=== PATIENT | male | born 1950 | race Caucasian/White ===

== ENCOUNTER 2023-01-18 14:49 | Outpatient (RCR) | payer MEDICARE, OTHER, SELFPAY | END 2023-01-18 23:59 | disposition home or self-care (01) | LOC: RST 14:49 | PROVIDERS: ATTENDING PHYSICIAN Physical Medicine & Rehabilitation; FAMILY PHYSICIAN Family Medicine | DX: R13.12 Dysphagia, oropharyngeal phase (principal); R47.1 Dysarthria and anarthria; Z85.810 Personal history of malignant neoplasm of tongue | CPT/HCPCS: 92507; 92526 ==

== ENCOUNTER 2023-03-08 13:51 | Outpatient (RCR) | payer MEDICARE, OTHER, SELFPAY | END 2023-03-08 15:43 | disposition home or self-care (01) | LOC: RST 13:51 | PROVIDERS: ATTENDING PHYSICIAN Physical Medicine & Rehabilitation; FAMILY PHYSICIAN Family Medicine | DX: R13.12 Dysphagia, oropharyngeal phase (principal); R47.1 Dysarthria and anarthria; Z85.810 Personal history of malignant neoplasm of tongue | CPT/HCPCS: 92507; 92526 ==

== ENCOUNTER 2023-03-11 16:11 | Outpatient (RCR) | payer MEDICARE, OTHER, SELFPAY | END 2023-03-11 23:59 | disposition home or self-care (01) | LOC: CRHB 16:11 | PROVIDERS: ATTENDING PHYSICIAN Internal Medicine | DX: I25.10 Atherosclerotic heart disease of native coronary artery without angina pectoris (principal); Z95.1 Presence of aortocoronary bypass graft | CPT/HCPCS: G0422 ==

== ENCOUNTER 2023-03-14 05:04 | Observation (INO) | payer MEDICARE, OTHER, SELFPAY ==
[2023-03-13 20:43] VITALS: BP 110/82; BMI 22.0
[2023-03-13 21:33] LABS: % Basophils 0.4 % (0-2); % Eosinophils 0.6 % (0-6); % Immature Granulocytes 0.1 % (0-0.5); % Monocytes 7.5 % (1.7-9.3); % Neutrophils 75.4 % (42.2-75.2); Absolute Lymphocytes 1.1 10^3/uL (1.2-3.4); Absolute Monocytes 0.5 10^3/uL (0.1-0.6); Absolute Neutrophils 5.2 10^3/uL (1.4-6.5); Hematocrit 41.9 % (39.0-52.0); Hemoglobin 13.9 g/dL (13.0-18.0); Mean Corp Hgb Conc. 33.2 g/dL (33.0-37.0); Mean Corpuscular Hgb 31.2 pg (27.0-31.0); Mean Corpuscular Volume 93.9 fL (80.0-94.0); Mean Platelet Volume 10.8 fL (7.4-10.4); Nucleated Red Blood Cells % 0 % (-); Platelet Count 226 10^3/uL (130-400); Red Blood Cell Count 4.46 10^6/uL (4.70-6.10); Red Cell Dist. Width 13.3 % (11.5-14.5); White Blood Cell Count 6.9 10^3/uL (4.8-10.8)
[2023-03-13 21:44] LABS: Lactic Acid 1.3 mmol/L (0.7-2.0)
[2023-03-13 21:50] LABS: ALT (SGPT) 18 U/L (0-50); AST (SGOT) 32 U/L (17-59); Albumin 4.5 g/dl (3.5-5.0); Alkaline Phosphatase 124 U/L (38-126); Blood Urea Nitrogen 24 mg/dl (9-20); Calcium 9.8 mg/dl (8.4-10.2); Carbon Dioxide 29 mmol/L (22-30); Chloride 99 mmol/L (98-107); Estimated Creatinine Clearance 111 ml/min; Glucose 141 mg/dl (70-99); Lipase 207 U/L (23-300); Potassium 4.3 mmol/L (3.5-5.1); Sodium 135 mmol/L (135-145); Total Bilirubin 1.1 mg/dl (0.2-1.3); Total Protein 7.6 g/dl (6.3-8.2); eGFR > 60.00
[2023-03-13 21:57] LABS: Troponin I < 0.012 ng/ml
--- NOTE | 2023-03-13 22:04 | ED.GENMED ---
History of Present Illness
General
Chief Complaint: Abdominal Pain
Source: patient and family
Time Seen by Provider: 03/13/23 21:54
Travel History
Have you had any contact with someone who has COVID-19?: No
Do you have any symptoms of coronavirus? Fever > 100 degrees, chills, cough, shortness of breath, sore throat, loss of taste or smell, muscle aches, or headache?: No
History of Present Illness
History of Present Illness:
This patient is a 73-year-old male with a history of CAD, A-fib, neck cancer status post resection, feeding tube, COPD, etc. who presents emergency department complaints of upper abdominal pain since about 530 tonight. The pain was gradual in onset
and getting worse. Sometimes he notes the pain also in his back. The pain was not sudden onset. He denies vomiting but does note nausea. He denies fever, chills, chest pain, shortness of breath, lower abdominal pain, urinary symptoms. Patient
uses feeding tube for a afternoon feeding without difficulty. Patient denies other complaints. Of note, patient just finished cardiac rehab today with a 'passed with [facility]' report.
Past History
Past History
ED Past Medical History: Cancer (tongue, txed w/ chemo/XRT), GERD and HTN; Negative CAD or NIDDM
ED Past Surgical History: Other (radical neck)
Patient has exhibited threatening behavior?: No
PSI?: No
Social History
Tobacco: Non-smoker
Alcohol: None
Drug: None
Personal:
Employment: Employed
Phy Exam
Physical Exam
Physical Exam:
GENERAL: Alert , in no apparent distress
EYE: pupils equal and reactive
NECK: Supple, no significant adenopathy, obvious area of resection noted at the left anterior neck area without swelling redness warm.
ENT: o/p clr, mm slightly dry.
CARDIAC: Regular rate and rhythm .
LUNGS: Clear breath sounds bilaterally, no acute respiratory distress, no wheezes/rales/rhonchi
ABDOMEN: Soft, moderate epigastric tenderness, no r/g, normal active bowel sounds, feeding tube without surrounding drainage or bleeding
NEUROLOGICAL: Alert and oriented, no focal neuro deficits
SKIN: Warm and dry, skin intact.
MUSCULOSKELETAL: No edema, well perfused.
PSYCH: Normal and appropriate interaction.
Course
Orders/Labs/Results
Orders:
Orders
03/13/23 20:48
Electrocardiogram (*1) Urgent
Reason for Study: Chest Pain
EKG- Treatment ONCE
03/13/23 21:12
Complete Blood Count/With Diff Urgent
Comprehensive Metabolic Panel Urgent
Lipase Urgent
Comment: ADD ON
Troponin I Urgent
03/13/23 21:21
Add On- LAB Urgent
Tests Added?: lipase
03/13/23 21:25
Lactic Acid Urgent
Blood Culture Urgent
JOCELYN Source: Blood/Venous
Specimen Description:
03/13/23 22:01
HYDROmorphone [Dilaudid] 1 mg IV NOW STA
03/13/23 22:04
CT Abd/Pel (IV only)-DH only Urgent
Comment:
Reason For Exam: upper abd pain, n
Ondansetron Injectable [Zofran] 4 mg IV NOW STA
03/14/23 00:12
CXR2 [CR Chest - 2 Views ] Stat
Comment:
Reason For Exam: pain
03/14/23 00:20
Troponin I Urgent
03/14/23 01:51
HYDROmorphone [Dilaudid] 1 mg IV NOW STA
03/14/23 01:52
Piperacillin/Tazo 4.5 Gram [Zosyn] 4.5 gram in 100 ml IV NOW
03/14/23 04:00
Admit/Transfer Patient As Directed
Co-Sign Provider:
Level of Care: Observation services
Assign to:: Telemetry
Physician / Group: Ruddy
Diagnosis: Abd Pain
Reason for Telemetry: Chest Pain syndromes
Date to Stop Telemetry: 03/16/23
Time to Stop Telemetry: 11:00
03/14/23 04:01
Code Status As Directed
Resuscitation Status: Full Code
03/14/23 05:31
0.9% Sodium Chloride 1000 ml [Nss] 1,000 ml IV 80 mls/hr
Acetaminophen [Tylenol Oral Solution] 325 mg TUBE Q4HPRN PRN
HYDROmorphone [Dilaudid] 0.5 mg IV Q4HPRN PRN
Ondansetron Injectable [Zofran] 4 mg IV Q6HPRN PRN
03/14/23 05:31
DIETARY CONSULT Routine
Reason for Consult: Tube feeding
Activity As Directed
Activity Level: Ambulate
With Assistance
Bladder Scan As Directed
Follow Bladder Retention/Intermittent Cath Algorithm?: Yes
PRN if no void in __ hours: 6
Frequency: Per Retention Algorithm
If Bladder Scan Result >: 400
then:: Straight cath
I/O [Intake/ Output] As Directed
Frequency: Per unit guidelines
Pneumatic Compression Sleeves As Directed
Type: Knee high
Precautions As Directed
Type of Precautions: Aspiration
Straight Cath As Directed
Frequency: Per Retention Algorithm
Additional Instructions: straight cath as needed per acute urinary retention algorithm for 24 hrs
Additional Instructions: for bladder scan greater than 400 mL
Vital Signs As Directed
Frequency: Per unit guidelines
Oxygen Therapy [O2 Therapy] [RESP] Routine
Titrate/Wean O2 to maintain O2 sat greater than (%): 94
Rx Incentive Spirometry [RESP] Routine
Frequency: q1h while awake
Ot Eval And Treat Routine
PT Consult [Pt Eval And Treat] Routine
Activity Level: Ambulate
With Assistance
DX Deep Vein Thrombosis Video Routine
03/14/23 07:00
Levothyroxine [Synthroid] 25 mcg TUBE DAILY AT 0700
03/14/23 07:43
Basic Metabolic Panel IN AM
Complete Blood Count/No Diff IN AM
Troponin I Q6H
03/14/23 08:00
Aspirin Chewable [Low Strength Aspirin] 81 mg TUBE DAILY
Cholecalciferol (Vitamin D3) [VITAMIN D3 (cholecalciferol)] 250 mcg TUBE MOTUWETHFR
Clopidogrel Bisulfate [Plavix] 75 mg TUBE DAILY
Lactobac/Bifidobac [Visbiome] 1 cap TUBE DAILY
Metoprolol [Lopressor] 12.5 mg TUBE Q12
Multiple Vitamins [Daily Vitamin/Centrum] 15 ml TUBE DAILY
Pantoprazole [Protonix IV] 40 mg IV DAILY
03/14/23 11:31
Troponin I Q6H
03/14/23 17:31
Troponin I Q6H
03/15/23 Breakfast
NPO
Allow oral meds: No
Allow clear liquids: Sips of Clears
03/16/23 11:00
DC Protocol for Telemetry ONCE
Abnormal Lab Results
03/13/23
21:12
RBC 4.46 L 10^6/uL
(4.70-6.10)
MCH 31.2 H pg
(27.0-31.0)
MPV 10.8 H fL
(7.4-10.4)
Absolute Lymphs (auto) 1.1 L 10^3/uL
(1.2-3.4)
Neutrophils % 75.4 H %
(42.2-75.2)
Lymphocytes % 16.0 L %
(20.5-51.1)
BUN 24 H mg/dl
(9-20)
Creatinine 0.6 L mg/dL
(0.7-1.3)
Glucose 141 H mg/dl
(70-99)
03/13/23 21:12
03/13/23 21:12
Vital Signs
Initial and Last Documented VS:
Initial Vital Signs
Temp Pulse Resp BP Pulse Ox
98.2 F 78 16 110/82 95
03/13/23 20:43 03/13/23 20:43 03/13/23 20:43 03/13/23 20:43 03/13/23 20:43
Last Documented Vital Signs
Temp Pulse Resp BP Pulse Ox
97.8 F 76 18 99/71 98
03/14/23 07:00 03/14/23 07:00 03/14/23 07:00 03/14/23 07:00 03/14/23 09:08
*Critical Care Note
Total Time (30-74mins, 75-104mins- exclusive of procedures): Not Applicable
Update Note
Update Note:
Patient presents to the Emergency Department with ___abdominal pain
Number and Complexity of Problems Addressed at the Encounter
� Chronic conditions affecting care:
� Acute Exacerbation and/or Progression of Chronic Illness:
� Differential Diagnosis includes: But not limited to bowel obstruction, mesenteric ischemia, pancreatitis, hepatitis, gastritis, etc.
Amount and/or Complexity of Data to be Reviewed and Analyzed
� I performed an independent evaluation of and my interpretation is:
EKG: Read by me, normal sinus rhythm, right bundle branch block, no acute ischemia
CT:
Xrays:�No CT evidence for an acute inflammatory process in the abdomen or pelvis.
2. Resolution of pneumatosis/pneumoperitoneum at the hepatic flexure.
3. Small left pleural effusion with an adjacent left basilar parenchymal opacity that may represent atelectasis or pneumonia. Volume of pleural fluid has decreased compared to the CT abdomen/pelvis from 10/23/2022.
Laboratory Studies: Lipase normal
Other: Chest x-ray read by me, increase in left pleural effusion compared to prior
� Review of other/old records reveals: October 2022 patient admitted for intestinal pneumatosis coli and free air, etiology not specifically determined, symptoms resolved.
� Clinical information was obtained by an independent historian: at bedside
� Prescriptions/Medications Considered but not given:
� Further testing considered but not performed:
Risk of Complications and/or Morbidity or Mortality of Patient Management
� Social determinants of health affecting care:
� Discussion with other providers (PCP, Hospitalists, Consultants, etc):
� Escalation of care including admission/observation vs risk of discharge considered:1213am reassessement...abd soft, no spec ttp now, however pt still experiencing pain although much imp;roved, asking to drink something. No v.
Lungs again without w/r/r. Trop wnl, repeat ordered. Add on cxr given CT finding of ?atelect vs pna.
1:54 AM patient's abdomen remains soft, no acute etiology for his pain noted in workup thus far. However, he does have a worsening left pleural effusion and this may explain his upper abdominal/back pain. Although he initially denied dyspnea, when
I described his finding of an effusion he responded 'old that makes sense, I been feeling short of breath the last 2 days when I go up the steps'. He denies cough or fever. Unclear if underlying pneumonia. Will medicate and admit discussed with
Dr. Brock. Doubt mesenteric ischemia at this time...no r/g, nl lactic, nl wbc, etc.
ED Attending Note
-
Portions of this chart may have been created with voice recognition software.� Occasional wrong word or��sound alike� substitutions may have occurred due to the inherent limitations of voice recognition software.
Discharge Plan
Departure
Patient Disposition: Admit
Date of Disposition: 03/14/23
Time of Disposition: 02:13
Admit to: Telemetry
Admit to doctor: ruddy
Presentation/result/management discussed w/ accepting MD/DO: Hospitalist
Discharge Problem:
Pleural effusion
Interventions
Interventions:
*Risk Screen - Suicide Last Done: 03/14/23 05:52
*Neglect/Abuse Screening Last Done: 03/13/23 20:43
ED- Fall Risk Assessment Last Done: 03/13/23 22:46
*ED COVID-19 Vaccine History Last Done: 03/14/23 05:52
*Nursing Disposition Last Done: 03/14/23 05:46
VW-Voyoij-Guyvttholw Assessment Last Done: 03/13/23 22:46
Discharge Date and Time
Discharge Date/Time: 03/14/23 05:47
[2023-03-13] MEDS: DILAUDID 1 MG IV (22:28)
[2023-03-13] MEDS: ZOFRAN 4 MG IV (22:28)
[2023-03-14 00:22] VITALS: BP 118/84
[2023-03-14 00:52] LABS: Troponin I < 0.012 ng/ml
[2023-03-14] MEDS: ZOSYN 100 IV (02:02)
[2023-03-14] MEDS: DILAUDID 1 MG IV (02:02)
[2023-03-14 02:03] VITALS: BP 114/77
[2023-03-14 03:00] VITALS: BP 94/64
--- NOTE | 2023-03-14 04:06 | HPS.HSE ---
Family Physician
-
Family Physician: Jigar Chopra
Chief Complaint
-
Abdominal Pain
History of Present Illness
Patient is a 73y M with PMH significant for head and neck cancer, ASCVD and chronic PEG-dependent dysphagia who presents to ED complaining of abdominal pain. Patient states that he developed onset of severe epigastric abdominal pain around 5:30
PM. He states the pain was in the epigastric region with radiation straight through to the back. He notes that the pain was dull in nature. No burning or stabbing. He was seated, not exerting himself and not utilizing his PEG tube at the time
the pain started. Patient states that the pain was quite severe and did not charissa and so he presented to the ED for further evaluation and treatment. Patient was treated in the ED with Zofran and Dilaudid and at the time of my examination he is
completely pain free. He has no additional complaints.
Patient states that he woke late today - around 10 AM. As a result of this, he staggered only 3 hours between his morning and afternoon feedings. He takes in 2 cans of Jevity (16oz total) and a large cup of coffee for breakfast and a large cup of
water with lunch / dinner.
He took in his breakfast allotment between 10-11 AM and then his lunch between 1-2 PM. He typically waits about 5-6 hours between meals.
Patient denies any other changes in his medications, TF regimen, etc.
He attended his final session of cardiac rehab today (following CABG in 09/2022). He had no issues during his session and notes that he passed with flying colors.
Medical History
Past Medical History
Past Medical History: Reports Other
Additional Past Medical History:
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
GERD
Hypertension
Dysphagia
Hypothyroidism
ASCVD (CAD, Carotid Disease) �
Paroxysmal Atrial Fibrillation
Pneumothorax
Bilateral Pleural Effusions
Meningitis / Encephalitis
Past Surgical History: Reports Other
Additional Past Surgical History:
Wide Excision of Head and Neck Cancer
CABG x 3
PEG Placement
Social History
Tobacco: Non-smoker
Alcohol: Occasional
Drug: None
Family History
Family History: Not pertinent
Allergies / Home Medications
Allergies reflects when Allergies were last updated in [facility].
Home Medications with original date entered in [facility]
Allergy/Medication List:
Allergies
Allergy/AdvReac Type Severity Reaction Status Date / Time
lobster Allergy SEVERE Verified 03/13/23 20:43
STOMACH
PAIN
venom-honey bee Allergy BEE Verified 03/13/23 20:43
STING-ANAPHYLAXIS
Home Medications
lactose-reduced food with fiber 0.06 gram-1.5 kcal/mL oral liquid (Jevity 1.5 Jasson) 2 ea feeding tube TID nutrition drink 09/25/22
acetaminophen 325 mg/10.15 mL oral suspension 325 mg (10.15 mL) feeding tube Q4HPRN PRN mild pain #304.5 mL 10/18/22
aspirin 81 mg tablet,delayed release 81 mg feeding tube DAILY Blood Clot Prevention/Tx #30 tabs 10/18/22
cholecalciferol (vitamin D3) 125 mcg (5,000 unit) tablet (Vitamin D3) 10,000 unit feeding tube MOTUWETHFR Supplement #30 tabs 10/18/22
clopidogrel 75 mg tablet 75 mg feeding tube DAILY #30 tabs 10/18/22
metoprolol tartrate 25 mg tablet 12.5 mg feeding tube Q12 #60 tabs 10/18/22
multivit and minerals-ferrous gluconate 9 mg iron/15 mL oral liquid (Multi-Jj) 15 ml feeding tube DAILY #30 mL 10/18/22
Culturelle Kids 2 packet feeding tube DAILY 03/14/23
levothyroxine 25 mcg tablet 25 mcg PO DAILY 03/14/23
Review of Systems
-
History Source: Patient
A 12 point ROS was completed and negative except as noted: Yes
Constitutional: Denies Fever or Chills
EENT: Denies Sore Throat
Respiratory: Denies Cough or Trouble Breathing
Cardiac: Denies Chest Pain or Palpitations
Abdomen/GI: Reports Abdominal Pain; Denies Nausea, Vomiting or Diarrhea
: Denies Dysuria, Frequency or Flank Pain
Musculoskeletal: Denies Joint Pain or Edema
Neurological: Denies Dizzy or Headache
Psych: Denies Depression or Anxiety
Physical Exam
Vital Signs
Vital Signs
Temp Pulse Resp BP Pulse Ox
98.2 F 78 16 94/64 95
03/13/23 20:43 03/13/23 20:43 03/13/23 20:43 03/14/23 03:00 03/14/23 03:31
Physical Exam
General: Other (73y M in no distress.)
HEENT: Other (Chronic post-surgical changes of the L neck / face. Dysarthria secondary to surgeries / scarring.)
Respiratory: Other (Decreased BS at L base - otherwise clear. No W/R/R.)
Cardiac: S1/S2 and Regular Rhythm; No Murmur
GI: Soft, Non Tender, Non Distended, Normal Bowel Sounds and Other (PEG in place. No surrounding erythema / discharge / etc.)
Musculoskeletal: No Clubbing, No Cyanosis and No Edema
Neuro: AO x 3
Laboratory Results
-
03/13/23 21:12
03/13/23 21:12
Laboratory Results
Lactic Acid 1.3 mmol/L (0.7-2.0) 03/13/23 21:25
Total Bilirubin 1.1 mg/dl (0.2-1.3) 03/13/23 21:12
AST 32 U/L (17-59) 03/13/23 21:12
ALT 18 U/L (0-50) 03/13/23 21:12
Alkaline Phosphatase 124 U/L (38-126) 03/13/23 21:12
Troponin I < 0.012 ng/ml 03/14/23 00:20
Lipase 207 U/L (23-300) 03/13/23 21:12
Impression/Plan
-
A/P: Patient is a 73y M with PMH significant for head and neck cancer with chronic dysphagia / dysarthria, ASCVD and A-Fib who presents to ED complaining of abdominal pain.
Abdominal Pain
- Observe overnight for further evaluation and treatment.
- Unclear etiology of symptoms at present; though, ? if it is related to significantly increased volume of material infused through tube in short time today as outlined in HPI.
- Patient is pain free at this time.
- CT A/P was done which shows no acute abnormality in the A/P.
- PEG appears to be well-positioned.
- Continue meds via PEG.
- Dietary evaluation for tube feeds - resume bolus feedings in AM if patient remains symptom-free.
- PPI daily for now.
- Follow for any new / recurrent symptoms.
ASCVD
- Monitor on tele and follow serial troponin given epigastric pain and known CAD.
- Just completed cardiac rehab today with no issues.
- Low suspicion that presentation is related to ACS.
- Continue usual CV med regimen.
Left Pleural Effusion
- Noted on CXR and CT scan. CT clearly indicates that effusion is decreased from prior.
- There is associated pulm volume loss - likely adjacent atelectasis.
- Patient is afebrile, non-toxic with no leukocytosis, cough or respiratory complaints to suggest pneumonia.
- Observe off of further abx.
- Encourage incentive spirometry / deep breathing for atelectasis.
- Follow for any new / worsening symptoms, fevers, etc.
Hypothyroidism
- Stable. Continue T4 supplementation.
Head and Neck Cancer
Chronic Dysphagia
Chronic Dysarthria
- Stable. PEG -dependent for meds and meals.
- Patient states that he does take small sips of water occasionally.
- Dietary eval as noted above.
- Continue meds via tube.
DVT Prophylaxis: SCDs
Code Status: Full
[2023-03-14 05:15] VITALS: BP 102/61
[2023-03-14 05:38] VITALS: BMI 22.0
[2023-03-14 05:44] VITALS: BP 96/59
[2023-03-14] MEDS: SYNTHROID 25 MCG TUBE (06:02)
[2023-03-14] MEDS: NSS 1000 IV (06:02)
--- NOTE | 2023-03-14 06:23 | PTCARENOTE ---
Received patient from ED via stretcher. Pt AAOX3. NSR on pvc monitor. IVFs infusing without difficulty. Call trujillo within reach. Plan of care ongoing.
[2023-03-14 07:00] VITALS: BP 99/71
[2023-03-14 07:56] LABS: Hematocrit 36.6 % (39.0-52.0); Hemoglobin 12.4 g/dL (13.0-18.0); Mean Corp Hgb Conc. 33.9 g/dL (33.0-37.0); Mean Corpuscular Volume 91.5 fL (80.0-94.0); Red Cell Dist. Width 13.6 % (11.5-14.5); White Blood Cell Count 7.4 10^3/uL (4.8-10.8)
[2023-03-14 08:18] LABS: Mean Platelet Volume 10.4 fL (7.4-10.4); Platelet Count 180 10^3/uL (130-400)
[2023-03-14 08:24] LABS: Troponin I < 0.012 ng/ml
--- NOTE | 2023-03-14 08:33 | W.PN.HOSP.TC ---
Today's Communication/Plan
-
Discharge planning today
Assessment / Plan
Assessment / Plan
General: Other (73y M in no distress.)
HEENT: Other (Chronic post-surgical changes of the L neck / face.� Dysarthria secondary to surgeries / scarring.)
Respiratory: Other (Decreased BS at L base - otherwise clear.� No W/R/R.)
Cardiac: S1/S2 and Regular Rhythm; No Murmur
GI: Soft, Non Tender, Non Distended, Normal Bowel Sounds and Other (PEG in place.� No surrounding erythema / discharge / etc.)
Musculoskeletal: No Clubbing, No Cyanosis and No Edema
Neuro: AO x 3
A/P:
Abdominal Pain
�- Observed overnight for further evaluation and treatment. Currently patient back to normal and no need for further hospital care. Patient is good to be discharged home in stable condition today.
�- Unclear etiology of symptoms at present; though, ? if it is related to significantly increased volume of material infused through tube in short time today as outlined in HPI.
�- Patient is pain free at this time.
�- CT A/P was done which shows no acute abnormality in the A/P.
�- PEG appears to be well-positioned.
�- Continue meds via PEG.
�- Dietary evaluation for tube feeds - resume bolus feedings in AM if patient remains symptom-free.
�- PPI daily for now.
�- Follow for any new / recurrent symptoms.
ASCVD
�- Monitor on tele and follow serial troponin given epigastric pain and known CAD.
�- Just completed cardiac rehab today with no issues.
�- Low suspicion that presentation is related to ACS.
�- Continue usual CV med regimen.
Left Pleural Effusion
�- Noted on CXR and CT scan.� CT clearly indicates that effusion is decreased from prior.
�- There is associated pulm volume loss - likely adjacent atelectasis.
�- Patient is afebrile, non-toxic with no leukocytosis, cough or respiratory complaints to suggest pneumonia.
�- Observe off of further abx.
�- Encourage incentive spirometry / deep breathing for atelectasis.
�- Follow for any new / worsening symptoms, fevers, etc.
Hypothyroidism
�- Stable.� Continue T4 supplementation.
Head and Neck Cancer
Chronic Dysphagia
Chronic Dysarthria
�- Stable.� PEG -dependent for meds and meals.
�- Patient states that he does take small sips of water occasionally.
�- Dietary eval as noted above.
�- Continue meds via tube.
DVT Prophylaxis:� SCDs
Code Status:� Full
Anticipated Discharge: Today
Subjective/Interval History
-
Date of Service: March 14, 2023
Patient denies any abdominal pain today. He is tolerating feedings without problems. He wants to go home this morning.
Objective Data
-
Labs:
Laboratory Results
03/13/23 03/14/23
21:12 07:43
WBC 6.9 7.4
Hgb 13.9 12.4 L
Hct 41.9 36.6 L
Plt Count 226 180 D
Sodium 135 Pending
Potassium 4.3 Pending
Chloride 99 Pending
Carbon Dioxide 29 Pending
BUN 24 H Pending
Creatinine 0.6 L Pending
Glucose 141 H Pending
Calcium 9.8 Pending
Total Bilirubin 1.1
AST 32
ALT 18
Alkaline Phosphatase 124
Vital Signs:
Vital Signs
Temp Pulse Resp BP Pulse Ox
97.6 F 71 18 96/59 98
03/14/23 05:44 03/14/23 05:44 03/14/23 05:44 03/14/23 05:44 03/14/23 05:44
--- NOTE | 2023-03-14 08:48 | W.DCSUMMARY ---
Discharge Summary
Discharge Data
Date of Admission: 03/14/23
Date of Discharge: 03/14/23
-
Pending Results: No
Hospital Course
Patient is 73 years old man with history of head and neck cancer, ASCVD, chronic back dependent dysphagia, came to the hospital abdominal pain. Upon admission he had a CT scan of the abdomen that showed no acute abdominal pathology. PEG was in
good position and tolerated feedings well. Upon evaluation the following day after admission patient is back to his normal with abdominal exam unremarkable and he is eager to go home today. He did have a left lower effusion but is actually
decreasing from prior images and his oxygenation is normal, normal WBC, afebrile, hemodynamically stable and no need for further interventions and can be follow-up as outpatient. He also had 2 troponins that was unremarkable less than 0.012 and
chest pain-free. His rest of electrolytes and renal function are unremarkable. Patient will be discharged in relatively stable condition today.
Discharge Plan
-
Patient Disposition: Home (Routine Discharge)
Discharge Diagnosis/Procedures: Abdominal pain. Chronic left pleural effusion (diminishing). History of head and neck cancer.
Diet: Other diet
Additional Diets: Continue diet through PEG.
Activity: As tolerated
Blood Work: Please PCP to order CBC, BMP within 1 week.
Referrals:
Jigar Chopra, DO [Family Provider] - in less than 1 week
Prescriptions:
Continued
Jevity 1.5 Jasson 0.06 gram-1.5 kcal/mL Liquid
2 ea feeding tube TID
levothyroxine 25 mcg Tablet
25 mcg PO DAILY
Culturelle Kids
2 packet feeding tube DAILY
Multi-Jj 9 mg iron/15 mL Liquid
15 ml feeding tube DAILY Qty: 30 0RF
clopidogrel 75 mg tablet
75 mg feeding tube DAILY Qty: 30 0RF
aspirin 81 mg Tablet,Delayed Release (Dr/Ec)
81 mg feeding tube DAILY Qty: 30 0RF
metoprolol tartrate 25 mg Tablet
12.5 mg feeding tube Q12 Qty: 60 2RF
cholecalciferol (vitamin D3) [Vitamin D3] 125 mcg (5,000 unit) Tablet
10,000 unit feeding tube MOTUWETHFR Qty: 30 0RF
acetaminophen 325 mg/10.15 mL Suspension
325 mg feeding tube Q4HPRN PRN (Reason: mild pain) Qty: 304.5 0RF
Discharge Orders:
Discharge Patient (As Directed); Ordered 03/14/23
Ordered By: Nathaniel Etienne
Discharge Date and Time
Discharge Date/Time: 03/14/23 11:05
[2023-03-14 08:55] LABS: Blood Urea Nitrogen 21 mg/dl (9-20); Calcium 9.5 mg/dl (8.4-10.2); Carbon Dioxide 29 mmol/L (22-30); Chloride 101 mmol/L (98-107); Estimated Creatinine Clearance 111 ml/min; Glucose 97 mg/dl (70-99); Potassium 4.3 mmol/L (3.5-5.1); Sodium 137 mmol/L (135-145); eGFR > 60.00
--- NOTE | 2023-03-14 14:44 | CM ---
CM following for d/c planning
Chart reviewed
CM met with the patient at bedside; IA completed
Pt states he and his spouse reside in a [place] with 1STE
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
Pt has no past hx of SNF/DME and has had [facility] in the past for home care
Pt has prescription coverage and rx's are filled at [facility] on [address]
Pt PCP-Dr. Chopra
CM spoke with the patient's daughter Brandee via phone to discuss discharge options
It was decided that the patient wanted to participate in outpatient rehab near his home
CM requested a script for outpatient therapy which the hospitalist provided
Pt has been cleared medically for d/c
IMM reviewed and copy provided
Pt indicates his spouse will transport him home at time of d/c
PLAN; d/c home with outpatient PT
== END 2023-03-14 11:05 | disposition home or self-care (01) ==
LOC: 4 EAST ACU 05:04
PROVIDERS: Emergency Medicine; ADMITTING PHYSICIAN Hospitalist; ATTENDING PHYSICIAN Hospitalist; EMERGENCY PHYSICIAN Emergency Medicine; FAMILY PHYSICIAN Family Medicine
DX: R10.10 Upper abdominal pain, unspecified (principal); J90 Pleural effusion, not elsewhere classified; R07.9 Chest pain, unspecified; R13.10 Dysphagia, unspecified; R47.1 Dysarthria and anarthria; I25.10 Atherosclerotic heart disease of native coronary artery without angina pectoris; I48.0 Paroxysmal atrial fibrillation; J44.9 Chronic obstructive pulmonary disease, unspecified; K21.9 Gastro-esophageal reflux disease without esophagitis; I10 Essential (primary) hypertension; E03.9 Hypothyroidism, unspecified; Z85.89 Personal history of malignant neoplasm of other organs and systems; Z92.21 Personal history of antineoplastic chemotherapy; Z92.3 Personal history of irradiation; Z93.1 Gastrostomy status; Z95.1 Presence of aortocoronary bypass graft; Z91.030 Bee allergy status; Z91.013 Allergy to seafood; Z79.02 Long term (current) use of antithrombotics/antiplatelets; Z79.890 Hormone replacement therapy
CPT/HCPCS: 71046; 74177; 80048; 80053; 83605; 83690; 84484; 85025; 85027; 87040; 93005; 96365; 96375; 96376; 99285; G0378; Q9967

== ENCOUNTER → 2023-04-24 09:18 | Outpatient (REF) | payer MEDICARE, OTHER, SELFPAY | LOC: DHCBC HW 09:18 | PROVIDERS: ATTENDING PHYSICIAN Internal Medicine; FAMILY PHYSICIAN Family Medicine | DX: I25.10 Atherosclerotic heart disease of native coronary artery without angina pectoris (principal); Z92.3 Personal history of irradiation; Z95.1 Presence of aortocoronary bypass graft; R06.09 Other forms of dyspnea | CPT/HCPCS: 93306 ==

== ENCOUNTER 2023-08-23 05:02 | Inpatient (IN) | payer MEDICARE, OTHER, SELFPAY ==
[2023-08-23] VITALS (88 sets, daily range): BP systolic 64–204; BP diastolic 43–141; PULSE 2–91; O2SAT 91–92; BMI 21.7
--- NOTE | 2023-08-23 01:48 | ED.GENMED ---
History of Present Illness
General
Chief Complaint: Breathing Problem
Source: patient and family
Exam Limitations: clinical condition
Time Seen by Provider: 08/23/23 01:34
Nursing documentation reviewed up to this point in time: agreed with
History of Present Illness
History of Present Illness:
Pleasant 73-year-old male presents with shortness of breath that began yesterday afternoon. Patient has had some nausea with vomiting. Patient thinks he might of aspirated some vomitus. Patient has a history of head and neck cancer. He had a
radical neck dissection years ago. Patient also has polymyalgia rheumatica and is being followed by rheumatology. He is on a chronic steroid. 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 He also did
suffer from COVID.
Vital signs are stable. Patient not hypoxic
Nursing note reviewed. I agree with nursing documentation up to this point in time.
Home Meds and allergies reviewed.
NUMBER AND COMPLEXITY OF PROBLEMS ADDRESSED AT THE ENCOUNTER
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
� Acute Exacerbation and/or Progression of Chronic Illness: Acute shortness of breath
� Differential Diagnosis includes:
AMOUNT AND/OR COMPLEXITY OF DATA TO BE REVIEWED AND ANALYZED
I performed an independent evaluation of the following and my interpretation is:
EKG:
CT:
X-rays: Bilateral pneumonia, likely aspiration
Ultrasound:
Laboratory Studies: 8.7 white blood cell count
Other:
Review of other/old records:
Clinical information was obtained by an independent historian:
Prescriptions/Medications Considered but not given:
Further testing considered but not performed:
RISK OF COMPLICATIONS AND/OR MORBIDITY OR MORTALITY OF PATIENT MANAGEMENT
Social determinants of health affecting care: Good Social Support is at the bedside. Patient is a full code.
Discussion with other providers: Hospitalist for admission
Escalation of care including admission/observation vs risk of discharge considered: Patient to be admitted to the hospital service. Hypoxic on room air.
CRITICAL CARE NOTE:
Critical care statement: A total of 35 minutes of critical care time was provided for this patient. This time is separate from time utilized to perform the aforementioned documented procedures. Aggregate critical care time includes only time
during which I was engaged in work directly related to the patient's care, as described above, whether at the bedside or elsewhere in the Emergency Department.
Total Time (exclusive of procedures):35
Update:
Past History
Past History
ED Past Medical History: Cancer (tongue, txed w/ chemo/XRT), GERD and HTN; Negative CAD or NIDDM
ED Past Surgical History: Other (radical neck)
Patient has exhibited threatening behavior?: No
PSI?: No
Social History
Tobacco: Non-smoker
Alcohol: None
Drug: None
Personal:
Employment: Employed
Phy Exam
General Physical Exam
General Presentation: moderate distress
General age: appears older than age
General Skin: warm, dry and feels hot
General Habitus: cachetic and frail
General Mental: anxious
General Hydration: appears well hydrated
ENT Exam
ENT Exam: EOMI, pharynx normal, neck supple and normocephalic
Eye Exam
Eye Exam: PERRL, cornea clear and conjunctiva normal
Cardiovascular Exam
Cardiovascular Exam: regular rate/rhythm and tachycardia
Pulmonary Exam
Pulmonary Exam: decreased breath sounds (Bilateral bases)
Oxygen Status: BiPAP (Patient was briefly on BiPAP but did not tolerate it.) and oxygen 2 liters via NC
Cough: no cough
Respirations: accessory muscle use, intercostal retractions, labored and moderate effort
Breath Sounds: Wheeze: generalized
Gastrointestinal Exam
Gastrointestinal Exam: normal bowel sounds, non tender, soft, no organomegaly, no pulsatile mass and non distended
Neurological Exam
Neurological Exam: alert, oriented x3, no motor deficits and speech normal
Musculoskeletal Exam
Musculoskeletal Exam: full ROM and no edema
Skin Exam
Skin Exam: normal color, warm/dry, no rash and no petechia
Psychiatric Exam
Psychiatric Exam: normal mood/affect
Scores
Heart Failure Risk
Heart Failure Risk Score: Not Applicable
Course
Orders/Labs/Results
Orders:
Orders
08/23/23 01:45
Cardiac Monitoring- Treatment ONCE
Acetaminophen [Tylenol] 650 mg PO NOW STA
Dexamethasone Sod Phosphate [Decadron] 10 mg IV NOW STA
Ipratropium/Albuterol Sulfate [Duoneb] 3 ml INH R NOW STA
O2 Therapy [RESP] Stat
Simple Mask Liter Flow: 8 LPM
Non-Rebreather Mask: Yes
Titrate/Wean O2 to maintain O2 sat greater than (%): 92
08/23/23 01:47
CR Chest Portable - 1 View Urgent
Comment:
Reason For Exam: Severe dyspnea
Reason Study Needs to be Portable: Patient Unstable
08/23/23 01:53
ABG [Arterial Blood Gas] Urgent
%Oxygen/Room Air: nrb
Complete Blood Count/With Diff Urgent
Comprehensive Metabolic Panel Urgent
Lactic Acid Q4H
Comment: CANCEL 2nd LACTIC ACID IF 1st LACTIC ACID IS LESS THAN 2
NT-proBNP Urgent
Prothrombin Time Urgent
Troponin I Urgent
Blood Culture Urgent
JOCELYN Source: Blood/Venous
Specimen Description:
08/23/23 02:20
Ondansetron Injectable [Zofran] 4 mg .ROUTE .STK-MED ONE
08/23/23 02:21
Acetaminophen 1000MG/100Ml [Ofirmev] 1,000 mg in 100 ml .ROUTE .STK-MED
08/23/23 02:22
Ondansetron Injectable [Zofran] 4 mg IV NOW STA
08/23/23 02:33
Acetaminophen 1000MG/100Ml [Ofirmev] 1,000 mg in 100 ml IV ONCE
Acetaminophen IV Indication:: Targeted Temp Management
08/23/23 02:36
0.9% Sodium Chloride 1000 ml [Nss] 1,000 ml IV BOLUS
Piperacillin/Tazo 4.5 Gram [Zosyn] 4.5 gram in 100 ml IV NOW
08/23/23 02:38
Electrocardiogram (*1) Urgent
Reason for Study: Shortness of Breath
EKG- Treatment ONCE
08/23/23 03:00
NORepinephrine 4 MG/250 ML [Levophed] 4 mg in 250 ml IV PER PROTOCOL
Initial dose in mcg/min, then titrate:: 5
Titrate to keep:: MAP > 65 mmHg
Titrate by mcg/min:: 1-2 mcg/min
Frequency of titrations (minutes):: 5
Maximum dose in ICU in mcg/min:: 30
Maximum dose in IMU in mcg/min:: 8
Maximum dose in IVU in mcg/min:: 4
Begin to taper infusion when:: Remained at goal for 4hrs
Taper by mcg/min:: 1-2 mcg/min
Frequency of taper (minutes) if patient maintains goal:: 30
Taper to off?: Yes
If infusion off & no longer maintaining goal:: Contact Provider
08/23/23 04:10
Admit/Transfer Patient As Directed
Co-Sign Provider:
Level of Care: Inpatient admission
Assign to:: ICU
Physician / Group: Vinod
Diagnosis: Sepsis, Aspiration Pneumonia
Reason for Hospitalization: Sepsis, Aspiration Pneumonia
Expected length of stay greater than two midnights?: Yes
ELOS- Estimated Length of Stay in days: 4
I certify the patient meets the requirements for IP care: Yes
08/23/23 04:11
Code Status As Directed
Resuscitation Status: Full Code
08/23/23 05:13
0.9% Sodium Chloride 1000 ml [Nss] 1,000 ml IV 125 mls/hr
Albuterol Nebs [Ventolin Nebules] 2.5 mg INH R Q4HPRN PRN
Ondansetron Injectable [Zofran] 4 mg IV Q6HPRN PRN
08/23/23 05:13
Consult Notification Routine
Specialty to Notify: Blacking Wheel Tender
Date consulting provider notified: 08/23/23
Time consulting provider notified: :
Notified:: Provider
Blacking Wheel Tender Consult Routine
Consulting Provider: Amelia Mosley
Was physician already notified: No
Reason for consult: Sepsis, Hypotension
Stool Culture Routine
JOCELYN Source: Feces/Stool
Specimen Description:
Activity As Directed
Activity Level: Ambulate
With Assistance
Bladder Scan As Directed
Follow Bladder Retention/Intermittent Cath Algorithm?: Yes
PRN if no void in __ hours: 6
Frequency: Per Retention Algorithm
If Bladder Scan Result >: 400
then:: Straight cath
EKG with chest pain [ECG as needed] As Directed
ECG as needed for:: Chest Pain
I/O [Intake/ Output] As Directed
Frequency: Per unit guidelines
Pneumatic Compression Sleeves As Directed
Type: Knee high
Precautions As Directed
Type of Precautions: Aspiration
Straight Cath As Directed
Frequency: Per Retention Algorithm
Additional Instructions: straight cath as needed per acute urinary retention algorithm for 24 hrs
Additional Instructions: for bladder scan greater than 400 mL
Vital Signs As Directed
Frequency: Per unit guidelines
Weight As Directed
Frequency: Daily
Oxygen Therapy [O2 Therapy] [RESP] Routine
Titrate/Wean O2 to maintain O2 sat greater than (%): 94
Ot Eval And Treat Routine
PT Consult [Pt Eval And Treat] Routine
Activity Level: Ambulate
With Assistance
Speech Therapy Eval & Treat Routine
DX Deep Vein Thrombosis Video Routine
08/23/23 05:38
Acetaminophen [Tylenol Oral Solution] 325 mg TUBE Q4HPRN PRN
08/23/23 06:00
Levothyroxine [Synthroid] 50 mcg TUBE DAILY @ 0600
08/23/23 06:05
Basic Metabolic Panel IN AM
Complete Blood Count/No Diff IN AM
LFT [Ebcsd-Zlyz-Jzngmwm] IN AM
Lactic Acid Q4H
Comment: CANCEL 2nd LACTIC ACID IF 1st LACTIC ACID IS LESS THAN 2
Urinalysis Reflex To Culture Urgent
Date Specimen was Collected: 08/23/23
Time Specimen was Collected: 05:15
08/23/23 08:00
Aspirin Chewable [Low Strength Aspirin] 81 mg TUBE DAILY
Clopidogrel Bisulfate [Plavix] 75 mg TUBE DAILY
Hydrocortisone Sod Succinate [Solu-Cortef] 50 mg IV Q8
Ipratropium/Albuterol Sulfate [Duoneb] 3 ml INH R QID
Pantoprazole [Protonix IV] 40 mg IV DAILY
08/23/23 10:00
Piperacillin/Tazo 3.375 Gram [Zosyn] 3.375 gram in 50 ml IV Q6H
08/23/23 18:00
Enoxaparin Sodium [Lovenox] 40 mg SC QPM
Abnormal Lab Results
08/23/23
01:53
Hct 53.0 H %
(39.0-52.0)
MCV 98.5 H fL
(80.0-94.0)
MCH 32.7 H pg
(27.0-31.0)
RDW 14.6 H %
(11.5-14.5)
MPV 11.2 H fL
(7.4-10.4)
Absolute Neuts (auto) 6.9 H 10^3/uL
(1.4-6.5)
Neutrophils % 79.7 H %
(42.2-75.2)
Lymphocytes % 16.3 L %
(20.5-51.1)
pCO2 50 H mmHg
(35-48)
pO2 76 L mmHg
(83-108)
HCO3 30.3 H mmol/L
(21-28)
Chloride 97 L mmol/L
(98-107)
Carbon Dioxide 34 H mmol/L
(22-30)
BUN 28 H mg/dl
(9-20)
Creatinine 0.6 L mg/dL
(0.7-1.3)
Glucose 108 H mg/dl
(70-99)
Lactic Acid 4.4 H* mmol/L
(0.7-2.0)
Calcium 10.8 H mg/dl
(8.4-10.2)
08/23/23 01:53
08/23/23 01:53
Vital Signs
Initial and Last Documented VS:
Initial Vital Signs
Temp Pulse Resp BP Pulse Ox
97.9 F 92 36 148/89 91
08/23/23 01:27 08/23/23 01:27 08/23/23 01:27 08/23/23 01:27 08/23/23 01:27
Last Documented Vital Signs
Temp Pulse Resp BP Pulse Ox
98.0 F 97 18 160/97 97
08/24/23 19:00 08/24/23 18:15 08/24/23 18:15 08/24/23 17:00 08/24/23 18:15
*Critical Care Note
Total Time (30-74mins, 75-104mins- exclusive of procedures): 35
ED Attending Note
-
Portions of this chart may have been created with voice recognition software.� Occasional wrong word or��sound alike� substitutions may have occurred due to the inherent limitations of voice recognition software.
Discharge Plan
Departure
Patient Disposition: Admit
Date of Disposition: 08/23/23
Time of Disposition: 02:53
Admit to: ICU
Presentation/result/management discussed w/ accepting MD/DO: Hospitalist
Condition: Serious
Discharge Problem:
Sepsis, Aspiration pneumonia of both lower lobes
Interventions
Interventions:
*General Assessment Last Done: 08/23/23 01:47
*Neglect/Abuse Screening Last Done: 08/23/23 01:47
ED- Fall Risk Assessment Last Done: 08/23/23 02:29
*Nursing Disposition Last Done: 08/23/23 05:12
ED- Cardiac Assessment Last Done: 08/23/23 02:29
ED- Pulmonary Assessment Last Done: 08/23/23 02:29
Discharge Date and Time
Discharge Date/Time: 08/23/23 05:14
[2023-08-23] MEDS: DECADRON 10 MG IV (02:01)
[2023-08-23 02:08] LABS: % Basophils 0.2 % (0-2); % Eosinophils 0.2 % (0-6); % Immature Granulocytes 0.1 % (0-0.5); % Lymphocytes 16.3 % (20.5-51.1); % Monocytes 3.5 % (1.7-9.3); % Neutrophils 79.7 % (42.2-75.2); Absolute Lymphocytes 1.4 10^3/uL (1.2-3.4); Absolute Monocytes 0.3 10^3/uL (0.1-0.6); Absolute Neutrophils 6.9 10^3/uL (1.4-6.5); Hemoglobin 17.6 g/dL (13.0-18.0); Mean Corp Hgb Conc. 33.2 g/dL (33.0-37.0); Mean Corpuscular Hgb 32.7 pg (27.0-31.0); Mean Corpuscular Volume 98.5 fL (80.0-94.0); Mean Platelet Volume 11.2 fL (7.4-10.4); Nucleated Red Blood Cells % 0 % (-); Platelet Count 187 10^3/uL (130-400); Red Blood Cell Count 5.38 10^6/uL (4.70-6.10); Red Cell Dist. Width 14.6 % (11.5-14.5); White Blood Cell Count 8.7 10^3/uL (4.8-10.8)
[2023-08-23] MEDS: DUONEB 3 ML INH ×2 (02:09→07:46)
[2023-08-23 02:20] LABS: INR 1.02; PT 13.4 Sec (11.4-14.6)
[2023-08-23 02:23] LABS: B.E. 3.9 mmol/L; HCO3 30.3 mmol/L (21-28); O2 Saturation % 97.1 % (94-98); PCO2 50 mmHg (35-48); PO2 76 mmHg (83-108); pH 7.39 (7.35-7.45)
[2023-08-23] MEDS: ZOFRAN 4 MG IV (02:23)
[2023-08-23 02:28] LABS: O2 Therapy NRB
[2023-08-23 02:31] LABS: ALT (SGPT) 26 U/L (0-50); AST (SGOT) 31 U/L (17-59); Alkaline Phosphatase 66 U/L (38-126); Blood Urea Nitrogen 28 mg/dl (9-20); Calcium 10.8 mg/dl (8.4-10.2); Carbon Dioxide 34 mmol/L (22-30); Chloride 97 mmol/L (98-107); Estimated Creatinine Clearance 110 ml/min; Glucose 108 mg/dl (70-99); Potassium 4.1 mmol/L (3.5-5.1); Sodium 144 mmol/L (135-145); Total Bilirubin 1.2 mg/dl (0.2-1.3); Total Protein 7.7 g/dl (6.3-8.2); eGFR > 60.00
[2023-08-23] MEDS: OFIRMEV 100 IV (02:34)
[2023-08-23] MEDS: NSS 1000 IV ×2 (02:37→05:39)
[2023-08-23 02:40] LABS: NT-proBNP 332 pg/ml; Troponin I 0.013 ng/ml
[2023-08-23] MEDS: ZOSYN 100 IV (02:45)
[2023-08-23] MEDS: LEVOPHED 250 IV (02:59)
[2023-08-23 03:34] LABS: Lactic Acid 4.4 mmol/L (0.7-2.0)
--- NOTE | 2023-08-23 04:16 | HPS.HSE ---
Family Physician
-
Family Physician: NOT KNOW UNKNOWN - PT DOES
Chief Complaint
-
SOB
History of Present Illness
Patient is a 73y M with PMH significant for head and neck cancer, ASCVD and chronic PEG-dependent dysphagia who presents to ED for evaluation of cough and dyspnea. History obtained from patient and his at the bedside. Patient states that
he was feeing poorly early today consisting of weakness and nausea. He left work early to come home. Before he could get into the house, he was incontinent of bowel and bladder - which is quite unusual for him. Patient was able to get a shower;
however, his symptoms of nausea persisted. He denies any abdominal pain. He had no further episodes of diarrhea or urinary incontinence.
Patient was resting in bed when he had urge to vomit. He was unable to sit upright quickly and he had emesis in supine position.
Shortly following this episode, his noted that he appeared to be laboring to breath with hacking, poorly productive cough.
This prompted them to present to the ED for further evaluation.
On initial evaluation in the ED, patient was hypoxemic and in moderate / severe distress.
He has since significantly improved and is currently on NRB mask with saturations in the high 90s and feels markedly improved from admission.
Medical History
Past Medical History
Past Medical History: Reports Other
Additional Past Medical History:
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
GERD
Hypertension
Dysphagia
Hypothyroidism
ASCVD (CAD, Carotid Disease) �
Paroxysmal Atrial Fibrillation
Pneumothorax
Bilateral Pleural Effusions
Meningitis / Encephalitis
Polymyalgia Rheumatica
Past Surgical History: Reports Other
Additional Past Surgical History:
Wide Excision of Head and Neck Cancer
CABG x 3
PEG Placement
Social History
Tobacco: Non-smoker
Alcohol: Occasional
Drug: None
Family History
Family History: Not pertinent
Allergies / Home Medications
Allergies reflects when Allergies were last updated in [employer].
Home Medications with original date entered in [employer]
Allergy/Medication List:
Allergies
Allergy/AdvReac Type Severity Reaction Status Date / Time
lobster Allergy SEVERE Verified 08/23/23 01:55
STOMACH
PAIN
venom-honey bee Allergy BEE Verified 08/23/23 01:55
STING-ANAPHYLAXIS
Home Medications
lactose-reduced food with fiber 0.06 gram-1.5 kcal/mL oral liquid (Jevity 1.5 Jasson) 2 ea feeding tube TID nutrition drink 09/25/22
acetaminophen 325 mg/10.15 mL oral suspension 325 mg (10.15 mL) feeding tube Q4HPRN PRN mild pain #304.5 mL 10/18/22
aspirin 81 mg tablet,delayed release 81 mg feeding tube DAILY Blood Clot Prevention/Tx #30 tabs 10/18/22
cholecalciferol (vitamin D3) 125 mcg (5,000 unit) tablet (Vitamin D3) 10,000 unit feeding tube [id number] Supplement #30 tabs 10/18/22
clopidogrel 75 mg tablet 75 mg feeding tube DAILY #30 tabs 10/18/22
metoprolol tartrate 25 mg tablet 12.5 mg (1/2 x 25 mg) feeding tube Q12 #60 tabs 10/18/22
Culturelle Kids 2 packet feeding tube DAILY Gastrointestinal Issue 03/14/23
levothyroxine 25 mcg tablet 50 mcg PO DAILY Thyroid 03/14/23
prednisone 5 mg/5 mL oral solution 15 mg feeding tube DAILY 08/23/23
Review of Systems
-
History Source: Patient and Family
A 12 point ROS was completed and negative except as noted: Yes
Constitutional: Reports Fatigue and Chills; Denies Fever
EENT: Denies Sore Throat
Respiratory: Reports Cough and Trouble Breathing; Denies Hemoptysis
Cardiac: Denies Chest Pain, Diaphoresis or Palpitations
Abdomen/GI: Reports Nausea, Vomiting and Diarrhea; Denies Abdominal Pain
: Denies Dysuria, Frequency or Flank Pain
Neurological: Reports Dizzy; Denies Headache
Psych: Denies Depression or Anxiety
Physical Exam
Vital Signs
Vital Signs
Temp Pulse Resp BP Pulse Ox
97.9 F 89 30 106/74 98
08/23/23 01:27 08/23/23 04:01 08/23/23 04:01 08/23/23 04:00 08/23/23 03:50
Physical Exam
General: Other (73y M in no acute distress at present.)
HEENT: Other (Dry MM. Slurred speech chronically s/p XRT.)
Respiratory: Other (Coarse BS bilaterally. No wheezing.)
Cardiac: S1/S2 and Regular Rhythm; No Murmur
GI: Soft, Non Tender, Non Distended, Normal Bowel Sounds and Other (PEG site intact.)
Musculoskeletal: No Clubbing, No Cyanosis and No Edema
Neuro: AO x 3
Laboratory Results
-
08/23/23 01:53
08/23/23 01:53
Laboratory Results
PT 13.4 Sec (11.4-14.6) 08/23/23 01:53
INR 1.02 08/23/23 01:53
pH 7.39 (7.35-7.45) 08/23/23 01:53
pCO2 50 mmHg (35-48) H 08/23/23 01:53
pO2 76 mmHg (83-108) L 08/23/23 01:53
HCO3 30.3 mmol/L (21-28) H 08/23/23 01:53
Lactic Acid 4.4 mmol/L (0.7-2.0) H* 08/23/23 01:53
Total Bilirubin 1.2 mg/dl (0.2-1.3) 08/23/23 01:53
AST 31 U/L (17-59) 08/23/23 01:53
ALT 26 U/L (0-50) 08/23/23 01:53
Alkaline Phosphatase 66 U/L (38-126) 08/23/23 01:53
Troponin I 0.013 ng/ml 08/23/23 01:53
Impression/Plan
-
A/P: Patient is a 73y M with PMH significant for head and neck cancer with chronic dysphagia / dysarthria, ASCVD and A-Fib who presents to ED complaining of SOB.
Aspiration Pneumonitis / Pneumonia
Acute Hypoxemic Respiratory Failure secondary to the above
- Admit for further evaluation and treatment.
- Symptoms significantly improved from admission.
- CXR with bibasilar infiltrates c/w aspiration +/- pneumonia.
- Continue IV abx for now.
- Supportive care incuding O2 support, nebs, etc.
- Aspiration precautions.
- Speech eval (though patient is NPO at baseline / PEG dependent).
Septic Shock
Lactic Acidosis
- Patient with hypotension refractory to fluids / requiring pressor support in the ED.
- Etiology of sepsis is not entirely clear as patient was feeling poorly prior to his emesis episode which resulted in aspiration / respiratory distress.
- Need UA - straight cath if necessary.
- Follow for further diarrhea and check stool cultures if this recurs
- Empiric abx for now and follow-up all culture data.
- Continue supportive care including IVFs, pressor support, etc and wean as able.
- Short term IV hydrocortisone as well given hypotension / pressor dependence and chronic steroid use.
Polymyalgia Rheumatica
- Patient on chronic prednisone and recent increase from 7.5mg to 15mg daily (about 3 weeks ago).
- Stress dose steroids acutely as noted above.
- Resume usual enteral dosing once BP stabilized / clinically improved.
ASCVD
- Stable.
- Continue usual CV med regimen.
Hypothyroidism
- Stable. Continue T4 supplementation.
Head and Neck Cancer
Chronic Dysphagia
Chronic Dysarthria
- Stable. PEG -dependent for meds and meals.
- Patient states that he does take small sips of water occasionally.
- Continue meds via tube.
DVT Prophylaxis: Lovenox
Code Status: Full
--- NOTE | 2023-08-23 05:55 | W.PN.UPDATE ---
Update Note
Progress Note Update
Discussed with patient at bedside code status, patient would like code status to be updated to DNR/DNI.
--- NOTE | 2023-08-23 05:56 | PTCARENOTE ---
Rec'd care of patient from ED. Patient alert and oriented. Slurred speech. NSR with BBB on tele monitor. Levophed infusing. Titrating for MAP >65. IVFs initiated through peripheral INT. JOSE C Reynolds at bedside. Patient weaned from NRB to 4L
nc. Pulse ox 95%. VSS. Plan of care and code status discussed. Patient verbalizing he would like to be a DNR. Full assessment and care as charted on worklist.
--- NOTE | 2023-08-23 05:57 | W.PN.SEPSIS ---
Sepsis
Vital Signs
Temp Pulse Resp BP Pulse Ox
98.7 F 85 28 126/84 94
08/23/23 05:13 08/23/23 05:15 08/23/23 05:15 08/23/23 05:15 08/23/23 05:41
Physical Exam
Physical Exam:
A focused exam was performed after fluid resuscitation.
Capillary Refill
Bilateral Upper Extremity:
Scotty Time: Less than 3 sec
Bilateral Lower Extremity:
Scotty Time: Less than 3 sec
Pulse Evaluation
Bilateral Radial:
Pulse Evaluation: Present
Bilateral Dorsalis Pedis:
Pulse Evaluation: Present
[2023-08-23 06:17] LABS: Mean Corp Hgb Conc. 34.9 g/dL (33.0-37.0); Mean Corpuscular Hgb 32.5 pg (27.0-31.0); Mean Corpuscular Volume 93.3 fL (80.0-94.0); Mean Platelet Volume 10.9 fL (7.4-10.4); Platelet Count 168 10^3/uL (130-400); Red Blood Cell Count 4.61 10^6/uL (4.70-6.10); Red Cell Dist. Width 14.7 % (11.5-14.5); White Blood Cell Count 12.1 10^3/uL (4.8-10.8)
[2023-08-23] MEDS: SYNTHROID 50 MCG TUBE (06:22)
[2023-08-23 06:35] LABS: Lactic Acid 2.5 mmol/L (0.7-2.0)
[2023-08-23 06:39] LABS: ALT (SGPT) 21 U/L (0-50); AST (SGOT) 28 U/L (17-59); Albumin 3.9 g/dl (3.5-5.0); Alkaline Phosphatase 58 U/L (38-126); Blood Urea Nitrogen 27 mg/dl (9-20); Calcium 9.7 mg/dl (8.4-10.2); Carbon Dioxide 30 mmol/L (22-30); Chloride 102 mmol/L (98-107); Direct Bilirubin 0.2 mg/dl (0.0-0.4); Estimated Creatinine Clearance 94 ml/min; Glucose 120 mg/dl (70-99); Magnesium 1.9 mg/dl (1.6-2.3); Phosphorus 2.4 mg/dl (2.5-4.5); Potassium 3.9 mmol/L (3.5-5.1); Sodium 138 mmol/L (135-145); Total Bilirubin 2.7 mg/dl (0.2-1.3); Total Protein 6.1 g/dl (6.3-8.2); eGFR > 60.00
[2023-08-23 06:48] LABS: Urine Albumin Negative (Neg - Trace); Urine Bilirubin Negative (Negative); Urine Character Clear (Clear); Urine Color Yellow; Urine Glucose Negative (Negative); Urine Ketone Negative (Negative); Urine Leukocyte Negative (Negative); Urine Nitrite Negative (Negative); Urine Occult Blood Negative (Negative); Urine Specific Gravity 1.015 (<1.030); Urine Urobilinogen Negative (Neg - 1+); Urine pH 6.5 (5.0-9.0)
--- NOTE | 2023-08-23 07:16 | CON.INTV ---
Consultation
Consultation Request
Date/Time Consultation Requested: 08/23/23
Date/Time Consultation Performed: 08/23/23
Performing Provider: Melany
Reason for Consultation: Critical Care
Medical History
-
History of Present Illness:
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
A-fib, history of pneumothorax presenting to ER for cough and dyspnea, with increasing weakness and nausea/vomiting at home. He was then notably short of breath following vomiting episode. On arrival to the ER, patient was hypoxemic and in
moderate to severe stress. He was placed on nonrebreather, chest x-ray demonstrating bilateral patchy infiltrates. He was also notably hypotensive, systolic in the 60s. He is placed on Levophed. He is admitted to ICU for aspiration pneumonia with
severe hypoxemia and septic shock.
Past Medical History
Past Medical History: Other (see below)
Social History
Tobacco: Non-smoker
Alcohol: None
Drug: None
Family History
Family History: Reviewed & Not Pertinent
Allergies / Home Medications
Allergies
Allergy/AdvReac Type Severity Reaction Status Date / Time
lobster Allergy SEVERE Verified 08/23/23 01:55
STOMACH
PAIN
venom-honey bee Allergy BEE Verified 08/23/23 01:55
STING-ANAPHYLAXIS
Home Medications
�Medication �Instructions �Recorded �Confirmed �Last Taken �Type
lactose-reduced food with fiber 2 ea feeding tube TID nutrition 09/25/22 08/23/23 Unknown History
0.06 gram-1.5 kcal/mL oral liquid drink
(Jevity 1.5 Jasson)
acetaminophen 325 mg/10.15 mL oral 325 mg (10.15 mL) feeding tube 10/18/22 08/23/23 Unknown Rx
suspension Q4HPRN PRN mild pain #304.5 mL
aspirin 81 mg tablet,delayed 81 mg feeding tube DAILY Blood 10/18/22 08/23/23 10/20/22 Rx
release Clot Prevention/Tx #30 tabs
cholecalciferol (vitamin D3) 125 10,000 unit feeding tube 10/18/22 08/23/23 1 Day Ago Rx
mcg (5,000 unit) tablet (Vitamin MOTUWETHFR Supplement #30 tabs ~10/19/22
D3)
clopidogrel 75 mg tablet 75 mg feeding tube DAILY #30 tabs 10/18/22 08/23/23 10/20/22 Rx
metoprolol tartrate 25 mg tablet 12.5 mg (1/2 x 25 mg) feeding tube 10/18/22 08/23/23 10/20/22 Rx
Q12 #60 tabs
Jimbo Petersen 2 packet feeding tube DAILY 03/14/23 08/23/23 Unknown History
Gastrointestinal Issue
levothyroxine 25 mcg tablet 50 mcg PO DAILY Thyroid 03/14/23 08/23/23 Unknown History
prednisone 5 mg/5 mL oral solution 15 mg feeding tube DAILY 08/23/23 08/23/23 Unknown History
Review of Systems
-
History Source: Patient
All other systems: Negative unless noted
Vitals / Labs / Diagnostic Testing
Vital Signs
Temp Pulse Resp BP Pulse Ox
98.7 F 86 25 99/73 96
08/23/23 05:13 08/23/23 06:15 08/23/23 06:15 08/23/23 06:15 08/23/23 06:15
Lab Data
08/23/23 06:05
08/23/23 06:05
Laboratory Results
08/23/23
01:53
PT 13.4
INR 1.02
pH 7.39
pCO2 50 H
pO2 76 L
HCO3 30.3 H
O2 Delivery Level Nrb
Diagnostic Testing:
Physical Exam
-
HEENT: Normocephalic, Anicteric and Other (dry MM, garbled speech)
Cardiovascular: S1/S2 and Regular Rhythm
Respiratory: Rales and Non-Labored Respirations
GI: Soft, Non Distended, Non Tender and Other (PEG)
Neurology: Awake and Alert
Skin: Warm and Dry
General: Comfortable and Other (NAD, deconditioned)
Assessment
-
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
A-fib, history of pneumothorax presenting to ER for cough and dyspnea, with increasing weakness and nausea/vomiting at home. He was then notably short of breath following vomiting episode. On arrival to the ER, patient was hypoxemic and in
moderate to severe stress. He was placed on nonrebreather, chest x-ray demonstrating bilateral patchy infiltrates. He was also notably hypotensive, systolic in the 60s. He is placed on Levophed. He is admitted to ICU for aspiration pneumonia with
severe hypoxemia and septic shock.
Septic shock on pressors
Acute hypoxic respiratory failure
Aspiration pneumonia, bilateral
History of chronic dysphagia
Nausea/vomiting
Leukocytosis
Chronic hypercarbic respiratory failure, ABG 7.39/50
Lactic acidosis
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
Chronic dysphagia status post PEG
History of Bacterial Colitis
History of Bacterial Pneumonia
Neck surgery (Muscles removed)
CAD s/p CABGx 3, MENSAH-LAD, SVG-OM, SVG-PDA by MPT 10/01/22
History of hospitalization for free intraperitoneal air, pneumatosis, Covid 10/20/22
GERD
Hypertension
Hypothyroidism
Paroxysmal Atrial Fibrillation
Pneumothorax
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
Meningitis / Encephalitis
Polymyalgia Rheumatica
Plan
No current signs of metabolic encephalopathy or MS changes/following commands
Denies pain at this time.
Pain/sedation: PRN
RASS goals: 0
Hemodynamically unstable, requiring pressors.
Requiring pressors: levo@ 3 weaning down
Cardiac history reviewed--PAF, HTN, CAD
Prior ECHO reviewed indicating normal function
Hold home meds
Monitor on telemetry
Oxygen needs: initially on NRB, now on 3L NC
Prior history of lung disease: recurrent aspiration, asbestosis, chronic L pleural effusion
Supplemental O2 as indicated to maintain sats > 89%
CXR/CT reviewed indicating bilateral PNA
Can repeat CXR in next 24-48 hours, or if not improving
NPO, resume TFs via PEG
Group Art Supervisor recommendations--may have been bolus feeding too aggressively/causing aspiration
Reviewed with dietary team for goals at home
Aspiration precautions, HOB > 30 degrees
Speech therapy eval refused
GI prophylaxis if indicated for mechanical ventilation >48 hours, prior history of GERD, stress ulcer formation in the critically ill
Creat at baseline, no history of renal disease
Void trials
Follow urine output, critical I/Os
Replete electrolytes as needed
Fever and increased WBC on presentation, suspect underlying aspiration PNA
Started on empiric antibiotics, can likely continue for 5 days
Cultures sent/pending
Follow fever trend, WBC count
Lactate elevated on admission, continue to trend until <2
CBC stable, no signs of bleeding or coagulopathy.
DVT prophylaxis as assessed based on risk, including mechanical SCDs
Can transfuse if indicated for Hb <7, plt < 10
INR WNL
No prior h/o diabetes
Monitor accuchecks PRN/SS coverage if needed
H/o hypothyroidism, can continue on home synthroid dose
We will follow
Diagnostic Data
Chest X-Ray: 03/14/23- 1. Moderate left pleural effusion. 2. Calcified pleural plaques bilaterally, consistent with asbestos related pleural disease.
CT Scan: AP 03/13/23- 1. No CT evidence for an acute inflammatory process in the abdomen or pelvis.
2. Resolution of pneumatosis/pneumoperitoneum at the hepatic flexure. Stable position of the percutaneous gastrostomy tube.
3. Small left pleural effusion with an adjacent left basilar parenchymal opacity that may represent atelectasis or pneumonia. Volume of pleural fluid has decreased compared to the CT abdomen/pelvis from 10/23/2022. Bilateral calcified pleural plaques
compatible with previous asbestos exposure.
Echo: 04/24/23- Normal biventricular size and systolic function without regional wall motion abnormality. Estimated LVEF 60-65%. Mild aortic regurgitation.
PFT's: 09/28/22 FEV1 1.9L 59%, FVC 2.49L 56%, ratio 76. Post FEV1 2.02L 62% no BS response (suggests restriction)
Reports and relevant images were personally reviewed.
-----
Critical Care time 61 mins -- The patient is admitted for acute critical illness for the treatment of vital organ failure and/or prevention of further life-threatening conditions. Total care includes time spent in review of history, physical exam,
medications, hemodynamic/ventilator parameters, laboratory data, imaging and discussion with house staff, pharmacy, respiratory therapy, synthetic department supervisor, and nursing.
[2023-08-23] MEDS: NSS (PRESERVATIVE FREE) 10 ML IV (08:21)
[2023-08-23] MEDS: TYLENOL ORAL SOLUTION 650 MG TUBE ×3 (08:21→17:02)
[2023-08-23] MEDS: SOLU-CORTEF 50 MG IV (08:21)
[2023-08-23] MEDS: LOW STRENGTH ASPIRIN 81 MG TUBE (08:21)
[2023-08-23] MEDS: PLAVIX 75 MG TUBE (08:21)
[2023-08-23] MEDS: PROTONIX IV 40 MG IV (08:22)
--- NOTE | 2023-08-23 08:40 | W.PN.HOSP.TC ---
Today's Communication/Plan
-
PT/OT
Resume tube feeds
Nutrition consult
Assessment / Plan
Assessment / Plan
Gen-AAOx3, NAD, appears chronically ill
HEENT-NC, AT, anicteric, clear oral mm
Neck-supple
CV-reg, no M, +S1/S2
Lungs-decreased breath sounds anteriorly
Abd-soft, NT, ND
Ext-no edema
Musculoskeletal-no cyanosis, clubbing
Skin-warm and dry
Neuro-grossly non-focal
Psych-calm, cooperative
Septic shock -presumably due to aspiration event. Weaning down Levophed, currently at 4 mcg. Still hypotensive this morning but mentating fine. Lactic acidosis improving.
Currently in ICU, consult ux researcher.
Acute hypoxic/hypercapnic respiratory failure -due to aspiration after nausea and vomiting. Chest x-ray reviewed by myself, bilateral lower lobe infiltrates noted. Oxygenation improving, now on 3 L nasal cannula. Wean down as able. Does not use
oxygen at home.
Aspiration pneumonia versus pneumonitis -currently on empiric IV Zosyn.
Hypophosphatemia -will replete.
Steroid-dependent polymyalgia rheumatica -currently on stress dose steroids.
CAD/CABG -stable. Continue aspirin, Plavix.
Hypothyroidism -on chronic levothyroxine.
History of head and neck cancer -s/p wide excision, chemo, radiation 27 years ago.
Essential hypertension -hold meds for shock.
Paroxysmal atrial fibrillation -transient episode after CABG according to patient. Not on anticoagulation. Followed by cardiology, Dr. Nieto.
GERD
History of pneumothorax
Chronic dysphagia -PEG tube dependent nutrition. Gets boluses of Jevity 1.5, 6 cans daily. Start trickle feeds continuously in the hospital, advance to goal. Consult nutrition.
Chronic dysarthria -due to head and neck cancer history, associated treatment.
DNR
PT/OT
Anticipated Discharge: > 48 hours
Subjective/Interval History
-
Date of Service: August 23, 2023
Patient seen and examined. Feeling better than last night. No complaints.
Objective Data
-
Labs:
Laboratory Results
08/23/23 08/23/23 08/23/23
01:53 06:05 06:41
WBC 8.7 12.1 H
Hgb 17.6 15.0
Hct 53.0 H 43.0
Plt Count 187 168
PT 13.4
INR 1.02
APTT Pending
HCO3 30.3 H
Sodium 144 138
Potassium 4.1 3.9
Chloride 97 L 102
Carbon Dioxide 34 H 30
BUN 28 H 27 H
Creatinine 0.6 L 0.7
Glucose 108 H 120 H
Calcium 10.8 H 9.7
Total Bilirubin 1.2 2.7 H D
AST 31 28
ALT 26 21
Alkaline Phosphatase 66 58
Vital Signs:
Vital Signs
Temp Pulse Resp BP Pulse Ox
98.6 F 88 20 99/73 98
08/23/23 07:29 08/23/23 07:50 08/23/23 07:50 08/23/23 06:15 08/23/23 07:50
Review of Systems
-
History Source: Patient
All other systems: Reviewed and negative
--- NOTE | 2023-08-23 09:02 | PTCARENOTE ---
report received, assessments per work list. patient c/o back pain and headache. medicated with tylenol per patient request. monitor nsr with bbb. levophed titration per work list. peg clamped, abdomen soft. condom cath in place, voiding yellow
urine. Hosptialsit at bedside, orders received. call trujillo in reach
[2023-08-23] MEDS: ZOSYN 50 IV ×3 (10:05→21:11)
--- NOTE | 2023-08-23 12:31 | PTCARENOTE ---
patient reassessed. remains oob to chair. levophed weaning, room air pulse oximeter 94
--- NOTE | 2023-08-23 12:57 | CM ---
CM following re: discharge planning.
Discussed in rounds, reviewed pt's chart, met with pt.
Pt is a 73 year old male, admitted with primary dx of Septic shock -presumably due to aspiration event.Pt currently requires 4L NO of O2, has no home oxygen.
Pt reports he lives with spouse 2SH, 1 steps to enter, has 2 supportive children. 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 known to [facility]. No SNF history. Was at [facility] last year.
PT and OT evaluations noted - home PT vs SNF recommended. Pt is aware, stated he will prefer [facility] and he might think of SNF if he feels he needs it.
A referral to [facility] made.
PCP: Jigar Chopra.
Pharmacy: [facility].
D/C plan: home with [facility] vs SNF
CM will follow with discharge plan updates as hospitalization progresses
[2023-08-23] MEDS: NSS IV (13:44)
--- NOTE | 2023-08-23 13:59 | PTCARENOTE ---
Addendum entered by Cami Batres RN 08/23/23 15:27:
levophed resumed for hypotension
Original Note:
levophed weaned to off, fluids capped per orders. tolerating tube feeds. on room air. assisted back to bed, tylenol given for discomfort. call trujillo in reach
[2023-08-23] MEDS: NEUTRA-PHOS POWDER PACKET 250 MG TUBE ×2 (17:02→21:10)
[2023-08-23] MEDS: LOVENOX 40 MG SC (17:02)
--- NOTE | 2023-08-23 20:00 | PTCARENOTE ---
Resumed care of pt sitting up in bed AAOx3. Pt with slurred garbled speech, which is baseline. HR in the 70's in NSR with BBB on the monitor. POX 93% on RA. Lungs dec t/o. Productive cough, pt using Yankour when needed. + bowel. Peg tube in place
infusing Jevity 1.5 @30ml/hr, 25ml flush. Goal 60ml/hr. Pt ambulatory to bathroom with assistance with walker. Pt moved bowels. Brushed teeth. partial denture care performed. Pt settled back to bed. #30cc placed draining yellow urine. palpable
peripheral pulses present. Pale skin, intact. Pt refusing pillow under heels. Pt refusing knee high seq. Pt able to move around in bed and boost self as needed. Pt reports head pain and low back pain unrelieved by Tylenol. Rodolfo WOODALL notified.
Order obtained. Pain medication administered as ordered. call trujillo in reach. Will continue to monitor.
[2023-08-23] MEDS: ROXICODONE 5 MG TUBE (21:10)
[2023-08-24] VITALS (23 sets, daily range): BP systolic 89–168; BP diastolic 53–110; BMI 22.0
--- NOTE | 2023-08-24 | PTCARENOTE ---
PT sleeping comfortably. No issues to report. Vital signs stable. No changes in assessment noted at this time. Will continue to monitor.
--- NOTE | 2023-08-24 04:00 | PTCARENOTE ---
Pt complaining of headache, 7/10, Pt reports low back pain 3/10, PRN pain medication administered as ordered. TF increased to 40ml/hr per protocol. No other changes in assessment noted at this time. Lab work obtained. POX 94% on RA. Will continue to
monitor.
[2023-08-24] MEDS: SYNTHROID 50 MCG TUBE (04:06)
[2023-08-24] MEDS: ROXICODONE 5 MG TUBE ×2 (04:06→20:58)
[2023-08-24] MEDS: ZOSYN 50 IV ×4 (04:06→20:59)
[2023-08-24 04:27] LABS: % Basophils 0.1 % (0-2); % Immature Granulocytes 0.2 % (0-0.5); % Lymphocytes 5.7 % (20.5-51.1); % Monocytes 6.2 % (1.7-9.3); % Neutrophils 87.8 % (42.2-75.2); Absolute Lymphocytes 0.7 10^3/uL (1.2-3.4); Absolute Monocytes 0.8 10^3/uL (0.1-0.6); Absolute Neutrophils 10.8 10^3/uL (1.4-6.5); Hematocrit 37.3 % (39.0-52.0); Hemoglobin 12.7 g/dL (13.0-18.0); Mean Corpuscular Hgb 32.8 pg (27.0-31.0); Mean Corpuscular Volume 96.4 fL (80.0-94.0); Mean Platelet Volume 10.8 fL (7.4-10.4); Nucleated Red Blood Cells % 0 % (-); Platelet Count 124 10^3/uL (130-400); Red Blood Cell Count 3.87 10^6/uL (4.70-6.10); Red Cell Dist. Width 15.1 % (11.5-14.5); White Blood Cell Count 12.3 10^3/uL (4.8-10.8)
[2023-08-24 04:46] LABS: Lactic Acid 2.3 mmol/L (0.7-2.0)
[2023-08-24 04:50] LABS: Blood Urea Nitrogen 20 mg/dl (9-20); Calcium 9.3 mg/dl (8.4-10.2); Carbon Dioxide 29 mmol/L (22-30); Chloride 104 mmol/L (98-107); Estimated Creatinine Clearance 111 ml/min; Glucose 106 mg/dl (70-99); Phosphorus 2.9 mg/dl (2.5-4.5); Potassium 3.9 mmol/L (3.5-5.1); Sodium 139 mmol/L (135-145); eGFR > 60.00
--- NOTE | 2023-08-24 07:08 | W.PN.INTV ---
Today's Communication / Plan
Recommendations
Off pressors, add PRN midodrine for SBP <90
Otherwise doing well on abx, stable on RA
Repeat CXR in AM
PT/OT today, encourage OOB
Dietary to follow up TF regiment at home to avoid further aspiration
Can likely transfer to floors per team
Assessment
-
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
A-fib, history of pneumothorax presenting to ER for cough and dyspnea, with increasing weakness and nausea/vomiting at home. He was then notably short of breath following vomiting episode. On arrival to the ER, patient was hypoxemic and in
moderate to severe stress. He was placed on nonrebreather, chest x-ray demonstrating bilateral patchy infiltrates. He was also notably hypotensive, systolic in the 60s. He is placed on Levophed. He is admitted to ICU for aspiration pneumonia with
severe hypoxemia and septic shock.
Septic shock on pressors
Acute hypoxic respiratory failure
Aspiration pneumonia, bilateral
History of chronic dysphagia
Nausea/vomiting
Leukocytosis
Chronic hypercarbic respiratory failure, ABG 7.39/50
Lactic acidosis
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
Chronic dysphagia status post PEG
History of Bacterial Colitis
History of Bacterial Pneumonia
Neck surgery (Muscles removed)
CAD s/p CABGx 3, MENSAH-LAD, SVG-OM, SVG-PDA by MPT 10/01/22
History of hospitalization for free intraperitoneal air, pneumatosis, Covid 10/20/22
GERD
Hypertension
Hypothyroidism
Paroxysmal Atrial Fibrillation
Pneumothorax
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
Meningitis / Encephalitis
Polymyalgia Rheumatica
Plan
No current signs of metabolic encephalopathy or MS changes/following commands
Denies pain at this time.
Pain/sedation: PRN
RASS goals: 0
Hemodynamically stable, off pressors.
Requiring pressors: levo weaned to off, add PRN midodrine for any SBP<90
Cardiac history reviewed--PAF, HTN, CAD
Prior ECHO reviewed indicating normal function
Hold home meds, resume when improved
Monitor on telemetry
Oxygen needs: initially on NRB, now on RA
Prior history of lung disease: recurrent aspiration, asbestosis, chronic L pleural effusion
Supplemental O2 as indicated to maintain sats > 89%
CXR/CT reviewed indicating bilateral PNA
Can repeat CXR in next 24-48 hours, or if not improving
NPO, resume TFs via PEG
Registered Nurse Cardiac Telemetry recommendations--may have been bolus feeding too aggressively/causing aspiration
Reviewed with dietary team for goals at home
Aspiration precautions, HOB > 30 degrees
Speech therapy eval refused
GI prophylaxis if indicated for mechanical ventilation >48 hours, prior history of GERD, stress ulcer formation in the critically ill
Creat at baseline, no history of renal disease
Void trials
Follow urine output, critical I/Os
Replete electrolytes as needed
Fever and increased WBC on presentation, suspect underlying aspiration PNA
Started on empiric antibiotics, can likely continue for 5 days
Cultures sent/pending
Follow fever trend, WBC count
Lactate elevated on admission, continue to trend until <2
CBC stable, no signs of bleeding or coagulopathy.
DVT prophylaxis as assessed based on risk, including mechanical SCDs
Can transfuse if indicated for Hb <7, plt < 10
INR WNL
No prior h/o diabetes
Monitor accuchecks PRN/SS coverage if needed
H/o hypothyroidism, can continue on home synthroid dose
Diagnostic Data
Chest X-Ray: 03/14/23- 1. Moderate left pleural effusion. 2. Calcified pleural plaques bilaterally, consistent with asbestos related pleural disease.
CT Scan: AP 03/13/23- 1. No CT evidence for an acute inflammatory process in the abdomen or pelvis.
2. Resolution of pneumatosis/pneumoperitoneum at the hepatic flexure. Stable position of the percutaneous gastrostomy tube.
3. Small left pleural effusion with an adjacent left basilar parenchymal opacity that may represent atelectasis or pneumonia. Volume of pleural fluid has decreased compared to the CT abdomen/pelvis from 10/23/2022. Bilateral calcified pleural plaques
compatible with previous asbestos exposure.
Echo: 04/24/23- Normal biventricular size and systolic function without regional wall motion abnormality. Estimated LVEF 60-65%. Mild aortic regurgitation.
PFT's: 09/28/22 FEV1 1.9L 59%, FVC 2.49L 56%, ratio 76. Post FEV1 2.02L 62% no BS response (suggests restriction)
Reports and relevant images were personally reviewed.
-----
Critical Care time 31 mins -- The patient is admitted for acute critical illness for the treatment of vital organ failure and/or prevention of further life-threatening conditions. Total care includes time spent in review of history, physical exam,
medications, hemodynamic/ventilator parameters, laboratory data, imaging and discussion with house staff, pharmacy, respiratory therapy, sanitation superintendent, and nursing.
Subjective Dataa
Subjective Data
Date of Service:
Date of Service: August 24, 2023
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
Subjective:
Doing well today, off pressors
BP soft but he is mentating well
Abx continued
Objective Data
Data Reviewed
Vital Signs / I&O / Oxygen:
Vital Signs
Temp Pulse Resp BP Pulse Ox
97.0 F 82 25 136/81 91
08/24/23 03:17 08/24/23 03:15 08/24/23 03:15 08/24/23 03:00 08/23/23 21:39
Intake and Output
08/23/23 08/24/23 08/25/23
06:59 06:59 06:59
Intake Total 2102.7 / 2102.7
Output Total 1400 / 1400
Balance 702.7 / 702.7
SaO2 91
Nasal Cannula flow liters per 1
minute
Physical Exam
General: Comfortable, Other (deconditioned appearing) and Other (NAD)
HEENT: Normocephalic, Sinus Tenderness and Other (dry MM, garbled speech )
Cardiovascular: S1-S2 and Regular Rhythm
Respiratory: Crackles and Non-Labored Respirations
GI: Soft, Non Distended, Non Tender and Feeding Tube
Neurology: Awake, Alert, Oriented, AO x 3 and No Motor Deficits
Skin: Warm, Dry and Good Color
Labs/Micro/Reports
Lab Data
08/24/23 04:15
08/24/23 04:15
Laboratory Results
08/23/23
06:41
APTT Cancelled
Microbiology
08/23/23 01:53 Blood/Venous Blood Culture - Preliminary
No Growth in 24 hours- Final report to follow
[2023-08-24] MEDS: PROTONIX IV 40 MG IV (07:30)
[2023-08-24] MEDS: NSS (PRESERVATIVE FREE) 10 ML IV (07:30)
[2023-08-24] MEDS: PLAVIX 75 MG TUBE (07:31)
[2023-08-24] MEDS: DELTASONE 10 MG TUBE (07:31)
[2023-08-24] MEDS: LOW STRENGTH ASPIRIN 81 MG TUBE (07:31)
--- NOTE | 2023-08-24 07:39 | W.PN.HOSP.TC ---
Today's Communication/Plan
-
PT/OT
Assessment / Plan
Assessment / Plan
Gen-AAOx3, NAD, appears chronically ill
HEENT-NC, AT, anicteric, clear oral mm
Neck-supple
CV-reg, no M, +S1/S2
Lungs-decreased breath sounds anteriorly
Abd-soft, NT, ND
Ext-no edema
Musculoskeletal-no cyanosis, clubbing
Skin-warm and dry
Neuro-grossly non-focal
Psych-calm, cooperative
Septic shock -presumably due to aspiration event. Weaned Levophed off, still relatively hypotension but MAP 70. Lactic acidosis improving.
Currently in ICU, consult shop worker.
Acute hypoxic/hypercapnic respiratory failure -due to aspiration after nausea and vomiting. Chest x-ray reviewed by myself, bilateral lower lobe infiltrates noted. Oxygenation improving, now on room air. Does not use oxygen at home.
Aspiration pneumonia versus pneumonitis -currently on empiric IV Zosyn.
Hypophosphatemia -improved.
Acute thrombocytopenia -124. Doubt HIT. Possibly due to sepsis. Monitor for now.
Steroid-dependent polymyalgia rheumatica -prednisone at home dose of 10 mg daily resumed.
CAD/CABG -stable. Continue aspirin, Plavix.
Hypothyroidism -on chronic levothyroxine.
History of head and neck cancer -s/p wide excision, chemo, radiation 27 years ago.
Essential hypertension -hold meds for shock.
Paroxysmal atrial fibrillation -transient episode after CABG according to patient. Not on anticoagulation. Followed by cardiology, Dr. Nieto.
GERD
History of pneumothorax
Chronic dysphagia -PEG tube dependent nutrition. Gets boluses of Jevity 1.5, 6 cans daily. Continue tube feeds, advance to goal of 60 cc/h.
Chronic dysarthria -due to head and neck cancer history, associated treatment.
DNR
PT/OT
Transfer out of ICU if hemodynamically improved.
Anticipated Discharge: > 48 hours
Subjective/Interval History
-
Date of Service: August 24, 2023
Patient seen and examined. No complaints. Eager to do physical therapy.
Objective Data
-
Labs:
Laboratory Results
08/23/23 08/24/23
06:41 04:15
WBC 12.3 H
Hgb 12.7 L
Hct 37.3 L
Plt Count 124 L D
APTT Cancelled
Sodium 139
Potassium 3.9
Chloride 104
Carbon Dioxide 29
BUN 20
Creatinine 0.5 L
Glucose 106 H
Calcium 9.3
Vital Signs:
Vital Signs
Temp Pulse Resp BP Pulse Ox
97.0 F 82 25 136/81 91
08/24/23 03:17 08/24/23 03:15 08/24/23 03:15 08/24/23 03:00 08/23/23 21:39
I&O
08/23/23 08/24/23 08/25/23
06:59 06:59 06:59
Intake Total 2102.7 / 2102.7
Output Total 1400 / 1400
Balance 702.7 / 702.7
Review of Systems
-
History Source: Patient
All other systems: Reviewed and negative
--- NOTE | 2023-08-24 09:09 | PTCARENOTE ---
Received pt at change of shift, 0700. Complete assessment done and documented. Assessment and plan of care discussed with Dr Hernandes and Dr Sandoval, who were both in room to see pt. Pt with L abd PEG, site cleaned and redressed with drain/split drsg,
jevity 1.5 infusing at 40 ml/hr, with water flushed 25 ml/hr q1 hr. Pt tolerating well. Levophed remains off. HR SR with BBB and PACs noted.
[2023-08-24] MEDS: NEUTRA-PHOS POWDER PACKET 250 MG TUBE ×4 (10:00→20:58)
--- NOTE | 2023-08-24 11:39 | PTCARENOTE ---
Pt OOB with walker to BR, teeth brushed, CHG bath done, and new sz 30 condom cath changed. Pt's to room and updated. Pt sitting comfortably in recliner chair.
--- NOTE | 2023-08-24 13:21 | PTCARENOTE ---
Pt assisted with walker, skin lap bonder, and nurse to walking around entire perimetr of ICU and IMU unit. Pt tolerated well, O2 sat staying at 94%. Pt back to room now, back in chair, VSS. Jevity 1.5, rate increased from 40 to 60 ml/hr with 25 ml
water flush per hr, reaching goal rate.
[2023-08-24] MEDS: LOVENOX 40 MG SC (17:16)
--- NOTE | 2023-08-24 17:30 | PTCARENOTE ---
Pt again assisted with walking in hallway with walker, front desk monitor, and RN. Tolerated well walking x2 around ICU/IMU perimeter. O2 sat =96%. Pt using yankar suction, bringing sm amt mackenzie secretions. Condom cath reapplied, draining mod amt yellow
urine. Pt now backk to bed, VSS.
[2023-08-25] VITALS (14 sets, daily range): BP systolic 95–152; BP diastolic 72–95; BMI 21.9
[2023-08-25] MEDS: ROXICODONE 5 MG TUBE ×3 (02:49→22:09)
[2023-08-25] MEDS: ZOSYN 50 IV ×4 (03:05→22:08)
[2023-08-25] MEDS: SYNTHROID 50 MCG TUBE (05:20)
[2023-08-25 05:49] LABS: % Basophils 0.2 % (0-2); % Eosinophils 0.3 % (0-6); % Immature Granulocytes 0.5 % (0-0.5); % Lymphocytes 8.8 % (20.5-51.1); % Monocytes 6.9 % (1.7-9.3); % Neutrophils 83.3 % (42.2-75.2); Absolute Immature Granulocytes 0.1 10^3/uL (0-0.05); Absolute Monocytes 0.7 10^3/uL (0.1-0.6); Hematocrit 41.7 % (39.0-52.0); Hemoglobin 14.3 g/dL (13.0-18.0); Mean Corp Hgb Conc. 34.3 g/dL (33.0-37.0); Mean Corpuscular Hgb 32.5 pg (27.0-31.0); Mean Corpuscular Volume 94.8 fL (80.0-94.0); Mean Platelet Volume 11.3 fL (7.4-10.4); Nucleated Red Blood Cells % 0 % (-); Platelet Count 133 10^3/uL (130-400); Red Cell Dist. Width 15.1 % (11.5-14.5); White Blood Cell Count 10.8 10^3/uL (4.8-10.8)
[2023-08-25 06:01] LABS: Phosphorus 3.6 mg/dl (2.5-4.5)
--- NOTE | 2023-08-25 07:11 | W.PN.INTV ---
Today's Communication / Plan
Recommendations
Stable on RA, continue TFs via PEG
Repeat CXR showing chronic L sided effusion, stable infiltrates
Can consider thora on L if symptomatic, otherwise continue abx and can follow as OP
PT/OT evals
Assessment
-
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
A-fib, history of pneumothorax presenting to ER for cough and dyspnea, with increasing weakness and nausea/vomiting at home. He was then notably short of breath following vomiting episode. On arrival to the ER, patient was hypoxemic and in
moderate to severe stress. He was placed on nonrebreather, chest x-ray demonstrating bilateral patchy infiltrates. He was also notably hypotensive, systolic in the 60s. He is placed on Levophed. He is admitted to ICU for aspiration pneumonia with
severe hypoxemia and septic shock.
Septic shock on pressors
Acute hypoxic respiratory failure
Aspiration pneumonia, bilateral
History of chronic dysphagia
Nausea/vomiting
Leukocytosis
Chronic hypercarbic respiratory failure, ABG 7.39/50
Lactic acidosis
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
Chronic dysphagia status post PEG
History of Bacterial Colitis
History of Bacterial Pneumonia
Neck surgery (Muscles removed)
CAD s/p CABGx 3, MENSAH-LAD, SVG-OM, SVG-PDA by MPT 10/01/22
History of hospitalization for free intraperitoneal air, pneumatosis, Covid 10/20/22
GERD
Hypertension
Hypothyroidism
Paroxysmal Atrial Fibrillation
Pneumothorax
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
Meningitis / Encephalitis
Polymyalgia Rheumatica
Plan
No current signs of metabolic encephalopathy or MS changes/following commands
Denies pain at this time.
Pain/sedation: PRN
RASS goals: 0
Hemodynamically stable, off pressors.
Requiring pressors: levo weaned to off, add PRN midodrine for any SBP<90
Cardiac history reviewed--PAF, HTN, CAD
Prior ECHO reviewed indicating normal function
Hold home meds, resume when improved
Monitor on telemetry
Oxygen needs: initially on NRB, now on RA
Prior history of lung disease: recurrent aspiration, asbestosis, chronic L pleural effusion
Supplemental O2 as indicated to maintain sats > 89%
CXR/CT reviewed indicating bilateral PNA
Repeat CXR showing chronic L effusion and stable infiltrates
NPO, resume TFs via PEG
Media Center Assistant recommendations--may have been bolus feeding too aggressively/causing aspiration
Reviewed with dietary team for goals at home
Aspiration precautions, HOB > 30 degrees
Speech therapy eval refused
GI prophylaxis if indicated for mechanical ventilation >48 hours, prior history of GERD, stress ulcer formation in the critically ill
Creat at baseline, no history of renal disease
Void trials
Follow urine output, critical I/Os
Replete electrolytes as needed
Fever and increased WBC on presentation, suspect underlying aspiration PNA
Started on empiric antibiotics, can likely continue for 5 days
Cultures sent/pending
Follow fever trend, WBC count
Lactate elevated on admission, continue to trend until <2
CBC stable, no signs of bleeding or coagulopathy.
DVT prophylaxis as assessed based on risk, including mechanical SCDs
Can transfuse if indicated for Hb <7, plt < 10
INR WNL
No prior h/o diabetes
Monitor accuchecks PRN/SS coverage if needed
H/o hypothyroidism, can continue on home synthroid dose
Diagnostic Data
Chest X-Ray: 03/14/23- 1. Moderate left pleural effusion. 2. Calcified pleural plaques bilaterally, consistent with asbestos related pleural disease.
CT Scan: AP 1/31/24- 1. No CT evidence for an acute inflammatory process in the abdomen or pelvis.
2. Resolution of pneumatosis/pneumoperitoneum at the hepatic flexure. Stable position of the percutaneous gastrostomy tube.
3. Small left pleural effusion with an adjacent left basilar parenchymal opacity that may represent atelectasis or pneumonia. Volume of pleural fluid has decreased compared to the CT abdomen/pelvis from 10/23/2022. Bilateral calcified pleural plaques
compatible with previous asbestos exposure.
Echo: 04/24/23- Normal biventricular size and systolic function without regional wall motion abnormality. Estimated LVEF 60-65%. Mild aortic regurgitation.
PFT's: 09/28/22 FEV1 1.9L 59%, FVC 2.49L 56%, ratio 76. Post FEV1 2.02L 62% no BS response (suggests restriction)
Reports and relevant images were personally reviewed.
Subjective Dataa
Subjective Data
Date of Service:
Date of Service: August 25, 2023
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
Subjective:
doing well, no new events
remains on room air
Objective Data
Data Reviewed
Vital Signs / I&O / Oxygen:
Vital Signs
Temp Pulse Resp BP Pulse Ox
98.3 F 80 23 106/80 90
08/25/23 03:00 08/25/23 05:30 08/25/23 05:30 08/25/23 04:00 08/25/23 05:15
Intake and Output
08/24/23 08/25/23 08/26/23
06:59 06:59 06:59
Intake Total 2142.7 / 2182.7 2009
Output Total 1400 / 1400 1375 / 1375
Balance 742.7 / 782.7 635 / 635
SaO2 90
Nasal Cannula flow liters per 1
minute
Physical Exam
General: Comfortable, Other (deconditioned appearing) and Other (NAD)
HEENT: Normocephalic, Sinus Tenderness and Other (dry MM, garbled speech )
Cardiovascular: S1-S2 and Regular Rhythm
Respiratory: Crackles and Non-Labored Respirations
GI: Soft, Non Distended, Non Tender and Feeding Tube
Neurology: Awake, Alert, Oriented, AO x 3 and No Motor Deficits
Skin: Warm, Dry and Good Color
Labs/Micro/Reports
Lab Data
08/25/23 05:36
08/24/23 04:15
Microbiology
08/23/23 01:53 Blood/Venous Blood Culture - Preliminary
No Growth in 48 hours- Final report to follow
--- NOTE | 2023-08-25 07:34 | W.PN.HOSP.TC ---
Today's Communication/Plan
-
Transfer out of ICU
Chest x-ray
PT/OT
Assessment / Plan
Assessment / Plan
Gen-AAOx3, NAD, appears chronically ill
HEENT-NC, AT, anicteric, clear oral mm
Neck-supple
CV-reg, no M, +S1/S2
Lungs-decreased breath sounds anteriorly
Abd-soft, NT, ND
Ext-no edema
Musculoskeletal-no cyanosis, clubbing
Skin-warm and dry
Neuro-grossly non-focal
Psych-calm, cooperative
Septic shock -presumably due to aspiration event. Hemodynamically improved, off vasopressors. Lactic acidosis improving. Midodrine as needed ordered but has not required.
Acute hypoxic/hypercapnic respiratory failure -due to aspiration after nausea and vomiting. Admission chest x-ray reviewed by myself, bilateral lower lobe infiltrates noted. Oxygenation improving, now on room air. Does not use oxygen at home.
For repeat chest x-ray today.
Aspiration pneumonia versus pneumonitis -currently on empiric IV Zosyn.
Hypophosphatemia -improved.
Acute thrombocytopenia - resolved.
Steroid-dependent polymyalgia rheumatica -prednisone at home dose of 10 mg daily resumed.
CAD/CABG -stable. Continue aspirin, Plavix.
Hypothyroidism -on chronic levothyroxine.
History of head and neck cancer -s/p wide excision, chemo, radiation 27 years ago.
Essential hypertension -hold meds for shock.
Paroxysmal atrial fibrillation -transient episode after CABG according to patient. Not on anticoagulation. Followed by cardiology, Dr. Nieto.
GERD
History of pneumothorax
Chronic dysphagia -PEG tube dependent nutrition. Gets boluses of Jevity 1.5, 6 cans daily. Continue tube feeds, advance to goal of 60 cc/h.
Chronic dysarthria -due to head and neck cancer history, associated treatment.
DNR
Dispo -potential discharge Saturday if he remains stable. Home versus SNF.
Anticipated Discharge: Within 24 hours
Subjective/Interval History
-
Date of Service: August 25, 2023
Patient seen and examined. Denies shortness of breath on exertion. Able to ambulate yesterday with physical therapy without dyspnea. Does have productive cough.
Objective Data
-
Labs:
Laboratory Results
08/25/23
05:36
WBC 10.8
Hgb 14.3
Hct 41.7
Plt Count 133
Vital Signs:
Vital Signs
Temp Pulse Resp BP Pulse Ox
98.3 F 80 23 106/80 90
08/25/23 03:00 08/25/23 05:30 08/25/23 05:30 08/25/23 04:00 08/25/23 05:15
I&O
08/24/23 08/25/23 08/26/23
06:59 06:59 06:59
Intake Total 2142.7 / 2182.7 2009
Output Total 1400 / 1400 1375 / 1375
Balance 742.7 / 782.7 635 / 635
Review of Systems
-
History Source: Patient
All other systems: Reviewed and negative
[2023-08-25] MEDS: DELTASONE 10 MG TUBE (08:00)
[2023-08-25] MEDS: LOW STRENGTH ASPIRIN 81 MG TUBE (08:22)
[2023-08-25] MEDS: PLAVIX 75 MG TUBE (08:22)
[2023-08-25] MEDS: NEUTRA-PHOS POWDER PACKET 250 MG TUBE ×4 (08:22→22:08)
[2023-08-25] MEDS: PROTONIX IV 40 MG IV (08:23)
[2023-08-25] MEDS: NSS (PRESERVATIVE FREE) 10 ML IV (08:24)
--- NOTE | 2023-08-25 11:47 | PTCARENOTE ---
0700 patient received in bed. c/o of chronic back pain 10/10 pain scale level. pt DNR. Med-surge level of care. PEG tube Auscultated for placement TF javity at goal 60/augto flush 25/hr. Condom catheter intact, draining clear yellow urine. Transfer
with walker to chair . OOB chair. call trujillo within reach
--- NOTE | 2023-08-25 16:56 | PTCARENOTE ---
patient transfer via w/c to room 406.1 pt's with patient at time of transfer. At time of transfer pt AAO x3 difficult to understand due to chronic speech impairment . Lungs diminished rA 96% VSS . continent of urine Last BM today able to walk
with walker with good balance
[2023-08-25] MEDS: LOVENOX 40 MG SC (17:30)
[2023-08-26] MEDS: ROXICODONE 5 MG TUBE (03:01)
[2023-08-26] MEDS: ZOSYN 50 IV ×2 (03:04→10:08)
[2023-08-26 05:26] LABS: % Basophils 0.2 % (0-2); % Eosinophils 0.7 % (0-6); % Immature Granulocytes 0.3 % (0-0.5); % Lymphocytes 8.5 % (20.5-51.1); % Monocytes 8.6 % (1.7-9.3); % Neutrophils 81.7 % (42.2-75.2); Absolute Eosinophils 0.1 10^3/uL (0-0.7); Absolute Lymphocytes 0.8 10^3/uL (1.2-3.4); Absolute Monocytes 0.8 10^3/uL (0.1-0.6); Absolute Neutrophils 7.4 10^3/uL (1.4-6.5); Hemoglobin 13.4 g/dL (13.0-18.0); Mean Corp Hgb Conc. 34.4 g/dL (33.0-37.0); Mean Corpuscular Hgb 32.9 pg (27.0-31.0); Mean Corpuscular Volume 95.8 fL (80.0-94.0); Mean Platelet Volume 11.2 fL (7.4-10.4); Nucleated Red Blood Cells % 0 % (-); Platelet Count 134 10^3/uL (130-400); Red Blood Cell Count 4.07 10^6/uL (4.70-6.10)
[2023-08-26 05:50] LABS: Phosphorus 3.9 mg/dl (2.5-4.5)
[2023-08-26 06:00] VITALS: BMI 21.4
[2023-08-26] MEDS: SYNTHROID 50 MCG TUBE (06:20)
[2023-08-26 07:24] VITALS: BP 152/95
[2023-08-26] MEDS: PLAVIX 75 MG TUBE (08:39)
[2023-08-26] MEDS: LOW STRENGTH ASPIRIN 81 MG TUBE (08:39)
[2023-08-26] MEDS: DELTASONE 10 MG TUBE (08:39)
[2023-08-26] MEDS: PROTONIX IV 40 MG IV (08:39)
[2023-08-26] MEDS: NSS (PRESERVATIVE FREE) 10 ML IV (08:40)
[2023-08-26] MEDS: NEUTRA-PHOS POWDER PACKET 250 MG TUBE ×2 (08:43→13:06)
--- NOTE | 2023-08-26 12:32 | W.PN.HOSP.TC ---
Addendum entered and electronically signed by Steven Garcia MD 08/26/23 14:50:
Nutrition recommended 1 every 6 hours for his feedings. Did well with PT. dc home today
Time of discharge 38 minutes
Original Note:
Today's Communication/Plan
-
Monitor vital signs see plan
Nutrition following, will let us know if any discharge tube feeding needs to be changed
Continue antibiotics
Daughter updated over the phone
Possible discharge today
metoprolol restarted
Assessment / Plan
Assessment / Plan
Gen-AAOx3, NAD, appears chronically ill
HEENT-NC, AT, anicteric, clear oral mm
Neck-supple
CV-reg, no M, +S1/S2
Lungs-decreased breath sounds anteriorly
Abd-soft, NT, ND
Ext-no edema
Musculoskeletal-no cyanosis, clubbing
Skin-warm and dry
Neuro-grossly non-focal
Psych-calm, cooperative
Septic shock -presumably due to aspiration event. Hemodynamically improved, off vasopressors. Lactic acidosis improving. Midodrine as needed ordered but has not required.
patient declined speech eval
Acute hypoxic/hypercapnic respiratory failure -due to aspiration after nausea and vomiting. Admission chest x-ray reviewed by myself, bilateral lower lobe infiltrates noted. Oxygenation improving, now on room air. Does not use oxygen at home.
For repeat chest x-ray 08/24 improving. Currently patient denies any shortness of breath and is on room air. Spoke to him, will defer to oral at this time
Aspiration pneumonia versus pneumonitis -currently on empiric IV Zosyn. change to PO on dc
Hypophosphatemia -improved.
Acute thrombocytopenia - resolved.
Steroid-dependent polymyalgia rheumatica -prednisone at home dose of 10 mg daily resumed.
CAD/CABG -stable. Continue aspirin, Plavix.
Hypothyroidism -on chronic levothyroxine.
History of head and neck cancer -s/p wide excision, chemo, radiation 27 years ago.
Essential hypertension -blood pressure now high, restart metoprolol
Paroxysmal atrial fibrillation -transient episode after CABG according to patient. Not on anticoagulation. Followed by cardiology, Dr. Nieto.
GERD
History of pneumothorax
Chronic dysphagia -PEG tube dependent nutrition. Gets boluses of Jevity 1.5, 6 cans daily. Continue tube feeds, advance to goal of 60 cc/h.
Chronic dysarthria -due to head and neck cancer history, associated treatment.
DNR
Dispo - Home versus SNF. patient prefer home with VN
Anticipated Discharge: Today
Subjective/Interval History
-
Date of Service: August 26, 2023
denies pain
Objective Data
-
Labs:
Laboratory Results
08/26/23
04:41
WBC 9.0
Hgb 13.4
Hct 39.0
Plt Count 134
Vital Signs:
Vital Signs
Temp Pulse Resp BP Pulse Ox
98.1 F 90 24 152/95 92
08/26/23 07:24 08/26/23 07:24 08/26/23 07:24 08/26/23 07:24 08/26/23 08:30
I&O
08/25/23 08/26/23 08/27/23
06:59 06:59 06:59
Intake Total 2009 440 / 440
Output Total 1375 / 1375 1655 / 1655
Balance 635 / 635 -1215 / -1215
[2023-08-26 14:39] VITALS: BP 150/95; PULSE 102; O2SAT 92
--- NOTE | 2023-08-26 14:49 | W.DCSUMMARY ---
Discharge Summary
Discharge Data
Date of Admission: 08/23/23
Date of Discharge: 08/26/23
-
Pending Results: No
Hospital Course
73-year-old male with past medical history of CAD, CABG, steroid-dependent polymyalgia rheumatica, history of head and neck cancer, hypothyroidism, essential hypertension, paroxysmal atrial fibrillation, history of pneumothorax, GERD, chronic
dysphagia on PEG tube, dysarthria came to the hospital with septic shock secondary to aspiration pneumonia. Patient initially went to ICU and was put on pressors. Over time his symptoms continue to improve and he was weaned off pressors. Speech
therapy was consulted however patient declined speech evaluation. Initially he was on IV antibiotic which was later transitioned to oral antibiotics prior to discharge. He also had acute hypoxic/hypercapnic respiratory failure which was likely
thought was secondary to aspiration which over time continue to improve and he was able to be weaned off oxygen. Repeat chest x-ray on 08/24 was improving. Patient was also seen by nutrition who recommended patient to change his tube feeding
regimen where he will require less bolus doses. Once patient symptoms continue to improve, he was then discharged home with instructions to follow-up with all his physicians outpatient.
Discharge Plan
-
Patient Disposition: Home with Home Care
Discharge Diagnosis/Procedures: Septic shock likely secondary to aspiration Pneumonia
Acute hypoxic/hypercapnic respiratory failure
Condition: Fair
Diet: Other diet
Additional Diets: tube feeding
Activity: As tolerated
Driving Restrictions: As prior to admission
Bathing Restrictions: None
Others Tests: Repeat chest x-ray in 4 weeks with primary care provider
Activity Restrictions/Additional Instructions:
Please use 1 packet of feeding every 6 hours
Referrals:
Amelia Mosley, DO [Active] -
UNKNOWN - PT DOES,NOT KNOW [Family Provider] - in less than 1 week
Prescriptions:
New
pantoprazole [Protonix] [address] for susp in packet
40 mg feeding tube DAILY Qty: 30 0RF
amoxicillin-pot clavulanate 875-125 mg tablet
1 tab feeding tube BID Qty: 10 0RF
Continued
levothyroxine 25 mcg Tablet
50 mcg PO DAILY
Culturelle Kids
2 packet feeding tube DAILY
prednisone 5 mg/5 mL Solution
12.5 mg FEEDING TUBE DAILY
clopidogrel 75 mg tablet
75 mg feeding tube DAILY Qty: 30 0RF
aspirin 81 mg Tablet,Delayed Release (Dr/Ec)
81 mg feeding tube DAILY Qty: 30 0RF
metoprolol tartrate 25 mg Tablet
12.5 mg feeding tube Q12 Qty: 60 2RF
cholecalciferol (vitamin D3) [Vitamin D3] 125 mcg (5,000 unit) Tablet
10,000 unit feeding tube MOTUWETHFR Qty: 30 0RF
acetaminophen 325 mg/10.15 mL Suspension
325 mg feeding tube Q4HPRN PRN (Reason: mild pain) Qty: 304.5 0RF
Changed
Jevity 1.5 Jasson 0.06 gram-1.5 kcal/mL Liquid
See Rx Instructions .ROUTE .COMPLEX Qty: 0 0RF
Rx Instructions:
1 ea via feeding tube 6 times daily
Discharge Orders:
Discharge Patient (As Directed); Ordered 08/26/23
Ordered By: Steven Garcia
Discharge Date and Time
Discharge Date/Time: 08/26/23 17:27
Print Language: PAKISTANI
[2023-08-26 15:40] VITALS: BP 107/75
--- NOTE | 2023-08-26 16:38 | CM ---
Addendum entered by Radha Mack 08/26/23 16:48:
Home Health referral completed via [facility] to [facility].
Original Note:
CM met with Daniele and his at bedside; IA completed
They reside in a [facility] with [facility]
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
Daniele is known to [facility] and agreeable to services after discharge.
Pt has prescription coverage which are filled at [facility] on [address] in [place].
Plan: Discharge to home with [facility]. Pt and provided with phone number to call if they do not receive contact within a few days. They are aware that initial visit could be in 2-3 days and will receive a call from [facility] to schedule the first
visit.
== END 2023-08-26 17:27 | disposition home health service (06) | DRG 871 ==
LOC: 4 EAST ACU 05:02
PROVIDERS: Hospitalist; ADMITTING PHYSICIAN Hospitalist; ATTENDING PHYSICIAN Internal Medicine; CONSULT PHYSICIAN Internal Medicine; EMERGENCY PHYSICIAN Student in an Organized Health Care Education/Training Program
DX: A41.9 Sepsis, unspecified organism (principal); J69.0 Pneumonitis due to inhalation of food and vomit; J96.01 Acute respiratory failure with hypoxia; R65.21 Severe sepsis with septic shock; J96.02 Acute respiratory failure with hypercapnia; E87.20 Acidosis, unspecified; J96.12 Chronic respiratory failure with hypercapnia; M35.3 Polymyalgia rheumatica; I25.10 Atherosclerotic heart disease of native coronary artery without angina pectoris; E03.9 Hypothyroidism, unspecified; I10 Essential (primary) hypertension; I48.0 Paroxysmal atrial fibrillation; K21.9 Gastro-esophageal reflux disease without esophagitis; Z66 Do not resuscitate; D69.6 Thrombocytopenia, unspecified
CPT/HCPCS: 71045; 71046; 80048; 80053; 80076; 81003; 82805; 83605; 83735; 83880; 84100; 84484; 85025; 85027; 85610; 87040; 93005; 94640; 96365; 96366; 96367; 96375; 97116; 97163; 97167; 99291

== ENCOUNTER → 2023-12-05 07:46 | Outpatient (REF) | payer MEDICARE, OTHER, SELFPAY | LOC: MRI 07:46 | PROVIDERS: ATTENDING PHYSICIAN Psychiatry & Neurology Neurology; FAMILY PHYSICIAN Family Medicine | DX: G20.C Parkinsonism, unspecified (principal); C79.89 Secondary malignant neoplasm of other specified sites; R53.1 Weakness | CPT/HCPCS: 70553; 72156 ==

== ENCOUNTER → 2024-02-18 13:37 | Outpatient (REF) | payer MEDICARE, OTHER, SELFPAY | LOC: RAD 13:37 | PROVIDERS: ATTENDING PHYSICIAN Nurse Practitioner Adult Health; FAMILY PHYSICIAN Family Medicine | DX: K94.23 Gastrostomy malfunction (principal) | CPT/HCPCS: 49465 ==

== ENCOUNTER 2024-04-08 22:51 | Emergency (ER) | payer MEDICARE, OTHER, SELFPAY ==
[2024-04-08 23:07] VITALS: BP 91/58
[2024-04-08 23:28] LABS: % Basophils 0.4 % (0-2); % Eosinophils 0.1 % (0-6); % Immature Granulocytes 0.3 % (0-0.5); % Lymphocytes 5.2 % (20.5-51.1); % Monocytes 8.6 % (1.7-9.3); % Neutrophils 85.4 % (42.2-75.2); Absolute Lymphocytes 0.4 10^3/uL (1.2-3.4); Absolute Monocytes 0.6 10^3/uL (0.1-0.6); Absolute Neutrophils 6.2 10^3/uL (1.4-6.5); Hematocrit 42.4 % (39.0-52.0); Hemoglobin 14.4 g/dL (13.0-18.0); Mean Corpuscular Hgb 33.1 pg (27.0-31.0); Mean Corpuscular Volume 97.5 fL (80.0-94.0); Nucleated Red Blood Cells % 0 % (-); Platelet Count 154 10^3/uL (130-400); Red Blood Cell Count 4.35 10^6/uL (4.70-6.10); Red Cell Dist. Width 12.3 % (11.5-14.5); White Blood Cell Count 7.3 10^3/uL (4.8-10.8)
[2024-04-08 23:44] LABS: ALT (SGPT) 14 U/L (0-50); AST (SGOT) 32 U/L (17-59); Albumin 4.5 g/dl (3.5-5.0); Alkaline Phosphatase 85 U/L (38-126); Blood Urea Nitrogen 23 mg/dl (9-20); Carbon Dioxide 28 mmol/L (22-30); Chloride 99 mmol/L (98-107); Glucose 118 mg/dl (70-99); Potassium 4.2 mmol/L (3.5-5.1); Sodium 136 mmol/L (135-145); Total Bilirubin 1.2 mg/dl (0.2-1.3); eGFR > 60.00
[2024-04-09 01:33] VITALS: BP 117/78
[2024-04-09 01:40] VITALS: BMI 23.3
[2024-04-09] MEDS: NSS 1000 IV (01:43)
--- NOTE | 2024-04-09 01:43 | ED.GENMED ---
History of Present Illness
General
Chief Complaint: Fever
Source: patient, records and spouse
Exam Limitations: none
Time Seen by Provider: 04/09/24 01:22
Nursing documentation reviewed up to this point in time: agreed with
History of Present Illness
History of Present Illness:
This is a 74-year-old gentleman who resides at home with his . 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 No history of recurrence. He also has history of atrial fibrillation,
hypertension, Parkinson's disease, CAD, GERD, GI bleed and due to dysphagia, aspiration pneumonia has feeding tube in place for the past 2 years.
He has history of polymyalgia rheumatica chronically maintained on prednisone currently at 1 mg daily.
Previous hospitalization here August 2023 for treatment of aspiration pneumonia and septic shock.
He presents with cough, congestion, fever, chills, generalized aches and fatigue that began this afternoon, worsening throughout the evening. Last dose of Tylenol via PEG tube at 10 PM.
Cough occasionally productive of yellowish phlegm.
No known close contacts with similar symptoms.
He did receive influenza vaccine this year.
Past History
Past History
ED Past Medical History: CAD, Cancer (tongue, txed w/ chemo/XRT), GERD, HTN, Hypothyroidism and Other (Parkinson's disease, aspiration pneumonia, polymyalgia rheumatica); Negative NIDDM
ED Past Surgical History: Cardiac (CABG September 2022) and Other (radical neck 1996; PEG tube)
Patient has exhibited threatening behavior?: No
PSI?: No
Social History
Tobacco: Non-smoker
Alcohol: None
Drug: None
Personal:
Living: with family
Employment: Retired
Family History
Family History: Other (Noncontributory)
Phy Exam
Physical Exam
Physical Exam:
GENERAL: 74-year-old gentleman appears his stated age, awake and alert, appears mildly ill, intermittent hacking nonproductive cough is noted. is accompanying.
EYE: pupils equal and reactive. anicteric
NECK: Evidence of prior scarring/previous radical neck surgery on the left. Neck is otherwise supple, nontender, no meningismus, no significant adenopathy.
ENT: posterior pharynx is clear, oral mucosa is moist. Mild clear rhinorrhea.
CARDIAC: Regular rate and rhythm. no murmur.
LUNGS: no acute respiratory distress, scant rales left base otherwise clear to auscultation.
ABDOMEN: Soft, nondistended, without focal tenderness, PEG tube left upper quadrant, no r/g, no cvat. normoactive BS.
NEUROLOGICAL: Alert and oriented x3, no focal neuro deficits.
SKIN: Moderately hot to touch and dry, normal color, skin intact. No rash.
MUSCULOSKELETAL: No C/C/E. peripheral pulses are full and equal b/l. No palpable tenderness.
PSYCH: Normal and appropriate interaction.
Sepsis
Sepsis Screening
Sepsis Assessment: Sepsis Ruled Out
Sepsis Screen
Sepsis Screen: Sepsis Ruled Out
Date: 04/09/24
Time: 04:00
Course
Orders/Labs/Results
Orders:
Orders
04/08/24 23:11
Chest [CR Chest - 2 Views ] Urgent
Comment:
Reason For Exam: MOIST COUGH SOB
04/08/24 23:13
Complete Blood Count/With Diff Urgent
Comprehensive Metabolic Panel Urgent
Influenza A+B Rapid Molecular Urgent
JOCELYN Source: Nasal Swab
Specimen Description:
04/09/24 01:30
0.9% Sodium Chloride 1000 ml [Nss] 1,000 ml IV BOLUS
04/09/24 01:41
Acetaminophen [Tylenol Oral Solution] 650 mg PO NOW STA
04/09/24 01:57
Lactic Acid Urgent
04/09/24 02:00
Oseltamivir [Tamiflu] 75 mg PO NOW STA
04/09/24 04:02
Ipratropium/Albuterol Sulfate [Duoneb] 3 ml INH R NOW STA
Abnormal Lab Results
04/08/24
23:13
RBC 4.35 L 10^6/uL
(4.70-6.10)
MCV 97.5 H fL
(80.0-94.0)
MCH 33.1 H pg
(27.0-31.0)
MPV 11.0 H fL
(7.4-10.4)
Absolute Lymphs (auto) 0.4 L 10^3/uL
(1.2-3.4)
Neutrophils % 85.4 H %
(42.2-75.2)
Lymphocytes % 5.2 L %
(20.5-51.1)
BUN 23 H mg/dl
(9-20)
Glucose 118 H mg/dl
(70-99)
04/08/24 23:13
04/08/24 23:13
Vital Signs
Initial and Last Documented VS:
Initial Vital Signs
Temp Pulse Resp BP Pulse Ox
100.3 F 92 26 91/58 97
04/08/24 23:07 04/08/24 23:07 04/08/24 23:07 04/08/24 23:07 04/08/24 23:07
Last Documented Vital Signs
Temp Pulse Resp BP Pulse Ox
98.9 F 92 26 117/78 94
04/09/24 03:00 04/08/24 23:07 04/08/24 23:07 04/09/24 01:33 04/09/24 01:45
MDM/Problems Addressed
Differential Diagnosis Includes:
Patient presents with acute URI, febrile illness, initial BP mildly soft.
Concern for recurrent aspiration pneumonia, influenza, concern for sepsis.
Due to chronic steroids, patient is immunocompromised.
Prior history of aspiration pneumonia, prior history of severe sepsis.
Labs thus far remarkable for influenza A is positive. CBC chemistries are unremarkable.
Chest x-ray shows rounded density left lower lobe which appears similar and unchanged from previous. Right lower lobe interstitial disease appears similar as well
Will check lactic acid.
Will initiate IV fluids, give a dose of Tylenol as well as Tamiflu.
Chronic conditions affecting care: CAD, Arrhythmia, Neurological disorder, Immunosuppressed and Cancer
*Radiology
Radiology exam reviewed: preliminary read by ED provider (Chest x-ray shows rounded density left lower lobe which appears similar and unchanged from previous. Right lower lobe airspace disease,somewhat improved from previous)
*Pulse Oximetry
Patient hypoxic: no
*Critical Care Note
Total Time (30-74mins, 75-104mins- exclusive of procedures): Not Applicable
Update Note
Update Note:
04:00
Patient resting comfortably.
Systolic blood pressure is normalized even prior to IV fluids.
Pulse ox remains normal.
Cough has improved.
He is eager to be discharged to home.
At this point no indication for hospitalization but strict return precautions discussed.
Will discharge to home with prescription for Tamiflu and I have also written a prescription for albuterol inhaler to use for as needed cough.
Recommend increasing free water flushes via PEG tube.
Continue Tylenol every 4 hours as needed for fever.
As above, return precautions discussed and prompt follow-up with PCP.
ED Attending Note
-
Portions of this chart may have been created with voice recognition software.� Occasional wrong word or��sound alike� substitutions may have occurred due to the inherent limitations of voice recognition software.
Discharge Plan
Departure
Patient Disposition: Home (Routine Discharge)
Date of Disposition: 04/09/24
Time of Disposition: 03:56
Patient with high blood pressure during this ER visit?: No
Condition: Good
Discharge Problem:
Influenza A
Instructions: How to Use a Metered Dose Inhaler ED, Flu in adults - Discharge instructions
Prescriptions:
New
albuterol sulfate 90 mcg/actuation aerosol powdr breath activated
2 inh inhalation QIDPRN PRN (Reason: shortness of breath, cough or wheezing) Qty: 1 0RF
Rx Instructions:
Dispense with spacer and instruct in it's use.
oseltamivir [Tamiflu] 6 mg/mL suspension for reconstitution
75 mg PO BID 5 Days Qty: 125 0RF
No Action
levothyroxine 25 mcg Tablet
50 mcg PO DAILY
prednisone 5 mg/5 mL Solution
1 mg FEEDING TUBE DAILY
Jevity 1.5 Jasson 0.06 gram-1.5 kcal/mL Liquid
See Rx Instructions .ROUTE .COMPLEX Qty: 0 0RF
Rx Instructions:
5 1/2 cartons per day
promethazine 6.25 mg/5 mL Syrup
12.5 mg PO HS
metoprolol tartrate 25 mg tablet
12.5 mg feeding tube Q12
aspirin 81 mg Tablet,Delayed Release (Dr/Ec)
81 mg feeding tube DAILY Qty: 30 0RF
cholecalciferol (vitamin D3) [Vitamin D3] 125 mcg (5,000 unit) Tablet
10,000 unit feeding tube MOTUWETHFR Qty: 30 0RF
acetaminophen 325 mg/10.15 mL Suspension
325 mg feeding tube Q4HPRN PRN (Reason: mild pain) Qty: 304.5 0RF
Referrals:
Jigar Chopra, [Family Provider] - Call in 1-3 days for appt
Interventions
Interventions:
*Risk Screen - Suicide Last Done: 04/09/24 01:40
*General Assessment Last Done: 04/09/24 01:40
*Neglect/Abuse Screening Last Done: 04/09/24 01:40
ED- Fall Risk Assessment Last Done: 04/09/24 01:40
*ED COVID-19 Vaccine History Last Done: 04/09/24 01:40
*Nursing Disposition Last Done: 04/09/24 04:10
ED- Neurological Assessment Last Done: 04/09/24 01:40
ED- Pulmonary Assessment Last Done: 04/09/24 01:40
ED-Skin Assessment Last Done: 04/09/24 01:40
Discharge Date and Time
Discharge Date/Time: 04/09/24 04:10
Print Language: LEBANESE
[2024-04-09 02:25] LABS: Lactic Acid 1.7 mmol/L (0.7-2.0)
[2024-04-09] MEDS: TYLENOL ORAL SOLUTION 650 MG PO (02:26)
[2024-04-09] MEDS: TAMIFLU 75 MG PO (02:29)
== END 2024-04-09 04:10 | disposition home or self-care (01) ==
LOC: EMR 22:51
PROVIDERS: Emergency Medicine; EMERGENCY PHYSICIAN Emergency Medicine; FAMILY PHYSICIAN Family Medicine
DX: J10.1 Influenza due to other identified influenza virus with other respiratory manifestations (principal); I48.91 Unspecified atrial fibrillation; I25.10 Atherosclerotic heart disease of native coronary artery without angina pectoris; I10 Essential (primary) hypertension; K21.9 Gastro-esophageal reflux disease without esophagitis; E03.9 Hypothyroidism, unspecified; G20.A1 Parkinson's disease without dyskinesia, without mention of fluctuations; M35.3 Polymyalgia rheumatica; Z79.52 Long term (current) use of systemic steroids; Z85.810 Personal history of malignant neoplasm of tongue; Z87.01 Personal history of pneumonia (recurrent); Z92.3 Personal history of irradiation; Z95.1 Presence of aortocoronary bypass graft
CPT/HCPCS: 99283; 96360; 71046; 80053; 83605; 85025; 87502

== ENCOUNTER → 2024-05-04 14:25 | Outpatient (REF) | payer MEDICARE, OTHER, SELFPAY | LOC: RAD 14:25 | PROVIDERS: ATTENDING PHYSICIAN Internal Medicine; FAMILY PHYSICIAN Family Medicine | DX: I65.23 Occlusion and stenosis of bilateral carotid arteries (principal) | CPT/HCPCS: 93880 ==

== ENCOUNTER 2024-05-19 05:57 | Day surgery (SDC) | payer MEDICARE, OTHER, SELFPAY ==
[2024-05-19] VITALS (11 sets, daily range): BP systolic 102–170; BP diastolic 71–101; BMI 23.0
[2024-05-19] MEDS: NORMOSOL-R/PLASMALYTE-A 1000 IV (06:46)
[2024-05-19] MEDS: HEPARIN 5000 UNITS SC (06:46)
--- NOTE | 2024-05-19 09:30 | OR.RPT ---
Operative Report
Operative Report
Primary Surgeon: Octavio
Assisting: Inocencia VAZQUEZ
Pre-op Diagnosis: Right inguinal hernia
Post-op Diagnosis: Same
Procedure Performed: Open repair right inguina hernia (Ruben)
Anesthesia Type: MAC local
Specimen / Cultures: None
Estimated Blood Loss: 5cc
Complications: None immediate
Operative Findings: Indirect defect, no cord lipoma, weak floor, bard soft mesh 3' x 6'
Date of Surgery: 05/19/24
Indications: This 74M developed a symptomatic right groin hernia and open repair was elected.
PROCEDURE: After informed consent was obtained, the patient was brought to the operative suite and placed supine on the operating table. The patient was sedated, prepped and draped in the usual sterile manner and an adequate local anesthetic was
administered using lidocaine and marcaine.
An obliqui incision was made extending from the midline laterally 3cm superior to the inguinal ligament. The incision was carried down to the external oblique aponeurosis and the layer was cleared of fat with blunt sweeps. A stab incision was made
in the external oblique aponeurosis and metzenbaum roger were used to elevate and incise this layer from superior to inferior, ultimately dividing the external ring, taking care to identify and sacrifice the ilioinguinal nerve. The nerve was taken
with vicryl ties and divided. The cord was identified and elevated from the pubic tubercle bluntly and encircled with a hazel drain. The cord structures were dissected away from the hernia sac which was small and empty. The sac was dissected back
to the internal ring until preperitoneal fat was visible. The sac was twisted and stick tied and excess sac was divided with metzenbaum roger. The stump retraced back through the ring. The floor was inspected and was weak and blown out. It was
carefully plicated with shallow bites of running 2-0 PDS stratafix suture. The mesh was trimmed to size and tails were created. The inferior edge of the mesh was secured to the pubic tubercle with 2-0 prolene suture. The lateral edge of the mesh was
secured to the shelving edge of the inguinal ligament with interrupted 2-0 prolene suture. The medial edge was secured to the conjoint tendon in similar fashion. The tails were crossed superior to the cord to recreate the internal ring and the tails
were sutured to eachother with 2-0 prolene suture with a tip of the hemostat able to easily pass into the ring along with the cord structures. The hazel was removed and the mesh laid flat without curling or folding. The external oblique was then
reapproximated over the mesh with 2-0 vicryl suture.
The wound was then irrigated with copious sterile saline, and hemostasis was obtained using Bovie electrocautery. The skin was approximated with 3-0 Vicryl interrupted at elida's. The same suture was used for deep dermal interrupted sutures and
finally a 4-0 monocryl suture in a subcuticular fashion. Topical skin glue was then applied. All surgical counts were reported as correct.
The patient tolerated the procedure well and was taken to the PACU in stable condition.
[2024-05-19] MEDS: DILAUDID 0.25 MG IV (09:51)
== END 2024-05-19 11:23 | disposition home or self-care (01) ==
LOC: SDS 05:57
PROVIDERS: ATTENDING PHYSICIAN Surgery; FAMILY PHYSICIAN Family Medicine
DX: K40.90 Unilateral inguinal hernia, without obstruction or gangrene, not specified as recurrent (principal)
CPT/HCPCS: 49505; 88302; C1894

== ENCOUNTER → 2024-07-09 13:37 | Outpatient (REF) | payer MEDICARE, OTHER, SELFPAY | LOC: RAD 13:37 | PROVIDERS: ATTENDING PHYSICIAN Nurse Practitioner Adult Health; FAMILY PHYSICIAN Family Medicine | DX: K94.23 Gastrostomy malfunction (principal) | CPT/HCPCS: 49465 ==

== ENCOUNTER 2024-08-20 02:28 | Inpatient (IN) | payer MEDICARE, OTHER, SELFPAY ==
[2024-08-19] VITALS (7 sets, daily range): BP systolic 74–147; BP diastolic 49–113; PULSE 2–124; BMI 25.1
[2024-08-19 22:38] LABS: Glucose - Point of Care 136 mg/dl (70-99)
[2024-08-19 23:05] LABS: Blood Urea Nitrogen 24 mg/dl (9-20); Calcium 10.1 mg/dl (8.4-10.2); Carbon Dioxide 28 mmol/L (22-30); Chloride 100 mmol/L (98-107); Glucose 156 mg/dl (70-99); Sodium 142 mmol/L (135-145); eGFR > 60.00
[2024-08-19 23:13] LABS: Hematocrit 46.5 % (39.0-52.0); Hemoglobin 15.7 g/dL (13.0-18.0); Mean Corp Hgb Conc. 33.8 g/dL (33.0-37.0); Mean Corpuscular Volume 97.5 fL (80.0-94.0); Nucleated Red Blood Cells % 0 % (-); Platelet Count 164 10^3/uL (130-400); Red Cell Dist. Width 12.2 % (11.5-14.5)
[2024-08-19] MEDS: ZOFRAN 8 MG IV (23:13)
[2024-08-19 23:14] LABS: Troponin I < 0.012 ng/ml
[2024-08-19 23:21] LABS: APTT 20.4 Sec (23.4-35.0); INR 0.95; PT 13.2 Sec (11.4-14.6)
--- NOTE | 2024-08-19 23:28 | ED.GENMED ---
History of Present Illness
General
Chief Complaint: Breathing Problem
Source: patient
Exam Limitations: none
Time Seen by Provider: 08/19/24 22:46
Nursing documentation reviewed up to this point in time: agreed with
History of Present Illness
History of Present Illness:
Note:
CHIEF COMPLAINT(S)
Respiratory distress and recent vomiting.
HISTORY OF PRESENT ILLNESS
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 The patient has been experiencing general
weakness for a while, but the condition deteriorated this afternoon around dinner time when the patient vomited twice. The vomit was described as being the color of the patient�s feeding tube supplement (Jevity). No blood was noted in the vomitus.
Following the vomiting, the patient experienced difficulty breathing. The patient reported a fever of 102 degrees Fahrenheit.
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 It is unclear the exact cause of the paralysis onset, but it was noted to have happened recently within the past few years.
The patient has declined intubation and mechanical ventilation as per his advanced directives, and BiPAP is to be used instead. The patient is currently on BiPAP therapy. Patient has an NG tube in place.
ADDITIONAL HISTORY OBTAINED FROM SOURCES OTHER THAN THE PATIENT
Per the patient�s spouse, the patient�s respiratory distress began after vomiting twice. The spouse verified the absence of blood in the vomit and confirmed adherence to the advanced directive against intubation.
CHRONIC MEDICAL CONDITIONS SIGNIFICANTLY AFFECTING CARE
1. History of squamous cell neck cancer in remission.
2. Parkinsons disease.
3. Paralysis due to previous radiation treatment.
MEDICATIONS
Thyroid medication, Jevity for the feeding tube.
REVIEW OF SYSTEMS
- Respiratory: Respiratory distress noted.
- Gastrointestinal: Vomiting with Jevity-colored content; no blood noted.
- Neurological: Generalized weakness; paralysis associated with previous radiation.
PLANS
1. Continue BiPAP therapy to assist with respiratory distress.
2. Monitor oxygen saturation levels and respiratory function.
3. Evaluate and address the cause of vomiting if necessary.
DIFFERENTIAL DIAGNOSIS
The Differential Diagnosis includes, in no particular order and is not limited to:
1. Aspiration pneumonia
2. Respiratory infection
3. Obstructive sleep apnea exacerbation
4. Chronic obstructive pulmonary disease exacerbation
5. Congestive heart failure
6. Neuromuscular respiratory failure
7. Gastroesophageal reflux disease-related aspiration
8. Medication side effects
9. Fever-related hypermetabolic state
10. Pulmonary embolism
CARE-UPDATE
08/19/24 - 22:59
X-ray reveals improvement; potential right lower lobe infiltrate noted with slight pulmonary vascular congestion.
CARE-UPDATE
08/19/24 - 23:23
The patient will be admitted with clear instructions that he is DNI (Do Not Intubate). Clarified that in the event of deterioration, he does not want mechanical ventilation or intubation. No significant findings on the x-ray, although there is a
small amount of fluid, which may not yet fully represent his condition. The patient was without adequate supplementation briefly, and measures will be taken to address this.
Disposition:
SUMMARY OF ENCOUNTER
The patient, a 74-year-old male, presented to the emergency department with hypoxia following an episode of vomiting. He subsequently developed respiratory distress. The patient has a history of radical neck surgery performed 27 years ago and is a
Do Not Resuscitate (DNR) and Do Not Intubate (DNI) as confirmed by the patient and his spouse. Upon arrival, the patients oxygenation improved significantly from 50% on room air to 97% with BiPAP therapy. An NG tube was inserted to help evacuate the
gastric contents associated with Jevity, which has been implicated in the patients vomiting. The fever observed in the patient is likely attributable to aspiration.
DISPOSITION
Admit
ASSESSMENT
The patients respiratory distress and fever are likely secondary to aspiration following vomiting, with contributing factors including history of radical neck surgery and possibly aspiration pneumonia.
PLAN
1. Admit the patient to the hospital service for further management.
2. Continue BiPAP therapy to maintain oxygenation and support respiratory function.
3. Monitor and treat potential aspiration pneumonia.
4. Address nutritional support and modifications, taking aspiration risk into consideration.
INDEPENDENT REVIEW OF LABS AND INTERPRETATION OF TESTS
- My independent interpretation of the chest x-ray reveals improvement with potential right lower lobe infiltrate and slight pulmonary vascular congestion.
MEDICAL DECISION MAKING
- Number and Complexity of Problems Addressed: Chronic conditions affecting care include history of neck cancer, Parkinsons disease, and paralysis due to previous radiation treatment. Differential diagnosis includes aspiration pneumonia, respiratory
infection, obstructive sleep apnea exacerbation, chronic obstructive pulmonary disease exacerbation, congestive heart failure, neuromuscular respiratory failure, gastroesophageal reflux disease-related aspiration, medication side effects,
fever-related hypermetabolic state, and pulmonary embolism.
- Data:
Category 1: Reviewed external records including history from patients prior surgical history and information from his spouse.
Category 2: Clinical information was obtained from an independent historian, the spouse.
- Risk: Decisions to escalate care by hospital admission were influenced by the patients aspiration risk and respiratory distress.
DIAGNOSIS
1. Aspiration pneumonia (ICD-10 code: J69.0)
2. Respiratory distress (ICD-10 code: R06.00)
3. Fever (ICD-10 code: R50.9)
Past History
Past History
ED Past Medical History: CAD, Cancer (tongue, txed w/ chemo/XRT), GERD, HTN, Hypothyroidism and Other (Parkinson's disease, aspiration pneumonia, polymyalgia rheumatica); Negative NIDDM
ED Past Surgical History: Cardiac (CABG September 2022) and Other (radical neck 1996; PEG tube)
Patient has exhibited threatening behavior?: No
PSI?: No
Social History
Tobacco: Non-smoker
Alcohol: None
Drug: None
Personal:
Living: with family
Employment: Retired
Family History
Family History: Other (Noncontributory)
Review of Systems
Review of Systems
Allergies reviewed?: Yes
Other source history: family
All Other Systems: ROS reviewed and negative except as documented in HPI and ROS
Constitutional: Reports no symptoms
EENT: Reports no symptoms
Respiratory: Reports no symptoms
Cardiac: Reports no symptoms
ABD/GI: Reports nausea and vomiting
: Reports no symptoms
Musculoskeletal: Reports no symptoms
Skin: Reports no symptoms
Neurological: Reports no symptoms
Endocrine: Reports no symptoms
Hematologic/Lymphatic: Reports no symptoms
Psychiatric: Reports no symptoms
Phy Exam
General Physical Exam
General Presentation: severe distress
General age: appears older than age
General Skin: warm and dry
General Habitus: cachetic
General Mental: anxious
General Chronic Disability: contractures and g-tube
Cardiovascular Exam
Cardiovascular Exam: regular rate/rhythm
Neurological Exam
Neurological Exam: alert
Musculoskeletal Exam
Musculoskeletal Exam: full ROM and no edema
Skin Exam
Skin Exam: normal color
Psychiatric Exam
Psychiatric Exam: labile
Scores
Heart Failure Risk
Heart Failure Risk Score: Not Applicable
Sepsis
Sepsis Screening
Sepsis Assessment: Septic Shock
Sepsis Screening: Lactate >/=4mmol/L, Hypotension, Urine output- <0.5ml/kg/hr for 2 consecutive hours, Worsening O2 Saturation and Need for mechanical ventilation or BiPAP
Sepsis Screen
Sepsis Screen: Septic Shock
Date: 08/20/24
Time: 00:11
Course
Orders/Labs/Results
Orders:
Orders
08/19/24 22:39
Electrocardiogram (*1) Urgent
Reason for Study: Other
Other Reason for Exam: Respiratory Distress
Cardiac Monitoring- Treatment ONCE
EKG- Treatment ONCE
IV Insert/Care/Rem.- Treatment PRN
CR Chest Portable - 1 View Urgent
Comment:
Reason For Exam: respiratory distress
Reason Study Needs to be Portable: Patient Unstable
O2 Therapy [RESP] Urgent
Titrate/Wean O2 to maintain O2 sat greater than (%): 93
Special Instructions: TO MAINTAIN CONTINUOUS O2 SATS >/= 93%
Pulse Ox/cont/shift [RESP] Urgent
Quantity: 1
Special Instructions: continuous pulse ox
08/19/24 22:41
Basic Metabolic Panel Urgent
Comment: NO K
NT-proBNP Urgent
Troponin I Urgent
08/19/24 22:51
PTT Urgent
Prothrombin Time Urgent
08/19/24 23:00
Complete Blood Count/With Diff Urgent
Lactic Acid Q4H
Comment: CANCEL 2nd LACTIC ACID IF 1st LACTIC ACID IS LESS THAN 2
Blood Culture Q30M
JOCELYN Source: Blood/Venous
Specimen Description:
08/19/24 23:04
Ondansetron Injectable [Zofran] 8 mg .ROUTE .[facility]
08/19/24 23:05
Blood Culture Urgent
JOCELYN Source: Blood/Venous
Specimen Description:
08/19/24 23:11
Ondansetron Injectable [Zofran] 8 mg IV NOW STA
08/19/24 23:25
COVID-19 Antigen Urgent
Source: Nasal Swab
Influenza A+B Rapid Molecular Urgent
JOCELYN Source: Nasal Swab
Specimen Description:
08/19/24 23:26
Ampicillin/Sulbactam 3 G [Unasyn] 3 gm 0.9% Sodium Chloride 100 ml [Nss] 100 ml IV NOW
08/19/24 23:30
Blood Culture Q30M
JOCELYN Source: Blood/Venous
Specimen Description:
08/19/24 23:32
0.9% Sodium Chloride 1000 ml [Nss] 2,300 ml IV NOW STA
08/19/24 23:52
NG Tube [GI tube insertion- Treatment] ONCE
08/19/24 23:58
Comprehensive Metabolic Panel Urgent
Comment: REDRAW
08/20/24 03:00
Lactic Acid Q4H
Comment: CANCEL 2nd LACTIC ACID IF 1st LACTIC ACID IS LESS THAN 2
Abnormal Lab Results
08/19/24 08/19/24 08/19/24
22:37 22:41 22:51
WBC
MCV
MCH
MPV
Abs Immat Gran (auto)
Absolute Neuts (auto)
Absolute Monos (auto)
Neutrophils %
Lymphocytes %
APTT 20.4 L Sec
(23.4-35.0)
BUN 24 H mg/dl
(9-20)
Creatinine 0.6 L mg/dL
(0.7-1.3)
Glucose 156 H mg/dl
(70-99)
Lactic Acid
POC Glucose 136 H mg/dl
(70-99)
08/19/24
23:00
WBC 15.3 H 10^3/uL
(4.8-10.8)
MCV 97.5 H fL
(80.0-94.0)
MCH 32.9 H pg
(27.0-31.0)
MPV 11.4 H fL
(7.4-10.4)
Abs Immat Gran (auto) 0.1 H 10^3/uL
(0-0.05)
Absolute Neuts (auto) 12.4 H 10^3/uL
(1.4-6.5)
Absolute Monos (auto) 0.8 H 10^3/uL
(0.1-0.6)
Neutrophils % 81.2 H %
(42.2-75.2)
Lymphocytes % 12.4 L %
(20.5-51.1)
APTT
BUN
Creatinine
Glucose
Lactic Acid 4.0 H* mmol/L
(0.7-2.0)
POC Glucose
08/19/24 23:00
Vital Signs
Initial and Last Documented VS:
Initial Vital Signs
Pulse Resp
126 23
08/19/24 22:40 08/19/24 22:40
Last Documented Vital Signs
Temp Pulse Resp BP Pulse Ox
98.7 F 80 37 77/51 95
08/19/24 22:42 08/19/24 23:49 08/19/24 23:49 08/19/24 23:49 08/19/24 23:59
*Pulse Oximetry
SaO2: 56
Oxygen Mode of Delivery: Room air
Patient hypoxic: yes
*Critical Care Note
Total Time (30-74mins, 75-104mins- exclusive of procedures): 51 (Critical care statement: A total of 51 minutes of critical care time was provided for this patient. This time is separate from time utilized to perform the aforementioned documented
procedures. Aggregate critical care time includes only time during which I was engaged in work directl)
ED Attending Note
-
Portions of this chart may have been created with voice recognition software.� Occasional wrong word or��sound alike� substitutions may have occurred due to the inherent limitations of voice recognition software.
Discharge Plan
Departure
Patient Disposition: Admit
Date of Disposition: 08/20/24
Time of Disposition: 00:12
Presentation/result/management discussed w/ accepting MD/DO: Hospitalist
Condition: Good
Discharge Problem:
Aspiration pneumonia, Septic shock, Lactic acidosis, Acute hypoxic respiratory failure, PEG (percutaneous endoscopic gastrostomy) status, History of tongue cancer
Prescriptions:
No Action
metoprolol tartrate 25 mg tablet
12.5 mg feeding tube BID
carbidopa-levodopa 25-100 mg Tablet
1.5 tab feeding tube TID
levothyroxine 50 mcg Tablet
50 mcg feeding tube DAILY
oxycodone 5 mg/5 mL Solution
5 mg feeding tube HSPRN PRN (Reason: mild pain/sleep)
prednisone 1 mg Tablet
2 mg feeding tube DAILY@1400
omeprazole [Prilosec] 20 mg Capsule,Delayed Release(Dr/Ec)
20 mg feeding tube DAILYPRN PRN (Reason: gerd)
azelastine 137 mcg (0.1 %) [place],Non-Aerosol
2 spray INTRANASAL Q12H
acetaminophen [Tylenol Extra Strength] 500 mg/15 mL Liquid
1,000 mg feeding tube DAILYPRN PRN (Reason: fever)
cholecalciferol (vitamin D3) 250 mcg (10,000 unit) Capsule
250 mcg feeding tube MOTUWETHFR
aspirin 81 mg Tablet,Delayed Release (Dr/Ec)
81 mg feeding tube DAILY Qty: 30 0RF
Referrals:
Jigar Chopra DO [Family Provider, Family Practice]
Interventions
Interventions:
*Risk Screen - Suicide Last Done: 08/19/24 22:42
*General Assessment Last Done: 08/19/24 23:33
*Neglect/Abuse Screening Last Done: 08/19/24 22:42
*ED- Fall Risk Assessment Last Done: 08/19/24 23:33
ED- Cardiac Assessment Last Done: 08/19/24 23:59
ED- Neurological Assessment Last Done: 08/19/24 23:59
ED- Pulmonary Assessment Last Done: 08/19/24 23:59
ED-Skin Assessment Last Done: 08/19/24 23:59
Discharge Date and Time
Print Language: TELUGU
[2024-08-19] MEDS: NSS 2300 ML IV (23:46)
[2024-08-19] MEDS: UNASYN IV (23:46)
[2024-08-20] VITALS (20 sets, daily range): BP systolic 78–135; BP diastolic 52–85; BMI 23.2
[2024-08-20] LABS: COVID-19 Antigen Negative (Negative)
--- NOTE | 2024-08-20 00:38 | HPS.HSE ---
Family Physician
-
Family Physician: Jigar Chopra
Chief Complaint
-
fever
History of Present Illness
74yo M with PMHx of esophageal CA s/p PEG, worsening paralysis, hypothyroidism, GERD, HTN, parkinsons brought from home after 3 episodes of vomiting and subsequent development of high fever. Hypoxic initially, recovered on BiPAP since patient DNI.
chest XR with large LLL pneumonia, possible aspiration, as similar episodes before. No abdominal symmptoms at this pont.
Medical History
Past Medical History
Past Medical History: Reports Other
Additional Past Medical History:
see HPI
Past Surgical History: Reports Other
Additional Past Surgical History:
see HPI
Social History
Tobacco: Non-smoker
Alcohol: None
Drug: None
Family History
Family History: Not pertinent
Allergies / Home Medications
Allergies reflects when Allergies were last updated in [facility].
Home Medications with original date entered in [facility]
Allergy/Medication List:
Allergies
Allergy/AdvReac Type Severity Reaction Status Date / Time
lobster Allergy SEVERE Verified 08/19/24 22:42
STOMACH
PAIN
venom-honey bee Allergy BEE Verified 08/19/24 22:42
STING-ANAPHYLAXIS
Home Medications
aspirin 81 mg tablet,delayed release 81 mg feeding tube DAILY Blood Clot Prevention/Tx #30 tabs 10/18/22
metoprolol tartrate 25 mg tablet 12.5 mg feeding tube BID 04/09/24
carbidopa 25 mg-levodopa 100 mg tablet 1.5 tab feeding tube TID 05/15/24
levothyroxine 50 mcg tablet 50 mcg feeding tube DAILY 05/15/24
acetaminophen 500 mg/15 mL oral liquid 1,000 mg feeding tube DAILYPRN PRN fever 08/19/24
azelastine 137 mcg (0.1 %) nasal spray 2 spray intranasal Q12H 08/19/24
cholecalciferol (vitamin D3) 250 mcg (10,000 unit) capsule 250 mcg feeding tube MOTUWETHFR 08/19/24
omeprazole 20 mg capsule,delayed release 20 mg feeding tube DAILYPRN PRN gerd 08/19/24
oxycodone 5 mg/5 mL oral solution 5 mg feeding tube HSPRN PRN mild pain/sleep 08/19/24
prednisone 1 mg tablet 2 mg feeding tube DAILY@1400 08/19/24
Review of Systems
-
History Source: Patient
A 12 point ROS was completed and negative except as noted: Yes
Respiratory: Reports See HPI
Physical Exam
Vital Signs
Vital Signs
Temp Pulse Resp BP Pulse Ox
98.7 F 80 35 80/67 95
08/19/24 22:42 08/20/24 00:15 08/20/24 00:15 08/20/24 00:15 08/19/24 23:59
Physical Exam
General: Well Nourished, No Apparent Distress and Comfortable
HEENT: NormoCephalic, Anicteric and Moist mucous membranes
Respiratory: Clear; No Wheezes or Crackles
Cardiac: S1/S2 and Regular Rhythm; No Tachycardia
GI: Soft, Non Tender, Non Distended and Peg Tube
Genito-urinary: No costovertebral tender
Musculoskeletal: No Clubbing, No Cyanosis and No Edema
Skin: Warm; No Dry, Rash or Jaundice
Neuro: Awake, Alert and Oriented
Psych: Calm
Laboratory Results
-
08/19/24 23:00
Laboratory Results
PT 13.2 Sec (11.4-14.6) 08/19/24 22:51
INR 0.95 08/19/24 22:51
APTT 20.4 Sec (23.4-35.0) L 08/19/24 22:51
Lactic Acid 4.0 mmol/L (0.7-2.0) H* 08/19/24 23:00
Total Bilirubin Cancelled 08/19/24 23:25
AST Cancelled 08/19/24 23:25
ALT Cancelled 08/19/24 23:25
Alkaline Phosphatase Cancelled 08/19/24 23:25
Troponin I < 0.012 ng/ml 08/19/24 22:41
Data Reviewed
-
Diagnostic Radiology: Report Reviewed by me
Lab Data: Labs Reviewed by me
Impression/Plan
-
A/P:
#LLL probably aspiration pneumonia with acute hypoxic failure on BiPAP
#Sepsis with hypotension
VAnco/ZOsyn
COVID-19, Influenza PCR neg
attempt HFNC
IVF
Bcx
hold feeding and get rum processing operator consult, might need slow uptitration
IMU admission
serial lactate
#nausea/vomiting
abd benign
possibly 2/2 large tube feeds or 2/2 fever
Adjuster Arbitrator cosult for tube feeds
follow LFT
#Iatrogenic adrenal insufficiency
increase steroids to stress doses, while in sepsis, then titrate to home 2mg rapidly
#Hypothyroidism
check TSH, cont Synthroid when PO intake
#Essential HTN
#CAD s/p CABG
#parkinsons
restart toprol when BP improves
cont home meds
DVT ppx hep
DNR/DNI - discussed with patient and bedside
I have spent at least 79min admitting patient
[2024-08-20 00:48] LABS: ALT (SGPT) 10 U/L (0-50); AST (SGOT) 28 U/L (17-59); Albumin 4.4 g/dl (3.5-5.0); Alkaline Phosphatase 71 U/L (38-126); Blood Urea Nitrogen 25 mg/dl (9-20); Calcium 9.7 mg/dl (8.4-10.2); Carbon Dioxide 29 mmol/L (22-30); Chloride 102 mmol/L (98-107); Estimated Creatinine Clearance 98 ml/min; Glucose 103 mg/dl (70-99); Potassium 4.2 mmol/L (3.5-5.1); Sodium 140 mmol/L (135-145); Total Protein 6.8 g/dl (6.3-8.2); eGFR > 60.00
[2024-08-20] MEDS: VANCOCIN 540 MG IV (00:59)
[2024-08-20] MEDS: DECADRON 6 MG IV ×3 (01:00→22:46)
[2024-08-20] MEDS: DUONEB 3 ML INH (01:38)
[2024-08-20] MEDS: LR 1000 IV (03:28)
[2024-08-20] MEDS: ROXICODONE ORAL SOLUTION 5 MG TUBE ×3 (03:37→22:51)
[2024-08-20 03:50] LABS: Hematocrit 39.7 % (39.0-52.0); Hemoglobin 13.2 g/dL (13.0-18.0); Mean Corp Hgb Conc. 33.2 g/dL (33.0-37.0); Mean Corpuscular Volume 99.0 fL (80.0-94.0); Nucleated Red Blood Cells % 0 % (-); Platelet Count 114 10^3/uL (130-400); Red Cell Dist. Width 12.2 % (11.5-14.5)
[2024-08-20 04:10] LABS: ALT (SGPT) 12 U/L (0-50); AST (SGOT) 26 U/L (17-59); Albumin 3.7 g/dl (3.5-5.0); Alkaline Phosphatase 60 U/L (38-126); Blood Urea Nitrogen 22 mg/dl (9-20); Calcium 8.6 mg/dl (8.4-10.2); Carbon Dioxide 25 mmol/L (22-30); Chloride 110 mmol/L (98-107); Estimated Creatinine Clearance 115 ml/min; Glucose 108 mg/dl (70-99); Potassium 4.2 mmol/L (3.5-5.1); Sodium 140 mmol/L (135-145); Total Protein 6.0 g/dl (6.3-8.2); eGFR > 60.00
--- NOTE | 2024-08-20 04:25 | PTCARENOTE ---
received pt from ED at 0230. pt aaox3, able to make needs known. vanco and NSS bolus running on arrival. Bolus completed, switched to continuous IVF, LR@80ml/hr. Lactic 1.8 at 0320, additional lactic orders cancelled. Pt remains on HFNC 50L 100%,
SaO2 99%. Lungs coarse with rhonchi/crackles. Suction at bedside, pt suctions self prn throughout shift. Weak, productive cough. Daily/yellow sputum. VSS. Afebrile. PEG tube intact, no residual. 5mg oxycodone given through PEG tube for chronic pain/to
help pt sleep. Call trujillo and belongings within reach. Care ongoing.
[2024-08-20 04:40] LABS: TSH 1.32 uIU/ml (0.47-4.68)
[2024-08-20] MEDS: ZOSYN 50 IV ×4 (05:53→23:04)
[2024-08-20] MEDS: SYNTHROID 50 MCG TUBE (05:53)
--- NOTE | 2024-08-20 08:00 | PTCARENOTE ---
PT AAOx3, on hf o2 pEG TUBE IN PLACE . pT NPO AWAITING BRAND COORDINATOR FOR TF ORDERS. PT IS VERY SOFT SPOKEN AND SLIGHTLY GARBLED DUE TO MULITPLE NECK SURGERIES. lUGS ARE COARSE. CALL DIAZ WITHIN REACH
[2024-08-20] MEDS: SINEMET 25-100 1.5 TABLET TUBE ×3 (08:47→22:49)
[2024-08-20] MEDS: HEPARIN 5000 UNITS SC ×3 (08:48→23:03)
[2024-08-20] MEDS: LOW STRENGTH ASPIRIN 81 MG TUBE (08:48)
--- NOTE | 2024-08-20 09:26 | CON.PUL ---
Consultation
Consultation Request
Date/Time Consultation Requested: 08/20/2024810
Date/Time Consultation Performed: 08/20/2024919
Requesting Provider: Dr. Galicia
Performing Provider: Dr. Ramos
Reason for Consultation: Acute hypoxia
Medical History
-
Chief Complaint: Increased SOB + fever
History of Present Illness:
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
chronic pleural plaques and history of flu A (March 07) who presents with worsening SOB + fever. He had vomited several times prior to arrival. In triage he was saturating 60% on room air. Saturations improved to the low�mid 90s on CPAP, and
then he was transition to high flow nasal cannula. Of note, he is DNR/DNI. He also was initially afebrile with initial heart rate 126, respiratory rate 23 and initial BP 147/113. Initial labs pertinent for leukocytosis to 15.3, Hb 15.7, platelet
count 164, lactate 4.0, troponin negative at <0.012, proBNP WNL at 125, and COVID-19 antigen negative. Flu swab was also negative. Blood cultures collected. CXR showed mild acute interstitial pulmonary edema with a small chronic left-sided
pleural effusion and a large chronic airspace consolidation in the left lower lobe with superimposed pneumonia difficult to exclude. In the ER he was given IVF with total of 2.3 L NS 0.9%, 6 mg Decadron, DuoNebs, Zofran, Unasyn and vancomycin.
Given his high oxygen requirements, he was admitted to the IMU, and Pulmonary service consulted for additional management/recommendations.
When I saw the patient, he was resting in bed in no acute distress. Currently on 6 L/min nasal cannula with heart rate 69, BP 95/65 and saturating 100%. He is breathing more comfortably now. Currently denies chest pain, LOCKE, nausea, fevers or
chills.
Of note, patient has followed with us at the [facility] office with Dr. Albright, last visit 11/06/2023. He was seen after being hospitalized for acute hypoxic respiratory failure due to aspiration pneumonitis. He was admitted to the ICU at that time due
to septic shock requiring vasopressors. He recovered and was doing well at that office visit. He has a chronic loculated left-sided pleural effusion. He was told to follow-up in 1 year.
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
cancer, history of yeast infection, PMR, Parkinson disease, history of influenza A (February 2024), chronic pleural plaques
PSHx: Tongue resection, neck surgery with muscles removed, PEG tube placement (04/24/2022), CABG x 3 (10/01/2022), open repair of right inguinal hernia (05/19/2024)
Past Medical History
Past Medical History: Other (Above as per HPI)
Past Surgical History: Other (Above as per HPI)
Social History
Tobacco: Non-smoker
Alcohol: None
Drug: None
Personal:
Living: With Family
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
Family History
Family History: CAD (Father; Sister: History of 7 cardiac stents; brother: History of 12 cardiac stents), Cancer (Mother: Lung cancer), Diabetes (Sister), Hypertension (Father) and Other (Mother: COPD; father: History of DVT; brother: History of
stroke)
Allergies / Home Medications
Allergies
Allergy/AdvReac Type Severity Reaction Status Date / Time
lobster Allergy SEVERE Verified 08/19/24 22:42
STOMACH
PAIN
venom-honey bee Allergy BEE Verified 08/19/24 22:42
STING-ANAPHYLAXIS
Home Medications
�Medication �Instructions �Recorded �Confirmed �Last Taken �Type
aspirin 81 mg tablet,delayed 81 mg feeding tube DAILY Blood 10/18/22 08/19/24 08/19/24 Rx
release Clot Prevention/Tx #30 tabs
metoprolol tartrate 25 mg tablet 12.5 mg feeding tube BID 04/09/24 08/19/24 08/19/24 History
carbidopa 25 mg-levodopa 100 mg 1.5 tab feeding tube TID 05/15/24 08/19/24 08/19/24 History
tablet
levothyroxine 50 mcg tablet 50 mcg feeding tube DAILY 05/15/24 08/19/24 08/19/24 History
acetaminophen 500 mg/15 mL oral 1,000 mg feeding tube DAILYPRN PRN 08/19/24 08/19/24 08/19/24 History
liquid fever
azelastine 137 mcg (0.1 %) nasal 2 spray intranasal Q12H 08/19/24 08/19/24 08/19/24 History
spray
cholecalciferol (vitamin D3) 250 250 mcg feeding tube MOTUWETHFR 08/19/24 08/19/24 08/18/24 History
mcg (10,000 unit) capsule
omeprazole 20 mg capsule,delayed 20 mg feeding tube DAILYPRN PRN 08/19/24 08/19/24 08/19/24 History
release gerd
oxycodone 5 mg/5 mL oral solution 5 mg feeding tube HSPRN PRN mild 08/19/24 08/19/24 Unknown History
pain/sleep
prednisone 1 mg tablet 2 mg feeding tube DAILY@1400 08/19/24 08/19/24 08/19/24 History
Review of Systems
-
History Source: Patient
All other systems: Negative unless noted
Vitals / Labs / Diagnostic Testing
Vital Signs
Temp Pulse Resp BP Pulse Ox
97.5 F 81 22 123/81 100
08/20/24 07:53 08/20/24 06:00 08/20/24 06:00 08/20/24 06:00 08/20/24 08:04
Lab Data
08/20/24 03:20
08/20/24 03:20
Laboratory Results
08/19/24
22:51
PT 13.2
INR 0.95
APTT 20.4 L
Microbiology
08/19/24 23:25 Nasal Swab Influenza Types A & B (LUIS) - Final
Negative for Influenza A & B, NAAT
Negative results must be combined with clinical observations
and patient history.
Nucleic Acid Amplification test (NAAT)performed on the
[employer] platform.
Diagnostic Testing:
Physical Exam
-
HEENT: Normocephalic and Anicteric
Cardiovascular: S1/S2 and Peripheral Edema (negative)
Respiratory: Wheeze (negative), Rales (Left base), Rhonchi (negative) and Non-Labored Respirations
GI: Soft, Non Distended, Tender, Non Tender and Other (G-tube)
Neurology: Awake, Alert and Tremors (negative)
Skin: Warm and Dry
General: Respiratory Distress (negative), Comfortable, Fever (negative) and Chills (negative)
Assessment
-
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
(11/03), PMR, PVD, chronic pleural plaques and history of flu A (March 07) who presents with worsening SOB + fever. He had vomited several times prior to arrival. In triage he was saturating 60% on room air. Saturations improved to the low�mid
90s on CPAP, and then he was transition to high flow nasal cannula. Of note, he is DNR/DNI. He also was initially afebrile with initial heart rate 126, respiratory rate 23 and initial BP 147/113. Initial labs pertinent for leukocytosis to 15.3,
Hb 15.7, platelet count 164, lactate 4.0, troponin negative at <0.012, proBNP WNL at 125, and COVID-19 antigen negative. Flu swab was also negative. Blood cultures collected. CXR showed mild acute interstitial pulmonary edema with a small chronic
left-sided pleural effusion and a large chronic airspace consolidation in the left lower lobe with superimposed pneumonia difficult to exclude. In the ER he was given IVF with total of 2.3 L NS 0.9%, 6 mg Decadron, DuoNebs, Zofran, Unasyn and
vancomycin. Given his high oxygen requirements, he was admitted to the IMU, and Pulmonary service consulted for additional management/recommendations.
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
COVID-19 (10/2022), skin cancer, history of yeast infection, PMR, Parkinson disease, history of influenza A (February 2024), chronic pleural plaques
Impression:
#Community-acquired pneumonia involving left lower lobe (suspected to be due to aspiration in the setting of history of vomiting x 2 prior to arrival)
#Sepsis due to above without shock
#Acute respiratory failure with hypoxia due to above
#Thrombocytopenia due to sepsis from pneumonia
#Lactic acidosis � resolved
#Chronic hyperbilirubinemia
#Chronic left lower lobe consolidation with loculated pleural effusion
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
#Dysphagia s/p PEG
#Parkinson disease
Plan:
- Although patient has been on high flow nasal cannula overnight on 08/20, he is now weaned down to 6 L/min nasal cannula, breathing comfortably
- Of note, he is DNR/DNI
- Continue broad-spectrum antibiotics, currently with Vanco + Zosyn
- If MRSA swab negative, then DC IV vanco
- Follow-up blood cultures x 2 (collected 08/19); check sputum culture if patient can produce a decent sample; check urine antigens for Legionella + strep pneumonia
- Considering his severe CAP, continue with systemic steroids with Decadron 6 mg IV q12hr, weaning as he clinically improves
- Maintain euglycemia while on high-dose steroids, with goal BG >100 and <180mg/dL
- Continue aspiration precautions
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
- If patient has no episodes of vomiting nor endorses abdominal discomfort/nausea by tomorrow, then would resume tube feeds at trickle rate, increasing rate towards goal as tolerated
- Continue with Sinemet 25�100
- Maintain SpO2 >90-94% with supplemental O2, weaning down as tolerated
- prn nebulized bronchodilators - not currently bronchospastic
- Incentive spirometer encouraged q1hr while awake
- Replete electrolytes with K>4, Mg>2
- Trend H/H and transfuse if needed to keep Hb>7g/dL; keep plt>20k, unless there is concern for bleeding then keep plt>50k
- Continue omeprazole (will medication that he take as needed - -> given his vomiting prior to arrival, would continue this now once daily)
- DVT ppx: HSQ
Pulmonary service will continue to follow along. Recommend continued outpatient pulmonary office follow-up after discharge, as last visit was with Dr. Albright on 11/06/2023.
Data:
CXR 08/19/2024:
1. Mild acute interstitial cardiogenic pulmonary edema.
2. Small chronic left pleural effusion.
3. Large chronic airspace consolidation in the basilar left lower lobe (probably chronic atelectasis and scarring, although superimposed pneumonia is also possible if there are signs/symptoms of pulmonary infection).
4. Chronic asbestos exposure with calcified pleural plaques in both hemithoraces.
5. Previous CABG surgery.
Total time spent today was 77 minutes for this encounter. Time includes reviewing laboratory test/imaging results, reviewing pertinent medical records, obtaining and reviewing medical history, performing an appropriate exam, ordering medications,
tests and procedures. Time also includes documentation of this encounter, coordinating patient care and communicating with other healthcare professionals. Total time does not include separately billed tests performed on this date of service.
--- NOTE | 2024-08-20 09:34 | PHA.VAN.IN ---
Assessment
- Assessment
Renal Function: Appears similar to baseline
Concomitant Antimicrobials: piperacillin/tazobactam
AUC Dosing Plan
- Dosing Variables
Dosing Weight (kg): 73
Dosing CrCl (ml/min): 115
Vd coefficient (L/kg): 0.7
- Empiric Dosing
Initial / Loading Dose: 2000mg - 08/20 00:59
Maintenance Regimen: Vanc 1250mg Q12H starting at 1800
Estimated AUC (mcg*h/mL): 527
Estimated Peak (mcg*h/mL): 35
Estimated Trough (mcg/ml): 12.3
Estimated Half Life (H): 6.9
- Monitoring
No levels ordered at this time: consider levels in next few days
MRSA Screen: Ordered per protocol
Pharmacokinetics Vancomycin I
- -
Patient Age: 74
Patient Sex: Male
Vancomycin Day #: 1
Indication: Pulmonary/Respiratory
Requesting Provider: Dr. Rodriguez
Pertinent Antimicrobial Allergies:
no pertinent antibiotic allergies
Height / Weight:
Height 5 ft 10 in
Actual Weight 73.3 kg
- Vital Signs / Lab Results
Temp Pulse Resp BP Pulse Ox
97.5 F 81 22 123/81 100
08/20/24 07:53 08/20/24 06:00 08/20/24 06:00 08/20/24 06:00 08/20/24 08:04
Lab Results - Hematology
08/19/24 08/19/24 08/20/24
22:41 23:00 03:20
WBC Cancelled 15.3 H 9.3
Lab Results - Chemistry
08/19/24 08/19/24 08/20/24
22:41 23:25 00:15
BUN 24 H Cancelled 25 H
Creatinine 0.6 L Cancelled 0.7
Estimated Creat Clear Cancelled 98
Albumin Cancelled Cancelled 4.4
08/20/24
03:20
BUN 22 H
Creatinine 0.5 L
Estimated Creat Clear 115
Albumin 3.7
08/19/24 08/20/24 08/20/24
23:00 00:45 03:20
Lactic Acid 4.0 H* Cancelled 1.8
08/20/24
06:45
Lactic Acid Cancelled
Microbiology Results
08/19/24 23:25 Influenza Types A & B (LUIS) - Final
Nasal Swab Negative for Influenza A & B, NAAT
Negative results must be combined with clinical observations
and patient history.
Nucleic Acid Amplification test (NAAT)performed on the
[employer] platform.
--- NOTE | 2024-08-20 10:07 | W.PN.UPDATE ---
Update Note
Progress Note Update
Seen and examined independent of pulmonary physician.
Patient is awake alert and following commands. Remains on high flow nasal cannula.
General: Well Nourished, No Apparent Distress and Comfortable
HEENT: NormoCephalic, Anicteric and Moist mucous membranes
Respiratory: Decreased breath sounds, on high flow nasal cannula
Cardiac: S1/S2 and Regular Rhythm; No Tachycardia
GI: Soft, Non Tender, Non Distended and Peg Tube
Genito-urinary: No costovertebral tender
Musculoskeletal: No Clubbing, No Cyanosis and No Edema
Skin: Warm; No Dry, Rash or Jaundice
Neuro: Awake, Alert and Oriented
Psych: Calm
#LLL probably aspiration pneumonia
#Sepsis with hypotension
#Leukocytosis
#Lactic acidosis
WBC normalized
COVID and influenza negative
Lactic acidosis resolved
Follow-up on the blood culture data
De-escalate antibiotic based on culture in the next 24 hours
MRSA screen pending. If negative DC vancomycin
Continue with Zosyn and vancomycin for now
# Acute hypoxic respiratory failure
Off BiPAP and remains on high flow nasal cannula with 60% FiO2
Wean oxygen as tolerated
Chest x-ray noted with pulmonary edema. Blood pressure too soft for diuresis
Hold IV fluids
Antibiotics as above
proBNP of 125
Pulmonary consultation
#nausea/vomiting
abd benign
possibly 2/2 large tube feeds or 2/[address] cosult for tube feeds
follow LFT
#Iatrogenic adrenal insufficiency
On high-dose Decadron started on admission. De-escalate in the next 24 hours.
#Hypothyroidism
Continue with Synthroid
#Mild thrombocytopenia
Likely secondary to sepsis
Monitor for now
#Essential HTN
#CAD s/p CABG
restart toprol when BP improves
#parkinsons disease with dysphagia
cont home meds
Nutrition eval for tube feeding
DVT ppx hep
DNR/DNI - discussed with patient and bedside
--- NOTE | 2024-08-20 10:53 | PTCARENOTE ---
Pt co of 9/10 pain in back and at hernia site. Oxicodone now BID prn given to pt via tube
--- NOTE | 2024-08-20 10:58 | PTCARENOTE ---
Dr patel tt that oxicodone given early
--- NOTE | 2024-08-20 11:39 | PTCARENOTE ---
Looking at [facility] Roxicodone was sc anned under HS PRN not BID prn.
--- NOTE | 2024-08-20 11:41 | PTCARENOTE ---
Pharmacy aware of Roxicodone scan error
--- NOTE | 2024-08-20 11:50 | PTCARENOTE ---
Pt now on 6l O2 weaned from HF
--- NOTE | 2024-08-20 11:58 | CM ---
Addendum entered by Valeriano Antonio 08/20/24 12:08:
[facility] provides Jevity.
Original Note:
Initial assessment completed with patient and who live in a 2 story home plus basement with B/B on and 1/2 bath on , 2 steps to enter. 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 Patient has peg tube and administers
Jevity bolus feeds TID. No other DME, no in-home services. Does have a HC-POA. PCP is Dr. Jigar Chopra and Pharmacy is [facility] in [place]. Discharge POC: Anticipate home with NN vs HH RN.
[2024-08-20] MEDS: VANCOCIN 275 MG IV (17:21)
[2024-08-20] MEDS: PREVACID 15 MG TUBE (22:46)
[2024-08-21] VITALS (14 sets, daily range): BP systolic 103–139; BP diastolic 58–90; PULSE 77; O2SAT 96
[2024-08-21] MEDS: ZOSYN 50 IV ×4 (05:20→23:28)
[2024-08-21] MEDS: SYNTHROID 50 MCG TUBE (05:20)
[2024-08-21] MEDS: ROXICODONE ORAL SOLUTION 5 MG TUBE ×2 (05:31→23:28)
[2024-08-21 05:37] LABS: Hematocrit 38.3 % (39.0-52.0); Hemoglobin 13.2 g/dL (13.0-18.0); Mean Corp Hgb Conc. 34.5 g/dL (33.0-37.0); Mean Corpuscular Volume 97.0 fL (80.0-94.0); Nucleated Red Blood Cells % 0 % (-); Platelet Count 125 10^3/uL (130-400); Red Cell Dist. Width 12.0 % (11.5-14.5)
[2024-08-21 06:15] LABS: ALT (SGPT) < 10 U/L (0-50); AST (SGOT) 28 U/L (17-59); Albumin 3.9 g/dl (3.5-5.0); Alkaline Phosphatase 60 U/L (38-126); Blood Urea Nitrogen 20 mg/dl (9-20); Calcium 9.1 mg/dl (8.4-10.2); Carbon Dioxide 26 mmol/L (22-30); Chloride 106 mmol/L (98-107); Estimated Creatinine Clearance 115 ml/min; Glucose 123 mg/dl (70-99); Magnesium 2.0 mg/dl (1.6-2.3); Potassium 4.4 mmol/L (3.5-5.1); Sodium 139 mmol/L (135-145); Total Protein 6.3 g/dl (6.3-8.2); eGFR > 60.00
--- NOTE | 2024-08-21 06:42 | PTCARENOTE ---
Assumed care of pt from maxwell PADILLA. Pt is aaox3. NSR on monitor. Pt's SpO2 94% on 1L NC. OTONIEL medications administered via PEG tube (see MAR). 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 Pt resting in bed with call trujillo in reach.
--- NOTE | 2024-08-21 09:17 | W.PN.PUL3 ---
Today's Communication / Plan
-
Given he is wheezing bilaterally, start scheduled DuoNeb
Continue with Decadron, weaning as he clinically improves
Aspiration precautions
Resume tube feeds
Antibiotics
PT/OT
Wean down supplemental O2 as tolerated
Pulmonary service will continue to follow along
Assessment
-
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
(11/03), PMR, PVD, chronic pleural plaques and history of flu A (March 07) who presents with worsening SOB + fever. He had vomited several times prior to arrival. In triage he was saturating 60% on room air. Saturations improved to the low�mid
90s on CPAP, and then he was transition to high flow nasal cannula. Of note, he is DNR/DNI. He also was initially afebrile with initial heart rate 126, respiratory rate 23 and initial BP 147/113. Initial labs pertinent for leukocytosis to 15.3,
Hb 15.7, platelet count 164, lactate 4.0, troponin negative at <0.012, proBNP WNL at 125, and COVID-19 antigen negative. Flu swab was also negative. Blood cultures collected. CXR showed mild acute interstitial pulmonary edema with a small chronic
left-sided pleural effusion and a large chronic airspace consolidation in the left lower lobe with superimposed pneumonia difficult to exclude. In the ER he was given IVF with total of 2.3 L NS 0.9%, 6 mg Decadron, DuoNebs, Zofran, Unasyn and
vancomycin. Given his high oxygen requirements, he was admitted to the IMU, and Pulmonary service consulted for additional management/recommendations.
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
COVID-19 (10/2022), skin cancer, history of yeast infection, PMR, Parkinson disease, history of influenza A (February 2024), chronic pleural plaques
Impression:
#Community-acquired pneumonia involving left lower lobe (suspected to be due to aspiration in the setting of vomiting x 2 prior to arrival)
#Sepsis due to above without shock
#Acute respiratory failure with hypoxia due to above (not on home O2)
#Thrombocytopenia due to sepsis from pneumonia
#Lactic acidosis � resolved
#Chronic cough likely due to upper airway cough syndrome (uses azelastine as outpatient)
#Chronic hyperbilirubinemia
#Chronic left lower lobe consolidation with loculated pleural effusion
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
#Dysphagia s/p PEG
#Parkinson disease
Plan:
- Although patient has been on high flow nasal cannula overnight on 08/20, he is now weaned down to 1L/min NC (was on 6 L/min on 08/20) and breathing comfortably
- Of note, he is DNR/DNI
- Continue broad-spectrum antibiotics, currently with Zosyn
- MRSA swab is negative --> IV vanco DC'd
- Follow-up blood cultures x 2 (collected 08/19); check sputum culture if patient can produce a decent sample; check urine antigens for Legionella + strep pneumonia
- Considering his severe CAP, continue with systemic steroids with Decadron --> lowered from 6 mg IV q12hr to 4mg IV q12hr; continue weaning as he clinically improves
- Maintain euglycemia while on high-dose steroids, with goal BG >100 and <180mg/dL
- Continue aspiration precautions
- Ok to resume tube feeds as tolerated, increasing slowly towards goal
- Continue with Sinemet 25�100 (per the patient, since this was started he has been extremely fatigued, and increased somnolence is one of the adverse effects from this medication per up-to-date)
- Maintain SpO2 >90-94% with supplemental O2, weaning down as tolerated
- Considering he is wheezing, start scheduled DuoNebs
- prn nebulized bronchodilators
- Incentive spirometer encouraged q1hr while awake
- Replete electrolytes with K>4, Mg>2
- Trend H/H and transfuse if needed to keep Hb>7g/dL; keep plt>20k, unless there is concern for bleeding then keep plt>50k
- Continue omeprazole (although he takes this medication as needed - -> given his vomiting prior to arrival, would continue this now once daily)
- DVT ppx: HSQ
Pulmonary service will continue to follow along. Recommend continued outpatient pulmonary office follow-up after discharge, as last visit was with Dr. Albright on 11/06/2023.
Data:
CXR 08/19/2024:
1. Mild acute interstitial cardiogenic pulmonary edema.
2. Small chronic left pleural effusion.
3. Large chronic airspace consolidation in the basilar left lower lobe (probably chronic atelectasis and scarring, although superimposed pneumonia is also possible if there are signs/symptoms of pulmonary infection).
4. Chronic asbestos exposure with calcified pleural plaques in both hemithoraces.
5. Previous CABG surgery.
Total time spent today was 37 minutes for this encounter. Time includes reviewing laboratory test/imaging results, reviewing pertinent medical records, obtaining and reviewing medical history, performing an appropriate exam, ordering medications,
tests and procedures. Time also includes documentation of this encounter, coordinating patient care and communicating with other healthcare professionals. Total time does not include separately billed tests performed on this date of service.
Subjective Data
-
Date of Service:
Date of Service: August 21, 2024
Chief Complaint: Pulmonary Follow Up
Subjective:
Patient seen and evaluated this morning. Patient's , Therese, present at bedside. Patient currently on 1 L/min nasal cannula breathing comfortably. Still feels short of breath. Has a cough which she says is chronic. At home, he uses xylazine
nasal spray twice a day. He currently denies chest pain, LOCKE, nausea, fevers or chills. Afebrile overnight.
Review of Systems
General: Other (Negative unless mentioned above)
Objective Data
Data Reviewed
Vital Signs / I&O / Oxygen:
Vital Signs
Temp Pulse Resp BP Pulse Ox
97.4 F 75 22 132/87 97
08/21/24 08:35 08/21/24 08:00 08/21/24 08:00 08/21/24 08:00 08/21/24 08:00
Intake and Output
08/20/24 08/21/24 08/22/24
06:59 06:59 06:59
Intake Total 350 / 350
Output Total 200 / 200 1700 / 1700
Balance -200 / -200 -1350 / -1350
SaO2 97
Nasal Cannula flow liters per 2
minute
Physical Exam
General: Respiratory Distress (negative), Comfortable, Chills (negative) and Sweats (negative)
HEENT: Normocephalic and Anicteric
Cardiovascular: S1-S2 and Peripheral Edema (negative)
Respiratory: Wheeze (Rosebud upon expiration bilaterally), Crackles (Bilaterally (L >R)), Rhonchi (negative), Non-Labored Respirations and Stridor (negative)
GI: Soft, Non Distended, Non Tender, Normal Bowel Sounds and Feeding Tube
Neurology: AO x 3 and Tremors (negative)
Skin: Warm, Dry, Cyanosis (negative) and Jaundice (negative)
Labs/Micro/Reports
Lab Data
08/21/24 05:17
08/21/24 05:17
Microbiology
08/19/24 23:05 Blood/Venous Blood Culture - Preliminary
No Growth in 24 hours- Final report to follow
08/19/24 23:00 Blood/Venous Blood Culture - Preliminary
No Growth in 24 hours- Final report to follow
08/20/24 09:59 Nose Nasal Screen MRSA (PCR) - Final
MRSA not detected - performed by PCR methodology.
08/19/24 23:25 Nasal Swab Influenza Types A & B (LUIS) - Final
Negative for Influenza A & B, NAAT
Negative results must be combined with clinical observations
and patient history.
Nucleic Acid Amplification test (NAAT)performed on the
[employer] platform.
[2024-08-21] MEDS: LOW STRENGTH ASPIRIN 81 MG TUBE (09:27)
[2024-08-21] MEDS: SINEMET 25-100 1.5 TABLET TUBE ×3 (09:27→21:11)
[2024-08-21] MEDS: PREVACID 15 MG TUBE (09:29)
[2024-08-21] MEDS: HEPARIN 5000 UNITS SC ×3 (09:29→23:28)
--- NOTE | 2024-08-21 11:05 | PTCARENOTE ---
Order received to start tube feeds. TF initiated. Pt and educated on plan of care and advancing to goal. Verbalizes understanding.
--- NOTE | 2024-08-21 11:20 | W.PN.HOSP.TC ---
Addendum entered and electronically signed by Stew Galicia MD 08/21/24 13:56:
Unclear acuity of pulmonary edema
Original Note:
Today's Communication/Plan
-
Restart tube feeds and monitor
Decrease Decadron dose
Wean oxygen as tolerated
DC vancomycin
Continue with Zosyn
PT eval
Transfer out of IMU
Assessment / Plan
Assessment / Plan
General: Well Nourished, No Apparent Distress and Comfortable
HEENT: NormoCephalic, Anicteric and Moist mucous membranes
Respiratory: Decreased breath sounds, NC
Cardiac: S1/S2 and Regular Rhythm; No Tachycardia
GI: Soft, Non Tender, Non Distended and Peg Tube
Genito-urinary: No costovertebral tender
Musculoskeletal: No Clubbing, No Cyanosis and No Edema
Skin: Warm; No Dry, Rash or Jaundice
Neuro: Awake, Alert and Oriented
Psych: Calm
#LLL probably aspiration pneumonia
#Sepsis with hypotension
#Leukocytosis
#Lactic acidosis
COVID and influenza negative
Lactic acidosis resolved
Follow-up on the blood culture data and remains negative
MRSA screen negative. DC vancomycin
Continue with Zosyn
Bump in leukocytosis down likely secondary to steroids
# Acute hypoxic respiratory failure
Off BiPAP and high flow nasal cannula. Oxygenation significantly improved
Wean oxygen as tolerated
Chest x-ray noted with pulmonary edema. Blood pressure too soft for diuresis
Antibiotics as above
proBNP of 125
Pulmonary consultation
#nausea/vomiting
possibly 2/2 large tube feeds or 2/2 fever
tube feeds restarted. Slowly uptitrate
follow LFT
#Iatrogenic adrenal insufficiency
On high-dose Decadron started on admission.
Decrease dose of 4 mg every 12 and slowly down titrate.
#Hypothyroidism
Continue with Synthroid
#Mild thrombocytopenia
Likely secondary to sepsis
Monitor for now
Improving
#Essential HTN
#CAD s/p CABG
restart toprol when BP improves
#parkinsons disease with dysphagia
cont home meds
DVT ppx hep
DNR/DNI -
Anticipated Discharge: > 48 hours
Subjective/Interval History
-
Date of Service: August 21, 2024
Denies any nausea or vomiting
Significant improvement in oxygenation
Objective Data
-
Labs:
Laboratory Results
08/21/24
05:17
WBC 11.1 H
Hgb 13.2
Hct 38.3 L
Plt Count 125 L
Sodium 139
Potassium 4.4
Chloride 106
Carbon Dioxide 26
BUN 20
Creatinine 0.5 L
Glucose 123 H
Calcium 9.1
Total Bilirubin 1.8 H
AST 28
ALT < 10
Alkaline Phosphatase 60
Vital Signs:
Vital Signs
Temp Pulse Resp BP Pulse Ox
97.4 F 74 24 122/74 96
08/21/24 08:35 08/21/24 10:05 08/21/24 10:05 08/21/24 10:05 08/21/24 10:05
I&O
08/20/24 08/21/24 08/22/24
06:59 06:59 06:59
Intake Total 350 / 350
Output Total 200 / 200 1700 / 1700
Balance -200 / -200 -1350 / -1350
Data Reviewed
-
Total Time Spent with Patient (in minutes): 55
[2024-08-21] MEDS: DECADRON 4 MG IV ×2 (11:39→21:11)
[2024-08-21] MEDS: DECADRON IV (11:47)
--- NOTE | 2024-08-21 13:40 | PN.CDI ---
CDI
- -
CDI:
Physician Documentation Request
Admit Date: 08/20/24 02:28
Dear Doctor Grayson,
Please review the following and provide your response in the progress notes.
Clinical Indicators:
Pt admitted with Sepsis 2/2 Aspiration PNA /Acute Hypoxic Respiratory Failure
Progress note 08/21, ' Acute hypoxic respiratory failure...Chest x-ray noted with pulmonary edema. Blood pressure too soft for diuresis...'
Clarify which of the following accurately represents the acuity of the ( Pulmonary Edema )
Acute
Chronic
Other ( please specify)
Use of terms such as suspected, likely, concern for, or probable (associated with a specific diagnosis that is being evaluated, monitored, or treated as if it exists) are acceptable and can be coded in the inpatient setting, when documented at the
time of discharge.
Thank you,
Kathleen Villagomez RN
CDI Specialist
[facility]
Please use your independent medical judgment in providing your response.
--- NOTE | 2024-08-21 16:27 | PTCARENOTE ---
Pt downgraded to tele. Report to receiving RN. Belongings collected from room. Transported to [facility] via stretcher. updated via phone.
--- NOTE | 2024-08-21 17:00 | PTCARENOTE ---
Received patient from IMU. AAOx3, ambulated with assistance to bed. Assessed and oriented to room. No complaints at present time. case monitor reading NSR. Call trujillo in close reach.
[2024-08-21] MEDS: DUONEB 3 ML INH (20:06)
[2024-08-22 03:07] VITALS: BP 111/76
[2024-08-22] MEDS: ZOSYN 50 IV (04:53)
[2024-08-22] MEDS: SYNTHROID 50 MCG TUBE (04:53)
[2024-08-22] MEDS: DUONEB 3 ML INH ×4 (07:33→18:28)
[2024-08-22 07:40] VITALS: BP 138/79
[2024-08-22] MEDS: SINEMET 25-100 1.5 TABLET TUBE ×3 (07:47→20:20)
[2024-08-22 07:48] LABS: Hematocrit 38.4 % (39.0-52.0); Hemoglobin 12.9 g/dL (13.0-18.0); Mean Corp Hgb Conc. 33.6 g/dL (33.0-37.0); Mean Corpuscular Volume 97.7 fL (80.0-94.0); Nucleated Red Blood Cells % 0 % (-); Platelet Count 136 10^3/uL (130-400); Red Cell Dist. Width 12.1 % (11.5-14.5)
[2024-08-22] MEDS: PREVACID 15 MG TUBE (07:48)
[2024-08-22] MEDS: HEPARIN 5000 UNITS SC ×3 (07:48→22:57)
[2024-08-22] MEDS: LOW STRENGTH ASPIRIN 81 MG TUBE (07:48)
[2024-08-22 08:11] LABS: ALT (SGPT) 15 U/L (0-50); AST (SGOT) 26 U/L (17-59); Albumin 3.7 g/dl (3.5-5.0); Alkaline Phosphatase 53 U/L (38-126); Blood Urea Nitrogen 23 mg/dl (9-20); Calcium 9.4 mg/dl (8.4-10.2); Carbon Dioxide 30 mmol/L (22-30); Chloride 105 mmol/L (98-107); Estimated Creatinine Clearance 115 ml/min; Glucose 145 mg/dl (70-99); Potassium 4.0 mmol/L (3.5-5.1); Sodium 139 mmol/L (135-145); Total Protein 6.0 g/dl (6.3-8.2); eGFR > 60.00
--- NOTE | 2024-08-22 08:27 | W.PN.HOSP.TC ---
Today's Communication/Plan
-
abx de-escalated to unasyn
PT/OT
steroids
nebulizer therapy
Assessment / Plan
Assessment / Plan
Physical
General: No acute distress, appears comfortable at this time
HEENT: NormoCephalic, Anicteric and Moist mucous membranes
Respiratory: Clear to auscultation b/l, stable respiratory status on room air.
Cardiac: S1/S2 and Regular Rhythm; No Tachycardia
GI: Soft, Non Tender, Non Distended and Peg Tube
Genito-urinary: No costovertebral tender
Musculoskeletal: No Clubbing, No Cyanosis and No Edema
Skin: Warm; No Dry, Rash or Jaundice
Neuro: AOx3 conversant coherent
Psych: Calm
74M Parkinson Esophageal Ca PEG Hypothyroidism GERD HTN here for LLL aspiration pna
#LLL probably aspiration pneumonia
#Sepsis with hypotension
#Leukocytosis
#Lactic acidosis
COVID and influenza negative
Lactic acidosis resolved
Follow-up on the blood culture data and remains negative
MRSA screen negative. DC vancomycin
Zosyn de-escalated to unasyn with clinical improvement
# Acute hypoxic respiratory failure
Off BiPAP and high flow nasal cannula. Oxygenation significantly improved
Weaned off oxygen supplementation
Chest x-ray noted with pulmonary edema. Blood pressure too soft for diuresis. patient otherwise since improved w/o need for diuresis
Antibiotics as above
proBNP of 125
Incentive Spirometer
Pulmonary consultation appreciated
#nausea/vomiting
possibly 2/2 large tube feeds or 2/2 fever
tube feeds restarted. Slowly uptitrate, tolerating
#Iatrogenic adrenal insufficiency
Eventual taper steroids to home dose
#Hypothyroidism
Continue with Synthroid
#Mild thrombocytopenia
Likely secondary to sepsis
resolved
#Essential HTN
#CAD s/p CABG
restart toprol when BP improves
#Parkinson's disease with dysphagia
cont home meds
DVT ppx hep
DNR/DNI -
Discussed with patient and patient's Rashmi.
I spent a total of 50 minutes with the patient or on the floor. More than 50% of this time involved counseling and coordination of care.
Anticipated Discharge: 24 - 48 hours
Subjective/Interval History
-
Date of Service: August 22, 2024
No acute distress, sitting up comfortably in chair. Overall reports feeling well. Denies new acute issues. Stable respiratory status on room air.
Objective Data
-
Labs:
Laboratory Results
08/22/24
07:19
WBC 9.7
Hgb 12.9 L
Hct 38.4 L
Plt Count 136
Sodium 139
Potassium 4.0
Chloride 105
Carbon Dioxide 30
BUN 23 H
Creatinine 0.6 L
Glucose 145 H
Calcium 9.4
Total Bilirubin 1.0
AST 26
ALT 15
Alkaline Phosphatase 53
Vital Signs:
Vital Signs
Temp Pulse Resp BP Pulse Ox
97.9 F 74 19 111/76 94
08/22/24 03:07 08/22/24 07:39 08/22/24 07:39 08/22/24 03:07 08/22/24 07:39
I&O
08/21/24 08/22/24 08/23/24
06:59 06:59 06:59
Intake Total 350 / 350 895 / 895
Output Total 1700 / 1700 600 / 600
Balance -1350 / -1350 295 / 295
[2024-08-22] MEDS: DECADRON 4 MG IV ×2 (09:34→20:20)
[2024-08-22 11:25] VITALS: BP 121/81
[2024-08-22] MEDS: UNASYN IV ×3 (12:21→22:58)
[2024-08-22 15:30] VITALS: BP 136/87
--- NOTE | 2024-08-22 16:37 | W.PN.PUL3 ---
Today's Communication / Plan
-
Add Acapella
Continue IS, aspiration precautions, nebulized therapy
Antibiotics continue
Consider transition to oral steroids in the next 24 hours. Patient on chronic low-dose steroid as outpatient
Assessment
-
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
(11/03), PMR, PVD, chronic pleural plaques and history of flu A (March 07) who presents with worsening SOB + fever. He had vomited several times prior to arrival. In triage he was saturating 60% on room air. Saturations improved to the low�mid
90s on CPAP, and then he was transition to high flow nasal cannula. Of note, he is DNR/DNI. He also was initially afebrile with initial heart rate 126, respiratory rate 23 and initial BP 147/113. Initial labs pertinent for leukocytosis to 15.3,
Hb 15.7, platelet count 164, lactate 4.0, troponin negative at <0.012, proBNP WNL at 125, and COVID-19 antigen negative. Flu swab was also negative. Blood cultures collected. CXR showed mild acute interstitial pulmonary edema with a small chronic
left-sided pleural effusion and a large chronic airspace consolidation in the left lower lobe with superimposed pneumonia difficult to exclude. In the ER he was given IVF with total of 2.3 L NS 0.9%, 6 mg Decadron, DuoNebs, Zofran, Unasyn and
vancomycin. Given his high oxygen requirements, he was admitted to the IMU, and Pulmonary service consulted for additional management/recommendations.
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
COVID-19 (10/2022), skin cancer, history of yeast infection, PMR, Parkinson disease, history of influenza A (February 2024), chronic pleural plaques
Impression:
#Community-acquired pneumonia involving left lower lobe (suspected to be due to aspiration in the setting of vomiting x 2 prior to arrival)
#Sepsis due to above without shock
#Acute respiratory failure with hypoxia due to above (not on home O2)
#Thrombocytopenia due to sepsis from pneumonia
#Lactic acidosis � resolved
#Chronic cough likely due to upper airway cough syndrome (uses azelastine as outpatient)
#Chronic hyperbilirubinemia
#Chronic left lower lobe consolidation with loculated pleural effusion
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
#Dysphagia s/p PEG
#Parkinson disease
Plan/recommendations:
At this time, patient feels improved significantly
Patient primary complaining of postnasal drip
Reviewed importance of airway clearance
Adequate cough
Chest exam improved
Moving forward
Continue with Unasyn therapy
Airway clearance will be crucial
Reviewed potential benefit of empiric cough
We will try Acapella
Head of bed elevated, aspiration precautions
Continue tube feeds
DVT ppx: HSQ
Pulmonary service will continue to follow along. Recommend continued outpatient pulmonary office follow-up after discharge, as last visit was with Dr. Albright on 11/06/2023.
Data:
CXR 08/19/2024:
1. Mild acute interstitial cardiogenic pulmonary edema.
2. Small chronic left pleural effusion.
3. Large chronic airspace consolidation in the basilar left lower lobe (probably chronic atelectasis and scarring, although superimposed pneumonia is also possible if there are signs/symptoms of pulmonary infection).
4. Chronic asbestos exposure with calcified pleural plaques in both hemithoraces.
5. Previous CABG surgery.
Total time spent today was 37 minutes for this encounter. Time includes reviewing laboratory test/imaging results, reviewing pertinent medical records, obtaining and reviewing medical history, performing an appropriate exam, ordering medications,
tests and procedures. Time also includes documentation of this encounter, coordinating patient care and communicating with other healthcare professionals. Total time does not include separately billed tests performed on this date of service.
Subjective Data
-
Date of Service:
Date of Service: August 22, 2024
Chief Complaint: Pulmonary Follow Up
Subjective:
Patient examined earlier this morning. Patient continues to have cough, primary complaint is postnasal drip. Otherwise feels breathing has improved since admission
Objective Data
Data Reviewed
Vital Signs / I&O / Oxygen:
Vital Signs
Temp Pulse Resp BP Pulse Ox
98.3 F 75 16 136/87 96
08/22/24 15:30 08/22/24 15:30 08/22/24 15:30 08/22/24 15:30 08/22/24 15:30
Intake and Output
08/21/24 08/22/24 08/23/24
06:59 06:59 06:59
Intake Total 350 / 350 895 / 895
Output Total 1700 / 1700 600 / 600
Balance -1350 / -1350 295 / 295
SaO2 96
Nasal Cannula flow liters per 1
minute
Physical Exam
General: Comfortable and Other (Hoarse voice)
HEENT: Normocephalic and Anicteric
Cardiovascular: S1-S2, Regular Rhythm, Murmur (n) and Peripheral Edema (negative)
Respiratory: Wheeze (n), Crackles (Mild bibasilar), Rhonchi (Few with cough), Non-Labored Respirations and Stridor (negative)
GI: Soft, Non Distended, Non Tender, Normal Bowel Sounds and Feeding Tube
Neurology: Awake, Alert and No Motor Deficits (Generally weak)
Skin: Warm, Dry, Cyanosis (negative) and Jaundice (negative)
Labs/Micro/Reports
Lab Data
08/22/24 07:19
08/22/24 07:19
Microbiology
08/19/24 23:05 Blood/Venous Blood Culture - Preliminary
No Growth in 48 hours- Final report to follow
08/19/24 23:00 Blood/Venous Blood Culture - Preliminary
No Growth in 48 hours- Final report to follow
08/20/24 09:59 Nose Nasal Screen MRSA (PCR) - Final
MRSA not detected - performed by PCR methodology.
08/19/24 23:25 Nasal Swab Influenza Types A & B (LUIS) - Final
Negative for Influenza A & B, NAAT
Negative results must be combined with clinical observations
and patient history.
Nucleic Acid Amplification test (NAAT)performed on the
[employer] platform.
[2024-08-22 19:18] VITALS: BP 118/79
[2024-08-22] MEDS: ROXICODONE ORAL SOLUTION 5 MG TUBE (21:38)
[2024-08-22] MEDS: NON-FORMULARY ITEM NASAL ×2 (22:57)
[2024-08-22 23:17] VITALS: BP 151/57
[2024-08-23] MEDS: ROXICODONE ORAL SOLUTION 5 MG TUBE (02:09)
[2024-08-23 03:32] VITALS: BP 150/99
[2024-08-23] MEDS: SYNTHROID 50 MCG TUBE (04:57)
[2024-08-23] MEDS: UNASYN IV (04:57)
[2024-08-23 07:05] LABS: Hematocrit 40.0 % (39.0-52.0); Hemoglobin 13.8 g/dL (13.0-18.0); Mean Corp Hgb Conc. 34.5 g/dL (33.0-37.0); Mean Corpuscular Volume 98.8 fL (80.0-94.0); Platelet Count 144 10^3/uL (130-400); Red Cell Dist. Width 12.2 % (11.5-14.5)
[2024-08-23 07:27] LABS: Blood Urea Nitrogen 20 mg/dl (9-20); Calcium 9.3 mg/dl (8.4-10.2); Carbon Dioxide 30 mmol/L (22-30); Chloride 104 mmol/L (98-107); Estimated Creatinine Clearance 115 ml/min; Glucose 90 mg/dl (70-99); Magnesium 2.0 mg/dl (1.6-2.3); Potassium 3.5 mmol/L (3.5-5.1); Sodium 143 mmol/L (135-145); eGFR > 60.00
[2024-08-23 07:30] VITALS: BP 148/86
--- NOTE | 2024-08-23 08:00 | W.PN.HOSP.TC ---
Today's Communication/Plan
-
discharge
Assessment / Plan
Assessment / Plan
Physical
General: No acute distress, appears comfortable at this time
HEENT: NormoCephalic, Anicteric and Moist mucous membranes
Respiratory: Clear to auscultation b/l, stable respiratory status on room air.
Cardiac: S1/S2 and Regular Rhythm; No Tachycardia
GI: Soft, Non Tender, Non Distended and Peg Tube
Genito-urinary: No costovertebral tender
Musculoskeletal: No Clubbing, No Cyanosis and No Edema
Skin: Warm; No Dry, Rash or Jaundice
Neuro: AOx3 conversant coherent
Psych: Calm
74M Parkinson Esophageal Ca PEG Hypothyroidism GERD HTN here for LLL aspiration pna
#LLL probably aspiration pneumonia
#Sepsis with hypotension
#Leukocytosis
#Lactic acidosis
COVID and influenza negative
Lactic acidosis resolved
Follow-up on the blood culture data and remains negative
MRSA screen negative. DC vancomycin
Zosyn de-escalated to unasyn with clinical improvement, further de-escalated to Augmentin planned for additional 5 days on discharge.
# Acute hypoxic respiratory failure
Off BiPAP and high flow nasal cannula. Oxygenation significantly improved
Weaned off oxygen supplementation
Chest x-ray noted with pulmonary edema. Blood pressure too soft for diuresis. patient otherwise since improved w/o need for diuresis
Antibiotics as above
proBNP of 125
Incentive Spirometer
Pulmonary consultation appreciated
#nausea/vomiting
possibly 2/2 large tube feeds or 2/2 fever
tube feeds restarted. Slowly uptitrate, tolerating
#Iatrogenic adrenal insufficiency
stress IV steroids tapered to prednisone 40 mg daily, short taper planned, reduce dose by 10 mg each day till complete then resume home prior chronic steroid dose 2 mg daily
#Hypothyroidism
Continue with Synthroid
#Mild thrombocytopenia
Likely secondary to sepsis
resolved
#Essential HTN
#CAD s/p CABG
Home Metoprolol resumed
#Parkinson's disease with dysphagia
cont home meds
PT/OT appreciated outpatient therapy script provided to facilitate
DVT ppx hep
DNR/DNI -
Medically stable for discharge home with outpatient follow up recommendations.
Discussed with patient and patient's Rashmi.
Total Time Preparing Discharge __40 minutes including examination of the patient, summary of the hospital stay, instructions for continuing care to all relevant caregivers; and preparation of discharge records, prescriptions, and referral
forms if necessary.
Anticipated Discharge: Today
Subjective/Interval History
-
Date of Service: August 23, 2024
Seen and examined at bedside in no acute distress. Reports overall feeling well. Denies new acute issues. Ambulating without need for assist device.
Objective Data
-
Labs:
Laboratory Results
08/23/24
06:30
WBC 9.7
Hgb 13.8
Hct 40.0
Plt Count 144
Sodium 143
Potassium 3.5
Chloride 104
Carbon Dioxide 30
BUN 20
Creatinine 0.5 L
Glucose 90
Calcium 9.3
Vital Signs:
Vital Signs
Temp Pulse Resp BP Pulse Ox
98.3 F 81 18 150/99 93
08/23/24 03:32 08/23/24 03:32 08/23/24 03:32 08/23/24 03:32 08/23/24 03:32
I&O
08/22/24 08/23/24 08/24/24
06:59 06:59 06:59
Intake Total 895 / 895 1080 / 1080
Output Total 600 / 600 350 / 350
Balance 295 / 295 730 / 730
[2024-08-23] MEDS: NON-FORMULARY ITEM 2 SPRAY NASAL (08:56)
[2024-08-23] MEDS: LOPRESSOR 12.5 MG TUBE (08:56)
[2024-08-23] MEDS: HEPARIN 5000 UNITS SC (08:59)
[2024-08-23] MEDS: SINEMET 25-100 1.5 TABLET TUBE (08:59)
[2024-08-23] MEDS: DELTASONE 40 MG TUBE (09:00)
[2024-08-23] MEDS: LOW STRENGTH ASPIRIN 81 MG TUBE (09:01)
[2024-08-23] MEDS: PREVACID TUBE (09:02)
[2024-08-23 11:15] VITALS: BP 152/95
[2024-08-23] MEDS: AUGMENTIN 200 MG/5 ML 875 MG TUBE (12:31)
--- NOTE | 2024-08-23 13:02 | W.DCSUMMARY ---
Discharge Summary
Discharge Data
Date of Admission: 08/20/24
Date of Discharge: 08/23/24
-
Pending Results: No
Discharge Plan
-
Patient Disposition: Home (Routine Discharge)
Discharge Diagnosis/Procedures: Sepsis due to Left Lower Lobe Aspiration Pneumonia
Acute hypoxic respiratory failure
Adrenal Insufficiency
Hypothyroidism
Parkinson
Condition: Fair
Diet: Tube feeding
Activity: As tolerated
Driving Restrictions: As prior to admission
Blood Work: Repeat CBC and BMP with primary care provider in 1 week of discharge
Others Tests: repeat Chest X-ray with primary care provider in 1 month of discharge.
Other Services: PT and OT
Activity Restrictions/Additional Instructions:
Please follow up with primary care provider in 1 week of discharge, keep your appointment with Rheumatology, and follow up with Pulmonology in 2-3 weeks of discharge.
Ventolin inhaler prescribed as needed for shortness of breath/wheezing.
Augmentin prescribed for pneumonia, 5 more days of treatment.
A short steroid taper prescribed to wean off stress dose steroids used to treat sepsis during your stay.
Please take medications as prescribed/recommended and follow up with primary care provider and/or other healthcare provider involved in your care for further adjustments to your medication regimen as necessary.
Referrals:
Candido Gupta MD [Active, Pulmonary Medicine] - in two to three weeks
Referral Note: follow up lung issues post hosp stay
Jigar Chopra DO [Family Provider, Family Practice] - in one week
Prescriptions:
New
albuterol sulfate [Ventolin HFA] 90 mcg/actuation HFA aerosol inhaler
2 puff inhalation Q6H PRN (Reason: shortness of breath or wheezing) Qty: 8.5 0RF
amoxicillin-pot clavulanate 200-28.5 mg/5 mL Suspension For Reconstitution
21.875 ml feeding tube BID 5 Days Qty: 218.75 0RF
prednisone 10 mg Tablet
See Rx Instructions .ROUTE .COMPLEX Qty: 6 0RF
Rx Instructions:
Take By Mouth:
30 mg daily x1 day, 20 mg daily x1 day,
10 mg daily x1 day, then stop
Continued
metoprolol tartrate 25 mg tablet
12.5 mg feeding tube BID
carbidopa-levodopa 25-100 mg Tablet
1.5 tab feeding tube TID
levothyroxine 50 mcg Tablet
50 mcg feeding tube DAILY
oxycodone 5 mg/5 mL Solution
5 mg feeding tube HSPRN PRN (Reason: mild pain/sleep)
omeprazole 20 mg Capsule,Delayed Release(Dr/Ec)
20 mg feeding tube DAILYPRN PRN (Reason: gerd)
azelastine 137 mcg (0.1 %) [place],Non-Aerosol
2 spray INTRANASAL Q12H
acetaminophen 500 mg/15 mL Liquid
1,000 mg feeding tube DAILYPRN PRN (Reason: fever)
cholecalciferol (vitamin D3) 250 mcg (10,000 unit) Capsule
250 mcg feeding tube MOTUWETHFR
aspirin 81 mg Tablet,Delayed Release (Dr/Ec)
81 mg feeding tube DAILY Qty: 30 0RF
Held
prednisone 1 mg Tablet
2 mg feeding tube DAILY@1400
Hold Instructions: Resume when steroid taper completes
Discharge Orders:
Discharge Patient (As Directed); Ordered 08/23/24
Ordered By: Cayden Thomson
Discharge Date and Time
Print Language: ANGOLAN
--- NOTE | 2024-08-23 14:39 | W.PN.PUL3 ---
Today's Communication / Plan
-
Continue airway clearance measures
Aspiration cautions, have elevated
Pulmonary follow-up instructions left in chart
Disposition efforts
We will sign off. Please call with questions
Assessment
-
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
(11/03), PMR, PVD, chronic pleural plaques and history of flu A (March 07) who presents with worsening SOB + fever. He had vomited several times prior to arrival. In triage he was saturating 60% on room air. Saturations improved to the low�mid
90s on CPAP, and then he was transition to high flow nasal cannula. Of note, he is DNR/DNI. He also was initially afebrile with initial heart rate 126, respiratory rate 23 and initial BP 147/113. Initial labs pertinent for leukocytosis to 15.3,
Hb 15.7, platelet count 164, lactate 4.0, troponin negative at <0.012, proBNP WNL at 125, and COVID-19 antigen negative. Flu swab was also negative. Blood cultures collected. CXR showed mild acute interstitial pulmonary edema with a small chronic
left-sided pleural effusion and a large chronic airspace consolidation in the left lower lobe with superimposed pneumonia difficult to exclude. In the ER he was given IVF with total of 2.3 L NS 0.9%, 6 mg Decadron, DuoNebs, Zofran, Unasyn and
vancomycin. Given his high oxygen requirements, he was admitted to the IMU, and Pulmonary service consulted for additional management/recommendations.
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
COVID-19 (10/2022), skin cancer, history of yeast infection, PMR, Parkinson disease, history of influenza A (February 2024), chronic pleural plaques
Impression:
#Community-acquired pneumonia involving left lower lobe (suspected to be due to aspiration in the setting of vomiting x 2 prior to arrival)
#Sepsis due to above without shock
#Acute respiratory failure with hypoxia due to above (not on home O2)
#Thrombocytopenia due to sepsis from pneumonia
#Lactic acidosis � resolved
#Chronic cough likely due to upper airway cough syndrome (uses azelastine as outpatient)
#Chronic hyperbilirubinemia
#Chronic left lower lobe consolidation with loculated pleural effusion
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
#Dysphagia s/p PEG
#Parkinson disease
Plan/recommendations:
At this time, patient feels improved significantly
Patient primary complaining of postnasal drip
Reviewed importance of airway clearance
Adequate cough
Chest exam improved
He feels he is responding to aggressive airway clearance measures
Moving forward
Antibiotics per primary service
Airway clearance will be crucial
Reviewed potential benefit of empiric cough
Head of bed elevated, aspiration precautions
Continue tube feeds
DVT ppx: HSQ
Recommend pulmonary follow-up, information left in chart
Pulmonary service will continue to follow along. Recommend continued outpatient pulmonary office follow-up after discharge, as last visit was with Dr. Albright on 11/06/2023.
Disposition efforts
Data:
CXR 08/19/2024:
1. Mild acute interstitial cardiogenic pulmonary edema.
2. Small chronic left pleural effusion.
3. Large chronic airspace consolidation in the basilar left lower lobe (probably chronic atelectasis and scarring, although superimposed pneumonia is also possible if there are signs/symptoms of pulmonary infection).
4. Chronic asbestos exposure with calcified pleural plaques in both hemithoraces.
5. Previous CABG surgery.
Total time spent today was 37 minutes for this encounter. Time includes reviewing laboratory test/imaging results, reviewing pertinent medical records, obtaining and reviewing medical history, performing an appropriate exam, ordering medications,
tests and procedures. Time also includes documentation of this encounter, coordinating patient care and communicating with other healthcare professionals. Total time does not include separately billed tests performed on this date of service.
Subjective Data
-
Date of Service:
Date of Service: August 23, 2024
Chief Complaint: Pulmonary Follow Up
Subjective:
Patient evaluated earlier this morning. Appears to be comfortable, sitting in chair, on room air. Admits to successful airway clearance measures with productive cough
Objective Data
Data Reviewed
Vital Signs / I&O / Oxygen:
Vital Signs
Temp Pulse Resp BP Pulse Ox
97.4 F 70 16 152/95 94
08/23/24 11:15 08/23/24 11:15 08/23/24 11:15 08/23/24 11:15 08/23/24 12:03
Intake and Output
08/22/24 08/23/24 08/24/24
06:59 06:59 06:59
Intake Total 895 / 895 1080 / 1080
Output Total 600 / 600 350 / 350
Balance 295 / 295 730 / 730
SaO2 94
Nasal Cannula flow liters per 1
minute
Physical Exam
General: Comfortable and Other (Hoarse voice)
HEENT: Normocephalic and Anicteric
Cardiovascular: S1-S2, Regular Rhythm, Murmur (n) and Peripheral Edema (negative)
Respiratory: Wheeze (n), Crackles (Mild bibasilar), Rhonchi (Few with cough), Non-Labored Respirations and Stridor (negative)
GI: Soft, Non Distended, Non Tender, Normal Bowel Sounds and Feeding Tube
Neurology: Awake, Alert and No Motor Deficits (Generally weak)
Skin: Warm, Dry, Cyanosis (negative) and Jaundice (negative)
Labs/Micro/Reports
Lab Data
08/23/24 06:30
08/23/24 06:30
Microbiology
08/19/24 23:05 Blood/Venous Blood Culture - Preliminary
No Growth in 72 hours- Final report to follow
08/19/24 23:00 Blood/Venous Blood Culture - Preliminary
No Growth in 72 hours- Final report to follow
08/20/24 09:59 Nose Nasal Screen MRSA (PCR) - Final
MRSA not detected - performed by PCR methodology.
--- NOTE | 2024-08-23 15:26 | CM ---
Patient with Hx Parkinsons, Esophageal cancer, PEG tube feedings with Dx Sepsis due to Left Lower Lobe Aspiration Pneumonia. Room air.
Met with patient and spoke with Rashmi by phone; both agree to d/c home today. IMM completed. Patient and agree to HH for SN & PT and chooses [facility]. confirms she assists patient with bolus tube feeds and she has adequate tube
feeds & supplies at home. will provide transport home.
Referral to [facility]; patient is accepted.
Plan home today with [facility]N.
[2024-08-23 15:47] VITALS: BP 143/99
== END 2024-08-23 16:03 | disposition home health service (06) | DRG 871 ==
LOC: 4 EAST ACU 02:28
PROVIDERS: Hospitalist; ADMITTING PHYSICIAN Internal Medicine; ATTENDING PHYSICIAN Internal Medicine; CONSULT PHYSICIAN Internal Medicine Critical Care Medicine; EMERGENCY PHYSICIAN Student in an Organized Health Care Education/Training Program; FAMILY PHYSICIAN Family Medicine
PROC: 5A09357 Assistance with Respiratory Ventilation, Less than 24 Consecutive Hours, Continuous Positive Airway Pressure (ICD-10-PCS; 2024-08-19)
PROC: 5A0935A Assistance with Respiratory Ventilation, Less than 24 Consecutive Hours, High Flow/Velocity Cannula (ICD-10-PCS; 2024-08-20)
DX: A41.89 Other specified sepsis (principal); J69.0 Pneumonitis due to inhalation of food and vomit; R65.21 Severe sepsis with septic shock; J96.01 Acute respiratory failure with hypoxia; E27.3 Drug-induced adrenocortical insufficiency; E87.20 Acidosis, unspecified; J90 Pleural effusion, not elsewhere classified; R17 Unspecified jaundice; G83.9 Paralytic syndrome, unspecified; I10 Essential (primary) hypertension; E03.9 Hypothyroidism, unspecified; K21.9 Gastro-esophageal reflux disease without esophagitis; G20.A1 Parkinson's disease without dyskinesia, without mention of fluctuations; M35.3 Polymyalgia rheumatica; I25.10 Atherosclerotic heart disease of native coronary artery without angina pectoris; I73.9 Peripheral vascular disease, unspecified; R13.10 Dysphagia, unspecified; D69.59 Other secondary thrombocytopenia; Y84.2 Radiological procedure and radiotherapy as the cause of abnormal reaction of the patient, or of later complication, without mention of misadventure at the time of the procedure; Z66 Do not resuscitate; Z93.1 Gastrostomy status; Z92.3 Personal history of irradiation; Z85.810 Personal history of malignant neoplasm of tongue; Z92.21 Personal history of antineoplastic chemotherapy; Z95.1 Presence of aortocoronary bypass graft; Z79.890 Hormone replacement therapy; Z79.82 Long term (current) use of aspirin; Z79.52 Long term (current) use of systemic steroids; Z85.01 Personal history of malignant neoplasm of esophagus; Z91.030 Bee allergy status; Z91.013 Allergy to seafood; Z87.01 Personal history of pneumonia (recurrent); Z86.16 Personal history of COVID-19; Z80.1 Family history of malignant neoplasm of trachea, bronchus and lung; Z82.49 Family history of ischemic heart disease and other diseases of the circulatory system; Z83.3 Family history of diabetes mellitus; Z11.52 Encounter for screening for COVID-19; Z85.828 Personal history of other malignant neoplasm of skin
CPT/HCPCS: 71045; 80048; 80053; 82962; 83605; 83735; 83880; 84100; 84443; 84484; 85025; 85027; 85610; 85730; 87040; 87502; 87641; 87811; 93005; 94640; 94660; 97116; 97163; 99291

== ENCOUNTER → 2024-09-09 11:32 | Outpatient (REF) | payer MEDICARE, OTHER, SELFPAY | LOC: RAD 11:32 | PROVIDERS: ATTENDING PHYSICIAN Family Medicine | DX: J69.0 Pneumonitis due to inhalation of food and vomit (principal) | CPT/HCPCS: 71046 ==

== ENCOUNTER → 2024-12-11 13:08 | Outpatient (REF) | payer MEDICARE, OTHER, SELFPAY | LOC: RAD 13:08 | PROVIDERS: ATTENDING PHYSICIAN Nurse Practitioner Adult Health; FAMILY PHYSICIAN Family Medicine | DX: K94.23 Gastrostomy malfunction (principal) | CPT/HCPCS: 49465 ==